=== PATIENT | male | born 1925 | race Caucasian/White ===

== ENCOUNTER 2016-04-17 14:53 | Emergency (ER) | payer OTHER, MEDICARE ==
[~2016-04-17] VITALS: Ht 170.2 cm; Wt 82.0 kg
[~2016-04-17 14:53] MED LIST: AMIT10TA6 PO; CLOT1CRE8 TOPICAL; COLA100C3 PO; COUM5TAB PO; COUM7.5T PO; D31000CA PO; FURO20TA PO; HIBI4LIQ TOPICAL; LISI2.5T3 PO; MAGN400T2 PO; METO25TA3 PO; MULTTAB67 PO; OMEP20TA PO; OXYC1TAB63 PO; PRAV20TA PO; PROS5TAB PO; TAMS5CAP PO; TYLE325T PO; ULTR50TA5 PO; [UNRECOGNIZED DRUG - CODE] TOP
[2016-04-17 14:57] VITALS: BP 134/62; PULSE 84; RESP 17; TEMP 97.9; O2SAT 98
[2016-04-17 16:55] VITALS: BP 118/64; PULSE 84; RESP 16; O2SAT 95
--- NOTE | 2016-04-17 17:29 | PD ---
HPI Chief Complaint: Back/ Neck Pain or Injury Time Seen by Provider: 17:13 Travel History International Travel<30 days: No Contact w/Intl Traveler<30days: No Traveled to known affect area: No History of Present Illness HPI 89-year-old male came to the emergency room with acute on chronic low back pain. His is here who is giving history as well. Patient has history of T12 compression fracture. He fell in November and since then has additional lower back pain. However for past 2 weeks the pain has been unbearable. He took tramadol today but he seems very uncomfortable at this point. Patient has history of renal cell carcinoma and is seeing oncology. He had a CAT scan done 2 days ago which they do not have the result of. However given his severe pain and his decided to bring him to the emergency room. [facility] Past Medical History Narrative Medical List of his past medical, surgical, social and family history is reviewed from the nursing note. Hx Anticoagulant Therapy: Yes Arthritis: Yes Asthma: No Atrial Fibrillation: Yes Autoimmune Disease: No Blood Disorders: No Anxiety: No Depression: No Heart Rhythm Problems: Yes (A FIB in last 2 yrs) Cancer: Yes (CLEAR RENAL CELL CARCINOMA) Cardiovascular Problems: Yes High Cholesterol: Yes Chemotherapy: No Chest Pain: No Congestive Heart Failure: Yes COPD: No Cerebrovascular Accident: Yes Diabetes: No Diminished Hearing: Yes (HEARING AID BILATERALLY) Endocrine: No Gastrointestinal Disorders: Yes (constipation) GERD: Yes Genitourinary: No Headaches: Yes (TEMPORAL ARTERITIS) Hepatitis: No Hiatal Hernia: No Hypertension: No Immune Disorder: Yes (temporal arteritis) Implanted Vascular Access Dvce: Yes Kidney Stones: No Musculoskeletal: Yes (lizzie hands) Neurologic: Yes Psychiatric: No Reproductive: No Respiratory: Yes Integumentary: Yes (PEMFIGIS) Immunizations Current: Yes Migraines: No Radiation Therapy: No Renal Failure: No Seizures: No Sickle Cell Disease: No Sleep Apnea: No Thyroid Disease: No Ulcer: No Tetanus Vaccination: < 5 Years Influenza Vaccination: Yes Past Surgical History Abdominal Surgery: Yes (HERNIA REPAIR) AICD: No Body Medical Devices: PROSTHESIS IN THE THROAT, MITRAL VALVE REPLACEMENT 2003 Cardiac Surgery: Yes (OPEN HEART FOR MVP) Ear Surgery: No Endocrine Surgery: No Eye Surgery: No Genitourinary Surgery: No Gynecologic Surgery: No Joint Replacement: Yes (left knee) Neurologic Surgery: No Oral Surgery: No Pacemaker: No Thoracic Surgery: Yes Other Surgery: Yes (PROTHESIS IN NECK left / CRYOABLATION) Social History Alcohol Use: No Tobacco Use: No Substance Use: No Allergies-Medications (Allergen,Severity, Reaction): Coded Allergies: Coreg (Unverified Allergy, Severe, 04/17/16) Adhesives (Verified Adverse Reaction, Severe, SKIN TEARS, 04/17/16) Hydrocodone (Verified Adverse Reaction, Mild, 04/17/16) REPORTS RED SPOTS ON SKIN AND TINGLING Comments List of his allergies reviewed from the nursing note. Reported Meds & Prescriptions Reported Meds & Active Scripts Active Percocet (Oxycodone-Acetaminophen) 5-325 mg Tab 1 Tab PO Q6H PRN Metoprolol Tartrate 25 Mg Tab 25 Mg PO BID Reported Tacrolimus Topical 0.1 % Oint 1 Applic TOPICAL DAILY PRN Multi-Vitamin/Minerals (Multiple Vitamins W/ Minerals) 1 Tab Tab 1 Tab PO DAILY Vitamin D3 (Cholecalciferol) 1,000 Unit Tab 1,000 Units PO DAILY Magnesium Oxide 420 Mg Tab 420 Mg PO BID Ultram (Tramadol HCl) 50 Mg Tab 100 Mg PO Q8HR PRN Tylenol (Acetaminophen) 325 Mg Tab 325 Mg PO Q12HR PRN Proscar (Finasteride) 5 Mg Tab 5 Mg PO DAILY Do not crush. Pravachol (Pravastatin) 20 Mg Tab 20 Mg PO HS Omeprazole 20 Mg Tab 20 Mg PO BID Lisinopril 2.5 Mg Tab 2.5 Mg PO DAILY Hibiclens Topical (Chlorhexidine Gluconate) 4% Liq 1 Applic TOPICAL EVERY OTHER DAY Furosemide 20 Mg Tab 20 Mg PO DAILY Flomax (Tamsulosin HCl) 0.4 Mg Cap 0.4 Mg PO DAILY Coumadin (Warfarin) 5 Mg Tab 5 Mg PO DAILY Colace (Docusate Sodium) 100 Mg Cap 200 Mg PO BID Amitriptyline (Amitriptyline HCl) 10 Mg Tab 10 Mg PO HS Clotrimazole AF Topical (Clotrimazole) 1% Cream 1 Applic TOPICAL BID Narrative Medication List of his home medications reviewed from the nursing note. Review of Systems Except as stated in HPI: all other systems reviewed are Neg Physical Exam Narrative GENERAL: Awake, alert, elderly, moderate distress SKIN: Warm and dry. HEAD: Atraumatic. Normocephalic. EYES: Pupils equal and round. No scleral icterus. No injection or drainage. ENT: No nasal bleeding or discharge. Mucous membranes pink and moist. NECK: Trachea midline. No JVD. CARDIOVASCULAR: Regular rate and rhythm. No murmur appreciated. RESPIRATORY: No accessory muscle use. Clear to auscultation. Breath sounds equal bilaterally. GASTROINTESTINAL: Abdomen soft, non-tender, nondistended. Hepatic and splenic margins not palpable. MUSCULOSKELETAL: No obvious deformities. No clubbing. No cyanosis. No edema. Spine palpated, no step-offs, paraspinal spasm NEUROLOGICAL: Awake and alert. No obvious cranial nerve deficits. Motor grossly within normal limits. Normal speech. PSYCHIATRIC: Appropriate mood and affect; insight and judgment normal. Data Data Last Documented VS Vital Signs Date Time Temp Pulse Resp B/P Pulse Ox O2 Delivery O2 Flow Rate FiO2 04/17/16 18:40 99 Nasal Cannula 2 04/17/16 18:00 78 16 125/65 04/17/16 14:57 97.9 Orders Complete Blood Count With Diff (04/17/16 17:50) Basic Metabolic Panel (Bmp) (04/17/16 17:50) Mri T Spine W & W/O Contrast (04/17/16 ) Mri L Spine W&W/O Contrast (04/17/16 ) Mri Pelvis W&W/O Contrast (04/17/16 ) Morphine Inj (Morphine Inj) (04/17/16 18:00) Sodium Chlorid 0.9% 500 Ml Inj (Ns 500 M (04/17/16 18:00) Gadodiamide Pf Inj (Omniscan Pf Inj) (04/17/16 20:09) Morphine Inj (Morphine Inj) (04/17/16 21:00) Acetamin-Hydrocod 325-10 Mg ([place] 10-32 (04/17/16 22:00) Oxycodone-Acetamin 10-325 Mg (Percocet 1 (04/17/16 22:00) Labs Laboratory Tests Test 04/17/16 18:05 White Blood Count 5.2 TH/MM3 Red Blood Count 3.79 MIL/MM3 Hemoglobin 11.1 GM/DL Hematocrit 33.8 % Mean Corpuscular Volume 89.1 FL Mean Corpuscular Hemoglobin 29.2 PG Mean Corpuscular Hemoglobin 32.8 % Concent Red Cell Distribution Width 14.6 % Platelet Count 173 TH/MM3 Mean Platelet Volume 8.2 FL Neutrophils (%) (Auto) 56.8 % Lymphocytes (%) (Auto) 26.0 % Monocytes (%) (Auto) 10.9 % Eosinophils (%) (Auto) 5.1 % Basophils (%) (Auto) 1.2 % Neutrophils # (Auto) 3.0 TH/MM3 Lymphocytes # (Auto) 1.4 TH/MM3 Monocytes # (Auto) 0.6 TH/MM3 Eosinophils # (Auto) 0.3 TH/MM3 Basophils # (Auto) 0.1 TH/MM3 CBC Comment DIFF FINAL Differential Comment Sodium Level 140 MEQ/L Potassium Level 4.5 MEQ/L Chloride Level 102 MEQ/L Carbon Dioxide Level 32.7 MEQ/L Anion Gap 5 MEQ/L Blood Urea Nitrogen 23 MG/DL Creatinine 1.34 MG/DL Estimat Glomerular Filtration 50 ML/MIN Rate Random Glucose 94 MG/DL Calcium Level 8.8 MG/DL MDM Medical Decision Making Medical Screen Exam Complete: Yes Emergency Medical Condition: Yes Medical Record Reviewed: Yes Differential Diagnosis Compression fracture, metastatic bone disease Narrative Course 6:49 PM I have ordered an MRI of his spine. Awaiting for the MRI to be done and resulted. Patient was treated with morphine for pain. Case was signed over to the oncoming ER physician. Blood test results of back and patient has some renal insufficiency. Otherwise blood test results are within acceptable limit. Patient is getting 500 cc of IV fluid bolus. Procedures EKG Prior to Arrival: No Scripts Oxycodone-Acetaminophen (Percocet)5-325 mg Tab1 Tab PO Q6H PRN (PAIN) #20 TAB Ref 0 Prov:Geoff Reynolds MD 04/17/16 Sissy Ivan MD Apr 17, 2016 17:29
[2016-04-17 18:00] VITALS: BP 125/65; PULSE 78; RESP 16; O2SAT 95
[2016-04-17] MEDS ORDERED: MORPHINE SULFATE 4 MG/ML INJ IV PUSH ONE ×2 (18:00→21:00)
[2016-04-17] MEDS ORDERED: SODIUM CHLORID 0.9% 500 ML INJ 500 ML IV ONE (18:00)
[2016-04-17] MEDS ORDERED: VITA100018 PO (18:09)
[2016-04-17] MEDS ORDERED: MULTTAB62 PO (18:09)
[2016-04-17] MEDS ORDERED: MAGN420T PO (18:09)
[2016-04-17] MEDS ORDERED: TACR0.1O TOPICAL (18:10)
[2016-04-17 18:28] LABS: BASOPHIL # 0.1 TH/MM3 (0-0.2); BASOPHIL % 1.2 % (0.0-2.0); EOSINOPHIL # 0.3 TH/MM3 (0-0.4); EOSINOPHIL % 5.1 % (0.0-4.0); HEMATOCRIT 33.8 % (39.0-51.0); HEMO FLAGS DIFF FINAL; LYMPHOCYTE # 1.4 TH/MM3 (1.0-4.8); MEAN CELL VOLUME 89.1 FL (80.0-100.0); MEAN CORPUSCULAR HEMOGLOBIN 29.2 PG (27.0-34.0); MEAN CORPUSCULAR HGB CONC 32.8 % (32.0-36.0); MONO % 10.9 % (0.0-8.0); NEUT % 56.8 % (16.0-70.0); PLATELET COUNT 173 TH/MM3 (150-450); RED BLOOD COUNT 3.79 MIL/MM3 (4.50-5.90); RED CELL DISTRIBUTION WIDTH 14.6 % (11.6-17.2); WHITE BLOOD COUNT 5.2 TH/MM3 (4.0-11.0)
[2016-04-17 18:48] LABS: BICARBONATE 32.7 MEQ/L (21.0-32.0); POTASSIUM 4.5 MEQ/L (3.5-5.1)
--- NOTE | 2016-04-17 19:02 | PD ---
Physical Exam Date Seen by Provider: Apr 17, 2016 Time Seen by Provider: 19:01 Narrative The patient is a 89-year-old male who was initially evaluated by the previous physician, Dr. Ivan. Please refer to the initial history, physical, diagnostic evaluation, treatment modality plan. The patient has a history of renal cell carcinoma and complains of increasing back pain, apparently the patient recently had a CT of the lumbar spine. The patient signed out at 7 PM with MRI of the spine and pelvis pending, evaluation for possible metastasis and increasing pain. Data Data Last Documented VS Vital Signs Date Time Temp Pulse Resp B/P Pulse Ox O2 Delivery O2 Flow Rate FiO2 04/17/16 18:40 99 Nasal Cannula 2 04/17/16 18:00 78 16 125/65 04/17/16 14:57 97.9 Orders Complete Blood Count With Diff (04/17/16 17:50) Basic Metabolic Panel (Bmp) (04/17/16 17:50) Mri T Spine W & W/O Contrast (04/17/16 ) Mri L Spine W&W/O Contrast (04/17/16 ) Mri Pelvis W&W/O Contrast (04/17/16 ) Morphine Inj (Morphine Inj) (04/17/16 18:00) Sodium Chlorid 0.9% 500 Ml Inj (Ns 500 M (04/17/16 18:00) Gadodiamide Pf Inj (Omniscan Pf Inj) (04/17/16 20:09) Morphine Inj (Morphine Inj) (04/17/16 21:00) Acetamin-Hydrocod 325-10 Mg ([place] 10-32 (04/17/16 22:00) Oxycodone-Acetamin 10-325 Mg (Percocet 1 (04/17/16 22:00) Labs Laboratory Tests Test 04/17/16 18:05 White Blood Count 5.2 TH/MM3 Red Blood Count 3.79 MIL/MM3 Hemoglobin 11.1 GM/DL Hematocrit 33.8 % Mean Corpuscular Volume 89.1 FL Mean Corpuscular Hemoglobin 29.2 PG Mean Corpuscular Hemoglobin 32.8 % Concent Red Cell Distribution Width 14.6 % Platelet Count 173 TH/MM3 Mean Platelet Volume 8.2 FL Neutrophils (%) (Auto) 56.8 % Lymphocytes (%) (Auto) 26.0 % Monocytes (%) (Auto) 10.9 % Eosinophils (%) (Auto) 5.1 % Basophils (%) (Auto) 1.2 % Neutrophils # (Auto) 3.0 TH/MM3 Lymphocytes # (Auto) 1.4 TH/MM3 Monocytes # (Auto) 0.6 TH/MM3 Eosinophils # (Auto) 0.3 TH/MM3 Basophils # (Auto) 0.1 TH/MM3 CBC Comment DIFF FINAL Differential Comment Sodium Level 140 MEQ/L Potassium Level 4.5 MEQ/L Chloride Level 102 MEQ/L Carbon Dioxide Level 32.7 MEQ/L Anion Gap 5 MEQ/L Blood Urea Nitrogen 23 MG/DL Creatinine 1.34 MG/DL Estimat Glomerular Filtration 50 ML/MIN Rate Random Glucose 94 MG/DL Calcium Level 8.8 MG/DL [facility] Medical Record Reviewed: Yes Supervised Visit with MAZIN: No Interpretation(s) Laboratory Tests Test 04/17/16 18:05 White Blood Count 5.2 TH/MM3 Red Blood Count 3.79 MIL/MM3 Hemoglobin 11.1 GM/DL Hematocrit 33.8 % Mean Corpuscular Volume 89.1 FL Mean Corpuscular Hemoglobin 29.2 PG Mean Corpuscular Hemoglobin 32.8 % Concent Red Cell Distribution Width 14.6 % Platelet Count 173 TH/MM3 Mean Platelet Volume 8.2 FL Neutrophils (%) (Auto) 56.8 % Lymphocytes (%) (Auto) 26.0 % Monocytes (%) (Auto) 10.9 % Eosinophils (%) (Auto) 5.1 % Basophils (%) (Auto) 1.2 % Neutrophils # (Auto) 3.0 TH/MM3 Lymphocytes # (Auto) 1.4 TH/MM3 Monocytes # (Auto) 0.6 TH/MM3 Eosinophils # (Auto) 0.3 TH/MM3 Basophils # (Auto) 0.1 TH/MM3 CBC Comment DIFF FINAL Differential Comment Sodium Level 140 MEQ/L Potassium Level 4.5 MEQ/L Chloride Level 102 MEQ/L Carbon Dioxide Level 32.7 MEQ/L Anion Gap 5 MEQ/L Blood Urea Nitrogen 23 MG/DL Creatinine 1.34 MG/DL Estimat Glomerular Filtration 50 ML/MIN Rate Random Glucose 94 MG/DL Calcium Level 8.8 MG/DL Last Impressions Thoracic Spine MRI 04/17/16 0000 Signed Impressions: Service Date/Time: April 19:08 - CONCLUSION: 1. No acute fracture or subluxation of the thoracic spine. 2. Diffuse marrow heterogeneity , likely osteopenia. No focal bone lesion seen. 3. There is moderate, chronic appearing superior endplate compression deformity of the T12 vertebral body. 4. Expanded T11/T12 disc with slight signal heterogeneity, likely on the basis of the old T12 fracture. Discitis is not suspected. 5. Exaggerated thoracic kyphosis. Mild multilevel degenerative changes. Cristiano Espinoza MD Pelvis MRI 04/17/16 0000 Signed Impressions: Service Date/Time: April 19:08 - CONCLUSION: Mild bilateral iliacus muscle edema, presumably strain or irritation. Otherwise normal MRI of the pelvis. Cristiano Espinoza MD Lumbar Spine MRI 04/17/16 0000 Signed Impressions: Service Date/Time: April 19:08 - CONCLUSION: 1. No fracture or acute-appearing malalignment of lumbar spine. 2. Multilevel degenerative changes as above. It is associated moderate spinal stenosis at L4/L5. 3. Anterior annular fissures at multiple levels which may be additional sources of low back pain. Cristiano Espinoza MD Differential Diagnosis Differential diagnosis includes compression fracture, radiculopathy, metastasis , fracture, spinal stenosis, back strain. Narrative Course The patient was initially evaluated by the previous physician, Dr. Ivan. Please refer to the initial history, physical, diagnostic evaluation, and treatment modality plan. The patient was signed out at 7 PM with MRI of the thoracic spine, lumbar spine, and pelvis pending. The patient's MRIs were noted , the patient has degenerative changes, annular fissure tears, and bilateral mild edema of the iliacus muscle, possibly from irritation and/or strain. No obvious bone metastasis. I discussed the MRI findings with the patient and his at bedside. I advised the patient to [facility] and/or pain management and/ or orthopedics if pain continues. Patient will be provided a copy of his MRIs at discharge and pain medications at discharge. Diagnosis Primary Impression: Back pain Qualified Code: M54.5 - Low back pain without sciatica, unspecified back pain laterality, unspecified chronicity Patient Instructions: General Instructions Additional Instruction: Please provide a patient a copy of his MRI results at discharge. Pain medications as directed. Follow-up with your primary physician. Return if symptoms worsen or progress. Med/Other Pt SpecificInfo: Prescription(s) given Scripts Oxycodone-Acetaminophen (Percocet)5-325 mg Tab1 Tab PO Q6H PRN (PAIN) #20 TAB Ref 0 Prov:Geoff Reynodls MD 04/17/16 Disposition: 01 DISCHARGE HOME Condition: Stable Geoff Reynolds MD Apr 17, 2016 19:02
[2016-04-17] MEDS ORDERED: GADODIAMIDE PF 287 MG/ML 20 ML VIAL (for RAD MRI) IV ONE (20:09)
--- NOTE | 2016-04-17 21:15 | RADRPT ---
EXAM DATE/TIME: 04/17/2016 19:08 [facility] COMPARISON: No previous studies available for comparison. INDICATIONS : Pain. CONTRAST: 16 cc Omniscan (gadodiamide) IV MEDICAL HISTORY : Congestive heart failure. Stroke Renal cancer. SURGICAL HISTORY : Right carotid surgery, left knee replacement, vocal cord prosthesis, valve replacement and hernia rep air. ENCOUNTER: Initial ACUITY: 1 day PAIN SCORE: 6/10 LOCATION: Back. TECHNIQUE: Multiplanar multisequence MRI of the thoracic spine was performed. FINDINGS: There is a severe chronic appearing kyphotic deformity. There is mild, diffuse heterogeneity of the m arrow likely on the basis of osteoporosis. There is moderate, chronic appearing compression deformity superior endplate of T12. I don't see an acute fracture or well-defined/measurable bone lesion. There is some enhancement in T1 signal of the T11/T12 disc, probably partly calcified. It may enhance slightly. Doubt discitis. Small posterior disc protrusions are seen at T9/T10 T10/T11, T11/T12 and T12/L1. No significant osmin inal or spinal stenosis demonstrated at any level. CONCLUSION: 1. No acute fracture or subluxation of the thoracic spine. 2. Diffuse marrow heterogeneity, likely osteopenia. No focal bone lesion seen. 3. There is moderate, chronic appearing superior endplate compression deformity of the T12 vertebral body. 4. Expanded T11/T12 disc with slight signal heterogeneity, likely on the basis of the old T12 fractur e. Discitis is not suspected. 5. Exaggerated thoracic kyphosis. Mild multilevel degenerative changes. Cristiano Espinoza MD on April 17, 2016 at 21:09 Board Certified Radiologist. This report was verified electronically.
--- NOTE | 2016-04-17 21:20 | RADRPT ---
EXAM DATE/TIME: 04/17/2016 19:08 [facility] COMPARISON: No previous studies available for comparison. INDICATIONS : Pain. CONTRAST: 16 cc Omniscan (gadodiamide) IV MEDICAL HISTORY : Congestive heart failure. Stroke Renal cancer. SURGICAL HISTORY : Right carotid surgery, left knee replacement, vocal cord prosthesis, valve replacement and hernia rep air. ENCOUNTER: Initial ACUITY: 1 day PAIN SCORE: 6/10 LOCATION: Back. TECHNIQUE: Multiplanar multisequence MRI of the lumbar spine was performed with and without contrast. FINDINGS: The most caudal appearing lumbar vertebra is numbered as L5. VERTEBRAE: Diffusely heterogeneous marrow without a focal lesion. Lumbar vertebral bodies have normal height. Th ere is grade 1 degenerative appearing anterolisthesis at L4/L5. [place]: Normal level and configuration. POST CONTRAST: No abnormal areas of contrast enhancement are seen. T12-L1: The disc is desiccated but otherwise within normal limits. No foraminal or spinal stenosis. L1-L2: The disc is desiccated but otherwise within normal limits. No foraminal or spinal stenosis. L2-L3: The disc is desiccated and has mild loss of height. There is diffuse bulging of the disc annulus and mild, bilateral facet osteoarthritis. Mild bilateral foraminal encroachment. L3-L4: The disc is desiccated and has mild to moderate loss of height. There is an anterior annular fissure. Posteriorly, there is a small, broad disc protrusion and moderate bilateral facet osteoarthritis. Th ere is mild spinal stenosis, mainly the right lateral recess. There is slight foraminal encroachment, mainly on the right. L4-L5: The disc is desiccated and has mild loss of height. There is an anterior annular fissure. Grade 1 deg enerative anterolisthesis. There is a small, broad posterior disc protrusion and moderate to severe b ilateral facet osteoarthritis with hypertrophic bone and mild thickening of the ligamentum flavum. Th ere is moderate spinal stenosis and mild, bilateral foraminal encroachment. L5-S1: The disc is desiccated but otherwise within normal limits. There is mild right and moderate left face t osteoarthritis without significant foraminal or spinal stenosis. L5 may be partially sacralized on the left. CONCLUSION: 1. No fracture or acute-appearing malalignment of lumbar spine. 2. Multilevel degenerative changes as above. It is associated moderate spinal stenosis at L4/L5. 3. Anterior annular fissures at multiple levels which may be additional sources of low back pain. Cristiano Espinoza MD on April 17, 2016 at 21:14 Board Certified Radiologist. This report was verified electronically.
--- NOTE | 2016-04-17 21:28 | RADRPT ---
EXAM DATE/TIME: 04/17/2016 19:08 [facility] COMPARISON: CT ABDOMEN & PELVIS W/O CONTRAST, April 06, 2014, 22:41. INDICATIONS : Pain. Left sided back pain. CONTRAST: 16 cc Omniscan (gadodiamide) IV MEDICAL HISTORY : Congestive heart failure. Stroke Renal cancer. SURGICAL HISTORY : Right carotid surgery, left knee replacement, vocal cord prosthesis, valve replacement and hernia rep air. ENCOUNTER: Initial ACUITY: 1 day PAIN SCORE: 8/10 LOCATION: Back and pelvis. TECHNIQUE: Multiplanar, multisequence magnetic resonance imaging of the pelvis was performed. FINDINGS: The bony pelvis is intact and has normal morphology. No subluxation of either hip. Very mild bilatera l hip oss arthritis noted. Patient has mild edema of both iliacus muscles. Incidentally seen lobulated right pelvic kidney. The morphology and location are similar to the prior CT. CONCLUSION: Mild bilateral iliacus muscle edema, presumably strain or irritation. Otherwise normal MRI of the pel vis. Cristiano Espinoza MD on April 17, 2016 at 21:24 Board Certified Radiologist. This report was verified electronically.
[2016-04-17] MEDS ORDERED: PERC5TAB12 PO (21:54)
[2016-04-17] MEDS ORDERED: oxyCODONE/ACETAMINOPHEN 10 MG/325 MG TAB PO ONE (22:00)
[2016-04-17] MEDS ORDERED: ACETAMINOPHEN/HYDROcodone 325 MG/10 MG TAB PO ONE (22:00)
== END 2016-04-17 22:29 | disposition home or self-care (01) ==
LOC: NEPC 14:53
DX: M54.5 Low back pain (principal); G89.29 Other chronic pain; I48.91 Unspecified atrial fibrillation; E78.00 Pure hypercholesterolemia, unspecified; I50.9 Heart failure, unspecified; Z95.2 Presence of prosthetic heart valve; Z79.01 Long term (current) use of anticoagulants
CPT/HCPCS: 72157; 72158; 72197; 80048; 85025; 96361; 96374; 96376; 99284; A9579; J2270; J7040

== ENCOUNTER 2016-04-29 10:35 | Inpatient (IN) | payer OTHER, MEDICARE ==
[2016-04-29] VITALS (7 sets, daily range): BP systolic 140–180; BP diastolic 64–91; PULSE 50–87; RESP 16–26; TEMP 98.4–98.5; O2SAT 96–100
[~2016-04-29 10:35] MED LIST changes: -COUM7.5T PO; -D31000CA PO; -MAGN400T2 PO; +MAGN420T PO; +MULTTAB62 PO; -MULTTAB67 PO; -OXYC1TAB63 PO; +PERC5TAB12 PO; +TACR0.1O TOPICAL; +VITA100018 PO; -[UNRECOGNIZED DRUG - CODE] TOP
--- NOTE | 2016-04-29 11:12 | PD ---
HPI Chief Complaint: Chest Pain Time Seen by Provider: 10:38 Travel History International Travel<30 days: No Contact w/Intl Traveler<30days: No Traveled to known affect area: No History of Present Illness HPI The patient is a 89-year-old male who presents emergency department for chest pain or shortness of breath. The patient has a two-week history of shortness of breath which is progressively been worsening. He also notes a 10 pound weight gain over the last several weeks with increase in edema lower extremities. He now complains of anterior chest pain and pressure with exertional shortness of breath. The patient was seen by his oncologist earlier today, Dr. Dawkins, who referred him to the [facility] clinic. The [facility] told the patient it would be approximately one hour to be evaluated and sent him to the emergency department. The patient is followed by his oncologist for history of renal cell carcinoma. The patient does have a history congestive heart failure follows up with the mechanical systems designer at the [facility] clinic. He is also been seen by Dr. Gonzalez in the past. The patient is currently on Coumadin. He denies any current nausea, vomiting, or abdominal pain. He does note when he bends over, his face will flush. PFSH Past Medical History Hx Anticoagulant Therapy: Yes Arthritis: Yes Asthma: No Atrial Fibrillation: Yes Autoimmune Disease: No Blood Disorders: No Anxiety: No Depression: No Heart Rhythm Problems: Yes (A FIB in last 2 yrs) Cancer: Yes (CLEAR RENAL CELL CARCINOMA) Cardiovascular Problems: Yes High Cholesterol: Yes Chemotherapy: No Chest Pain: No Congestive Heart Failure: Yes COPD: No Cerebrovascular Accident: Yes Diabetes: No Diminished Hearing: Yes (HEARING AID BILATERALLY) Endocrine: No Gastrointestinal Disorders: Yes (constipation) GERD: Yes Genitourinary: No Headaches: Yes (TEMPORAL ARTERITIS) Hepatitis: No Hiatal Hernia: No Hypertension: No Immune Disorder: Yes (temporal arteritis) Implanted Vascular Access Dvce: Yes Kidney Stones: No Musculoskeletal: Yes (lizzie hands) Neurologic: Yes Psychiatric: No Reproductive: No Respiratory: Yes Integumentary: Yes (PEMFIGIS) Immunizations Current: Yes Migraines: No Radiation Therapy: No Renal Failure: No Seizures: No Sickle Cell Disease: No Sleep Apnea: No Thyroid Disease: No Ulcer: No Past Surgical History Abdominal Surgery: Yes (HERNIA REPAIR) AICD: No Body Medical Devices: PROSTHESIS IN THE THROAT, MITRAL VALVE REPLACEMENT 2003 Cardiac Surgery: Yes (OPEN HEART FOR MVP) Ear Surgery: No Endocrine Surgery: No Eye Surgery: No Genitourinary Surgery: No Gynecologic Surgery: No Joint Replacement: Yes (left knee) Neurologic Surgery: No Oral Surgery: No Pacemaker: No Thoracic Surgery: Yes Other Surgery: Yes (PROTHESIS IN NECK left / CRYOABLATION) Social History Alcohol Use: No Tobacco Use: No Substance Use: No Allergies-Medications (Allergen,Severity, Reaction): Coded Allergies: Coreg (Verified Allergy, Severe, 04/29/16) Adhesives (Verified Adverse Reaction, Severe, SKIN TEARS, 04/29/16) Hydrocodone (Verified Adverse Reaction, Mild, 04/29/16) REPORTS RED SPOTS ON SKIN AND TINGLING Reported Meds & Prescriptions Reported Meds & Active Scripts Active Percocet (Oxycodone-Acetaminophen) 5-325 mg Tab 1 Tab PO Q6H PRN Metoprolol Tartrate 25 Mg Tab 25 Mg PO BID Reported Coumadin (Warfarin) 5 Mg Tab 2.5 Mg PO MO Take 1/2 tablet (2.5mg) daily on Thursday Tacrolimus Topical 0.1 % Oint 1 Applic TOPICAL DAILY PRN Multi-Vitamin/Minerals (Multiple Vitamins W/ Minerals) 1 Tab Tab 1 Tab PO DAILY Vitamin D3 (Cholecalciferol) 1,000 Unit Tab 1,000 Units PO DAILY Magnesium Oxide 420 Mg Tab 420 Mg PO BID Ultram (Tramadol HCl) 50 Mg Tab 100 Mg PO Q8HR PRN Tylenol (Acetaminophen) 325 Mg Tab 325 Mg PO Q12HR PRN Proscar (Finasteride) 5 Mg Tab 5 Mg PO DAILY Do not crush. Pravachol (Pravastatin) 20 Mg Tab 20 Mg PO HS Omeprazole 20 Mg Tab 20 Mg PO BID Lisinopril 2.5 Mg Tab 2.5 Mg PO DAILY Hibiclens Topical (Chlorhexidine Gluconate) 4% Liq 1 Applic TOPICAL EVERY OTHER DAY Furosemide 20 Mg Tab 20 Mg PO DAILY Flomax (Tamsulosin HCl) 0.4 Mg Cap 0.4 Mg PO DAILY Coumadin (Warfarin) 5 Mg Tab 5 Mg PO SUTUWETHFRSA Take 1 tablet (5mg) daily on Thursday,Thursday,Thursday,,Thursday and Thursday Colace (Docusate Sodium) 100 Mg Cap 200 Mg PO BID Amitriptyline (Amitriptyline HCl) 10 Mg Tab 10 Mg PO HS Clotrimazole AF Topical (Clotrimazole) 1% Cream 1 Applic TOPICAL BID Review of Systems Except as stated in HPI: all other systems reviewed are Neg General / Constitutional: Positive: Weight Gain, No: Fever Cardiovascular: Positive: Chest Pain or Discomfort, Dyspnea on exertion Respiratory: Positive: Shortness of Breath, No: Cough Gastrointestinal: No: Nausea, Vomiting, Abdominal Pain Musculoskeletal: Positive: Edema Physical Exam Narrative GENERAL: Awake, alert, 89-year-old male who appears his stated age and in mild respiratory distress. SKIN: Warm and dry. HEAD: Atraumatic. Normocephalic. EYES: No injection or drainage. ENT: No nasal bleeding or discharge. Mucous membranes pink and moist. NECK: Trachea midline. No JVD. CARDIOVASCULAR: Regular, bradycardic with a heart rate in the 50s. RESPIRATORY: Crackles noted in the bases bilaterally. GASTROINTESTINAL: Abdomen soft, non-tender, nondistended. No rebound tenderness. MUSCULOSKELETAL: No obvious deformities. No clubbing. No cyanosis. Bilateral lower extremity pitting edema with mild swelling of the right leg greater than the left leg. NEUROLOGICAL: Awake and alert. No obvious cranial nerve deficits. Motor grossly within normal limits. Normal speech. PSYCHIATRIC: Appropriate mood and affect; insight and judgment normal. Data Data Last Documented VS Vital Signs Date Time Temp Pulse Resp B/P Pulse Ox O2 Delivery O2 Flow Rate FiO2 04/29/16 12:37 53 22 157/67 100 Nasal Cannula 04/29/16 11:30 2 04/29/16 10:38 98.5 Orders Electrocardiogram (04/29/16 ) Complete Blood Count With Diff (04/29/16 11:06) Comprehensive Metabolic Panel (04/29/16 11:06) B-Type Natriuretic Peptide (04/29/16 11:06) Act Partial Throm Time (Ptt) (04/29/16 11:06) Prothrombin Time / Inr (Pt) (04/29/16 11:06) Magnesium (Mg) (04/29/16 11:06) Ckmb (Isoenzyme) Profile (04/29/16 11:06) Troponin I (04/29/16 11:06) Iv Access Insert/Monitor (04/29/16 11:06) Ecg Monitoring (04/29/16 11:06) Oximetry (04/29/16 11:06) Oxygen Administration (04/29/16 11:06) Chest, Single Ap (04/29/16 11:06) Sodium Chloride 0.9% Flush (Ns Flush) (04/29/16 11:15) Furosemide Inj (Lasix Inj) (04/29/16 11:15) Aspirin Chew (Aspirin Chew) (04/29/16 11:15) Nitroglycerin 2% Oint (Nitroglycerin 2% (04/29/16 11:15) Admit Order (Ed Use Only) (04/29/16 13:14) Labs Laboratory Tests Test 04/29/16 11:10 White Blood Count 7.2 TH/MM3 Red Blood Count 3.74 MIL/MM3 Hemoglobin 10.9 GM/DL Hematocrit 33.4 % Mean Corpuscular Volume 89.3 FL Mean Corpuscular Hemoglobin 29.2 PG Mean Corpuscular Hemoglobin 32.7 % Concent Red Cell Distribution Width 14.9 % Platelet Count 164 TH/MM3 Mean Platelet Volume 8.6 FL Neutrophils (%) (Auto) 77.8 % Lymphocytes (%) (Auto) 11.8 % Monocytes (%) (Auto) 7.6 % Eosinophils (%) (Auto) 2.2 % Basophils (%) (Auto) 0.6 % Neutrophils # (Auto) 5.6 TH/MM3 Lymphocytes # (Auto) 0.9 TH/MM3 Monocytes # (Auto) 0.5 TH/MM3 Eosinophils # (Auto) 0.2 TH/MM3 Basophils # (Auto) 0.0 TH/MM3 CBC Comment DIFF FINAL Differential Comment Prothrombin Time 38.8 SEC Prothromb Time International 3.3 RATIO Ratio Activated Partial 54.7 SEC Thromboplast Time Sodium Level 140 MEQ/L Potassium Level 4.4 MEQ/L Chloride Level 103 MEQ/L Carbon Dioxide Level 30.4 MEQ/L Anion Gap 7 MEQ/L Blood Urea Nitrogen 24 MG/DL Creatinine 1.34 MG/DL Estimat Glomerular Filtration 50 ML/MIN Rate Random Glucose 80 MG/DL Calcium Level 9.1 MG/DL Magnesium Level 2.3 MG/DL Total Bilirubin 0.9 MG/DL Aspartate Amino Transf 17 U/L (AST/SGOT) Alanine Aminotransferase 15 U/L (ALT/SGPT) Alkaline Phosphatase 80 U/L Total Creatine Kinase 62 U/L Troponin I LESS THAN 0.02 NG/ML B-Type Natriuretic Peptide 214 PG/ML Total Protein 7.1 GM/DL Albumin 3.6 GM/DL [facility] Medical Decision Making Medical Screen Exam Complete: Yes Emergency Medical Condition: Yes Medical Record Reviewed: Yes Interpretation(s) EKG reveals normal sinus rhythm with first-degree AV block, rate 61. Chest x-ray reveals mild cardiomegaly. No acute focal pulmonary infiltrate or pulmonary vascular congestion. Laboratory Tests Test 04/29/16 11:10 White Blood Count 7.2 TH/MM3 Red Blood Count 3.74 MIL/MM3 Hemoglobin 10.9 GM/DL Hematocrit 33.4 % Mean Corpuscular Volume 89.3 FL Mean Corpuscular Hemoglobin 29.2 PG Mean Corpuscular Hemoglobin 32.7 % Concent Red Cell Distribution Width 14.9 % Platelet Count 164 TH/MM3 Mean Platelet Volume 8.6 FL Neutrophils (%) (Auto) 77.8 % Lymphocytes (%) (Auto) 11.8 % Monocytes (%) (Auto) 7.6 % Eosinophils (%) (Auto) 2.2 % Basophils (%) (Auto) 0.6 % Neutrophils # (Auto) 5.6 TH/MM3 Lymphocytes # (Auto) 0.9 TH/MM3 Monocytes # (Auto) 0.5 TH/MM3 Eosinophils # (Auto) 0.2 TH/MM3 Basophils # (Auto) 0.0 TH/MM3 CBC Comment DIFF FINAL Differential Comment Prothrombin Time 38.8 SEC Prothromb Time International 3.3 RATIO Ratio Activated Partial 54.7 SEC Thromboplast Time Sodium Level 140 MEQ/L Potassium Level 4.4 MEQ/L Chloride Level 103 MEQ/L Carbon Dioxide Level 30.4 MEQ/L Anion Gap 7 MEQ/L Blood Urea Nitrogen 24 MG/DL Creatinine 1.34 MG/DL Estimat Glomerular Filtration 50 ML/MIN Rate Random Glucose 80 MG/DL Calcium Level 9.1 MG/DL Magnesium Level 2.3 MG/DL Total Bilirubin 0.9 MG/DL Aspartate Amino Transf 17 U/L (AST/SGOT) Alanine Aminotransferase 15 U/L (ALT/SGPT) Alkaline Phosphatase 80 U/L Total Creatine Kinase 62 U/L Troponin I LESS THAN 0.02 NG/ML B-Type Natriuretic Peptide 214 PG/ML Total Protein 7.1 GM/DL Albumin 3.6 GM/DL Differential Diagnosis Differential diagnosis includes congestive heart failure, pleural effusion, pulmonary embolism, acute coronary syndrome, pulmonary edema. Narrative Course IV was established, labs are drawn and sent, and the patient was placed on cardiac telemetry monitoring and continuous pulse oximetry monitoring. EKG was ordered and interpreted. Chest x-ray was obtained. The patient was administered aspirin 162 mg orally and Nitropaste 1 inch topically. Chest x- ray reveals car to megaly, no acute pulmonary edema noted. BNP is mildly elevated. Initial troponin is negative. The patient does have exertional shortness of breath, chest pain, and lower extremity edema. This may be related to underlying cardiomyopathy with early congestive heart failure versus acute coronary syndrome. Therefore, patient will be 23 hour observation for serial cardiac enzymes and further evaluation by the medical team. Physician Communication Physician Communication The patient's primary physician is a [facility]. Therefore, the on-call medical service was paged for 23 hour observation. I discussed the patient with the residents who agreed with 23 hour observation. Diagnosis Primary Impression: CHF (congestive heart failure) Qualified Code: I50.9 - Acute on chronic congestive heart failure, unspecified congestive heart failure type Additional Impression: Chest pain Qualified Code: R07.9 - Chest pain, unspecified type Admitting Information Admitting Physician Requests: Observation Condition: Stable Geoff Reynolds MD Apr 29, 2016 11:12
[2016-04-29] MEDS ORDERED: FUROSEMIDE 40 MG/4 ML VIAL IVP ONE (11:15)
[2016-04-29] MEDS ORDERED: NITROGLYCERIN 2% OINT 1 GM PACKET TOPICAL ONE (11:15)
[2016-04-29] MEDS ORDERED: ASPIRIN 81 MG CHEW TAB CHEW ONE (11:15)
[2016-04-29] MEDS: SODIUM CHLORIDE 0.9% FLUSH 5 ML FLUSH IVF PRN (11:26)
[2016-04-29] MEDS ORDERED: COUM5TAB PO (11:28)
[2016-04-29 11:50] LABS: AUTOMATED NEUTROPHIL # 5.6 TH/MM3 (1.8-7.7); BASOPHIL % 0.6 % (0.0-2.0); EOSINOPHIL # 0.2 TH/MM3 (0-0.4); EOSINOPHIL % 2.2 % (0.0-4.0); HEMATOCRIT 33.4 % (39.0-51.0); HEMO FLAGS DIFF FINAL; LYMPH % 11.8 % (9.0-44.0); LYMPHOCYTE # 0.9 TH/MM3 (1.0-4.8); MEAN CELL VOLUME 89.3 FL (80.0-100.0); MEAN CORPUSCULAR HEMOGLOBIN 29.2 PG (27.0-34.0); MEAN CORPUSCULAR HGB CONC 32.7 % (32.0-36.0); MONO % 7.6 % (0.0-8.0); NEUT % 77.8 % (16.0-70.0); PLATELET COUNT 164 TH/MM3 (150-450); RED BLOOD COUNT 3.74 MIL/MM3 (4.50-5.90); RED CELL DISTRIBUTION WIDTH 14.9 % (11.6-17.2); WHITE BLOOD COUNT 7.2 TH/MM3 (4.0-11.0)
[2016-04-29 12:00] LABS: APTT (PATIENT) 54.7 SEC (24.3-30.1); INTERNATIONAL NORMALIZED RATIO 3.3 RATIO; PROTHROMBIN TIME - PATIENT 38.8 SEC (9.8-11.6)
[2016-04-29 12:13] LABS: ALT (GPT) 15 U/L (12-78); ANION GAP 7 MEQ/L (5-15); AST (GOT) 17 U/L (15-37); BICARBONATE 30.4 MEQ/L (21.0-32.0); BLOOD UREA NITROGEN 24 MG/DL (7-18); CHLORIDE 103 MEQ/L (98-107); GLOMERULAR FILTRATION RATE 50 ML/MIN (>89); MAGNESIUM 2.3 MG/DL (1.5-2.5); POTASSIUM 4.4 MEQ/L (3.5-5.1); SODIUM (NA) 140 MEQ/L (136-145)
[2016-04-29 12:17] LABS: ALKALINE PHOSPHATASE 80 U/L (45-117); CREATINE KINASE 62 U/L (39-308); TOTAL BILIRUBIN ADULT 0.9 MG/DL (0.2-1.0)
--- NOTE | 2016-04-29 12:19 | RADRPT ---
EXAM DATE/TIME: 04/29/2016 11:16 [facility] COMPARISON: CHEST SINGLE AP, December 09, 2015, 19:19. INDICATIONS: Short of breath. Chest pain. MEDICAL HISTORY: Congestive heart failure. Stroke. Renal cell carcinoma. SURGICAL HISTORY: Total knee replacement, left. Right carotid surgery. Vocal cord prosthesis. ENCOUNTER: Initial ACUITY: 1 day PAIN SCORE: 4/10 LOCATION: Bilateral chest FINDINGS: Median sternotomy wires are noted status post cardiac surgery. Cardiac valve replacement is unchange d. The heart is mildly prominent. The pulmonary vascular pattern is normal. The lungs are clear. CONCLUSION: 1. Mild cardiomegaly. 2. No acute focal pulmonary infiltrate or pulmonary vascular congestion. Alexandro Fuller MD on April 29, 2016 at 12:02 Board Certified Radiologist. This report was verified electronically.
--- NOTE | 2016-04-29 14:49 | HHI.HP ---
[facility] Service Family Medicine Primary Care Physician [facility] Admission Diagnosis congestive heart failure, chest pain rule out ACS Diagnoses: International Travel<30 Days: No Contact w/Intl Traveler<30days: No Known Affected Area: No History of Present Illness Mr. West is a very pleasant 89 y/o male with a PMHx sig for presenting to [place] ED with worsening SOB and lower extremity edema for the past 2 weeks. He was evaluated by hematology today (for RCC) and was found to be fluid overloaded on exam and was sent to ED. The patient explains that approximately 2 weeks ago, he started noticing swelling in the legs. Reports that nothing changed 2 weeks ago that he can remember. Has gained 10 lbs over the past week and a half. Laying flat is difficult to catch his breath. Chest pain over the "pressure pain" for the past week, better since being in the hospital. Located mostly over the stomach. Sharper pain in chest 2 days ago, comes once every 15 minutes, never radiates. Left side, lasting for few seconds. Denies chest pain currently. Denies nausea with chest pain. Typically does ADLs without difficulty, now tying shoes was difficulty mainly attributed to swelling in abdomen and legs, as well as shortness of breath. Cough that is productive but over the past week has changed color to yellowish-crespo. Also reports having a "raspy throat" for about a week, as well as a sore throat. Denies changes in diet. Denies missing medications. "Floppy valve" bovine - 2003 [facility] in [place]. PICC line for sepsis / bacteremia in 2006. (Mynor Neville MD R2) Review of Systems Constitutional: DENIES: Fatigue, Fever Endocrine: DENIES: Polydipsia, Polyuria Eyes: DENIES: Blurred vision Cardiovascular: COMPLAINS OF: Dyspnea on Exertion, PND, Lower Extremity Edema, Orthopnea, DENIES: Chest pain, Palpitations Gastrointestinal: DENIES: Black stools, Bloody stools, Constipation, Diarrhea, Nausea, Vomiting Genitourinary: DENIES: Hematuria Musculoskeletal: COMPLAINS OF: Joint pain (left knee) Hematologic/lymphatic: DENIES: Bruising Psychiatric: DENIES: Confusion (Mynor Neville MD R2) Past Family Social History Past Medical History Past Medical History Coronary disease Pemphigus Temporal arteritis left side 60% blockage Carotid stenosis Low back pain Chronic systolic heart failure Atrial fibrillation Hypertension Benign prostatic hypertrophy Prior CVA, November 2015 Chronic steroid use Past Surgical History Mitral valve replacement 2004 Hernia repair Left renal biopsy with cryoablation Left knee replacement Right sided endarectomy Allergies: Coded Allergies: Coreg (Unverified Allergy, Severe, 12/03/15) Adhesives (Verified Adverse Reaction, Severe, SKIN TEARS, 12/03/15) Hydrocodone (Verified Adverse Reaction, Mild, 12/03/15) REPORTS RED SPOTS ON SKIN AND TINGLING Family History Father with prostate cancer. 2 brothers and sisters in good health. No history of CVA in the family Social History One pack tobacco 25 years. No alcohol or IV drug use. (Mynor Neville MD R2) Allergies: Coded Allergies: Coreg (Verified Allergy, Severe, 04/29/16) Adhesives (Verified Adverse Reaction, Severe, SKIN TEARS, 04/29/16) Hydrocodone (Verified Adverse Reaction, Mild, 04/29/16) REPORTS RED SPOTS ON SKIN AND TINGLING Physical Exam Vital Signs Vital Signs Date Time Temp Pulse Resp B/P Pulse Ox O2 Delivery O2 Flow Rate FiO2 04/29/16 12:37 53 22 157/67 100 Nasal Cannula 04/29/16 11:30 50 26 140/64 100 Nasal Cannula 2 04/29/16 10:38 98.5 59 16 180/80 96 04/29/16 10:35 Room Air Physical Exam GENERAL: Comfortable, RR at goal, no accessory muscle use, talking in full sentences. SKIN: multiple stuck on appearing, waxy lesions as well as small papules that are red in color. HEAD: Atraumatic. EYES: Pupils equal round and reactive. Extraocular motions intact. No scleral icterus. No injection or drainage. ENT: Nose without bleeding, purulent drainage or septal hematoma. NECK: JVD ++ CARDIOVASCULAR: Irregular rate, faint heart sounds noted, no obvious murmurs on exam. RESPIRATORY: RALES at bases. GASTROINTESTINAL: TTP at left lower quadrant, slightly distended and tense. hypoactive BSs, no HSM. MUSCULOSKELETAL: 2+ pitting edema to chins. NEUROLOGICAL: Awake and alert. Cranial nerves II through XII intact. Motor and sensory grossly within normal limits. Five out of 5 muscle strength in all muscle groups. Normal speech. Laboratory Laboratory Tests Test 04/29/16 11:10 White Blood Count 7.2 Red Blood Count 3.74 Hemoglobin 10.9 Hematocrit 33.4 Mean Corpuscular Volume 89.3 Mean Corpuscular Hemoglobin 29.2 Mean Corpuscular Hemoglobin 32.7 Concent Red Cell Distribution Width 14.9 Platelet Count 164 Mean Platelet Volume 8.6 Neutrophils (%) (Auto) 77.8 Lymphocytes (%) (Auto) 11.8 Monocytes (%) (Auto) 7.6 Eosinophils (%) (Auto) 2.2 Basophils (%) (Auto) 0.6 Neutrophils # (Auto) 5.6 Lymphocytes # (Auto) 0.9 Monocytes # (Auto) 0.5 Eosinophils # (Auto) 0.2 Basophils # (Auto) 0.0 CBC Comment DIFF FINAL Differential Comment Prothrombin Time 38.8 Prothromb Time International 3.3 Ratio Activated Partial 54.7 Thromboplast Time Sodium Level 140 Potassium Level 4.4 Chloride Level 103 Carbon Dioxide Level 30.4 Anion Gap 7 Blood Urea Nitrogen 24 Creatinine 1.34 Estimat Glomerular Filtration 50 Rate Random Glucose 80 Calcium Level 9.1 Magnesium Level 2.3 Total Bilirubin 0.9 Aspartate Amino Transf 17 (AST/SGOT) Alanine Aminotransferase 15 (ALT/SGPT) Alkaline Phosphatase 80 Total Creatine Kinase 62 Troponin I LESS THAN 0.02 B-Type Natriuretic Peptide 214 Total Protein 7.1 Albumin 3.6 (Mynor Neville MD R2) Result Diagram: 04/29/16 1110 04/29/16 1110 Septic Shock Reassessment Heart: Irregular Lungs: Crackles Skin: Warm Peripheral Pulses: Weak Right Radial Weak Left Radial Capillary Refill: <2 seconds (Mynor Neville MD R2) Assessment and Plan Assessment and Plan Mr. West is a pleasant 89 y/o male with an extensive PMHx of systolic heart failure, valve replacement, carotid stenosis, HTN, HLP, depression, VIT D deficiency, BPH, and chronic a fib, presenting with worsening SOB x 2 weeks and LE swelling. Given nitro paste in ED, along with Lasix 40 mg IV, and ASA 325. Lab work sign for BNP of 214, CR of 1.34. CXR showed mild cardiomegaly, with no acute consolidations or vascular congestion. Patient diuresed 2.5 L with IV lasix and will be admitted with a presumptive diagnosis of acute on chronic systolic heart failure. Problem # 1: Systolic Heart Failure, exacerbation Lasix 40 mg IV x 1 at 11:25, give addition 40 mg at 2300 and start BID. Monitor I&Os. Continue Metoprolol at reduced dose, home doses 25 twice a day, will give 12.5 twice a day. Pt not hypotensive. Nitropaste PRN CP ASA 325 daily Morphine 2 mg q 2 hr PRN CP Echocardiogram given valvular disease and acute worsening CHF Continuous pulse ox, O2 supplementation O2 goal O2 > 92% Trend EKG and Troponin q 6 hours Problem #2: Atrial Fibrillation Rate controlled, continue home Beta zacarias at reduced dose. INR 3.3 - hold warfarin for goal inf of 2-3 Problem #3: HTN Continue home lisinopril 2.5 mg daily Problem #4: GERD Continue home PPI Problem #5: Vit D Deficiency Continue home D3 therpay Problem #6: Depression Continue home Elavil 10 mg q HS. Problem #7: BPH Continue home tamsulosin and finasteride. Problem #8: FEN Repeat CBC and BMP in AM, electrolytes at goal. Fluid - hold IVF Nutrition, heart healthy diet. DVT ppx: currently anticoagulated at INR of 3.3 - hold prophylaxis. sdw Dr. De La Torre. dw Dr. Chantal Crowder. Code Status Full Code. (Mynor Neville MD R2) Attending Attestation THIS CASE WAS DISCUSSED WITH THE RESIDENT PHYSICIAN. I HAVE REVIEWED THE RECORD AND AGREE WITH THE ABOVE NOTE AND PLAN OF CARE WAS DISCUSSED. I HAVE AUTHORIZED THE ORDER FOR PLACEMENT IN OUT-PATIENT OBSERVATION STATUS. (Schuyler De La Torre MD) Problem List: (1) HLD (hyperlipidemia) Status: Chronic (2) GERD (gastroesophageal reflux disease) Status: Chronic (3) DVT prophylaxis Status: Acute (4) BPH (benign prostatic hypertrophy) Status: Chronic (5) Carotid stenosis Status: Acute (6) Chest pain Status: Acute (7) Acute on chronic heart failure Status: Acute (Mynor Neville MD R2) Physician Certification 2 Midnight Certification Type: Admission for Inpatient Services Order for Inpatient Services The services are ordered in accordance with Medicare regulations or non- Medicare payer requirements, as applicable. In the case of services not specified as inpatient-only, they are appropriately provided as inpatient services in accordance with the 2-midnight benchmark. Estimated LOS (days): 2 2 days is the estimated time the patient will need to remain in the hospital, assuming treatment plan goals are met and no additional complications. Post-Hospital Plan: Home (Mynor Neville MD R2) Problem Qualifiers (1) HLD (hyperlipidemia): Qualified Code: E78.5 - Hyperlipidemia, unspecified hyperlipidemia type (2) Chest pain: Qualified Code: R07.9 - Chest pain, unspecified type Mynor Neville MD R2 Apr 29, 2016 14:49 Schuyler De La Torre MD Apr 29, 2016 19:58
[2016-04-29] MEDS: WARFARIN SOD 5 MG TAB PO SCH (16:00)
[2016-04-29] MEDS ORDERED: NITROGLYCERIN 2% OINT 1 GM PACKET TOPICAL PRN (16:00)
[2016-04-29] MEDS ORDERED: MORPHINE SULFATE 4 MG/ML INJ IV PUSH PRN (16:00)
[2016-04-29] MEDS ORDERED: oxyCODONE/ACETAMINOPHEN 7.5 MG/325 MG TAB PO PRN ×2 (16:15)
--- NOTE | 2016-04-29 19:58 | HHI.HP ---
[facility] Service Family Medicine Primary Care Physician [facility] Admission Diagnosis congestive heart failure, chest pain rule out ACS Diagnoses: (1) HLD (hyperlipidemia) (2) GERD (gastroesophageal reflux disease) (3) DVT prophylaxis (4) BPH (benign prostatic hypertrophy) (5) Carotid stenosis (6) Chest pain (7) Acute on chronic heart failure International Travel<30 Days: No Contact w/Intl Traveler<30days: No Known Affected Area: No History of Present Illness 89 yo M presenting to the ED with progressive SOB and lower extremity edema for the past 2 weeks. He was sent to the ED by oncology where he was being evaluated for his existing RCC when he was found to be edematous with crackles on pulmonary exam. He describes relatively sudden worsening of his shortness of breath, dyspnea on exertion, lower extremity edema, and a 10 lb weight gain going back 2 weeks. Prior to that he was in his usual state of health. He does endorse some orthopnea, chest pressure with palpitations, and some abdominal fullness. He denies fevers/chills, denies nausea/vomiting, denies diaphoresis. He has a history significant for atrial fibrillation and is anticoagulated on coumadin with his last INR reportedly 3.1. He states he has a mitral valve replacement in 2003 with subsequent endocarditis that was treated with IV abx for >100 days in 2006. He sees cardiology through the [facility], cannot recall who he regularly sees. Review of Systems Constitutional: COMPLAINS OF: Weight gain, DENIES: Diaphoretic episodes, Fever , Dizziness Eyes: DENIES: Blurred vision, Double Vision Ears, nose, mouth, throat: COMPLAINS OF: Tinnitus Respiratory: COMPLAINS OF: Cough, Shortness of breath, DENIES: Wheezing, Sputum production Cardiovascular: COMPLAINS OF: Chest pain, Palpitations, Dyspnea on Exertion, PND, Lower Extremity Edema, Orthopnea, DENIES: Syncope, Claudication Gastrointestinal: COMPLAINS OF: Abdominal pain, DENIES: Bloody stools, Constipation, Diarrhea, Nausea, Vomiting Musculoskeletal: DENIES: Joint pain Past Family Social History Past Medical History Past Medical History Coronary disease Pemphigus Temporal arteritis left side 60% blockage Carotid stenosis Low back pain Chronic systolic heart failure Atrial fibrillation Hypertension Benign prostatic hypertrophy Prior CVA, November 2015 Chronic steroid use Past Surgical History Past Surgical History Mitral valve replacement 2003 Hernia repair Left renal biopsy with cryoablation Left knee replacement Right sided endarectomy Reported Medications Reported Meds & Active Scripts Active Percocet (Oxycodone-Acetaminophen) 5-325 mg Tab 1 Tab PO Q6H PRN Metoprolol Tartrate 25 Mg Tab 25 Mg PO BID Reported Coumadin (Warfarin) 5 Mg Tab 2.5 Mg PO MO Take 1/2 tablet (2.5mg) daily on Thursday Tacrolimus Topical 0.1 % Oint 1 Applic TOPICAL DAILY PRN Multi-Vitamin/Minerals (Multiple Vitamins W/ Minerals) 1 Tab Tab 1 Tab PO DAILY Vitamin D3 (Cholecalciferol) 1,000 Unit Tab 1,000 Units PO DAILY Magnesium Oxide 420 Mg Tab 420 Mg PO BID Ultram (Tramadol HCl) 50 Mg Tab 100 Mg PO Q8HR PRN Tylenol (Acetaminophen) 325 Mg Tab 325 Mg PO Q12HR PRN Proscar (Finasteride) 5 Mg Tab 5 Mg PO DAILY Do not crush. Pravachol (Pravastatin) 20 Mg Tab 20 Mg PO HS Omeprazole 20 Mg Tab 20 Mg PO BID Lisinopril 2.5 Mg Tab 2.5 Mg PO DAILY Hibiclens Topical (Chlorhexidine Gluconate) 4% Liq 1 Applic TOPICAL EVERY OTHER DAY Furosemide 20 Mg Tab 20 Mg PO DAILY Flomax (Tamsulosin HCl) 0.4 Mg Cap 0.4 Mg PO DAILY Coumadin (Warfarin) 5 Mg Tab 5 Mg PO SUTUWETHFRSA Take 1 tablet (5mg) daily on Thursday,Thursday,Thursday,,Thursday and Thursday Colace (Docusate Sodium) 100 Mg Cap 200 Mg PO BID Amitriptyline (Amitriptyline HCl) 10 Mg Tab 10 Mg PO HS Clotrimazole AF Topical (Clotrimazole) 1% Cream 1 Applic TOPICAL BID Allergies: Coded Allergies: Coreg (Verified Allergy, Severe, 04/29/16) Adhesives (Verified Adverse Reaction, Severe, SKIN TEARS, 04/29/16) Hydrocodone (Verified Adverse Reaction, Mild, 04/29/16) REPORTS RED SPOTS ON SKIN AND TINGLING Family History Father with prostate cancer. 2 brothers and sisters in good health. No history of CVA in the family Social History One pack tobacco 25 years. No alcohol or IV drug use. Physical Exam Vital Signs Vital Signs Date Time Temp Pulse Resp B/P Pulse Ox O2 Delivery O2 Flow Rate FiO2 04/29/16 18:37 58 19 177/91 100 Nasal Cannula 2 04/29/16 15:54 98 Nasal Cannula 2.00 04/29/16 15:51 52 19 180/81 100 Nasal Cannula 2 04/29/16 12:37 53 22 157/67 100 Nasal Cannula 04/29/16 11:30 50 26 140/64 100 Nasal Cannula 2 04/29/16 10:38 98.5 59 16 180/80 96 04/29/16 10:35 Room Air Physical Exam GENERAL: This is a well-nourished, well-developed patient, in no apparent distress. SKIN: No rashes, ecchymoses or lesions. Cool and dry. HEAD: Atraumatic. Normocephalic. No temporal or scalp tenderness. EYES: Pupils equal round and reactive. Extraocular motions intact. No scleral icterus. No injection or drainage. ENT: Nose without bleeding, purulent drainage or septal hematoma. Throat without erythema, tonsillar hypertrophy or exudate. Uvula midline. Airway patent. NECK: Trachea midline. No JVD or lymphadenopathy. Supple, nontender, no meningeal signs. CARDIOVASCULAR: Regular rate and rhythm without murmurs, gallops, or rubs. RESPIRATORY: Clear to auscultation. Breath sounds equal bilaterally. No wheezes , rales, or rhonchi. GASTROINTESTINAL: Abdomen soft, non-tender, nondistended. No hepato-splenomegaly , or palpable masses. No guarding. MUSCULOSKELETAL: Extremities without clubbing, cyanosis, or edema. No joint tenderness, effusion, or edema noted. No calf tenderness. Negative Homans sign bilaterally. NEUROLOGICAL: Awake and alert. Cranial nerves II through XII intact. Motor and sensory grossly within normal limits. Five out of 5 muscle strength in all muscle groups. Normal speech. Laboratory Laboratory Tests Test 04/29/16 04/29/16 11:10 17:20 White Blood Count 7.2 Red Blood Count 3.74 Hemoglobin 10.9 Hematocrit 33.4 Mean Corpuscular Volume 89.3 Mean Corpuscular Hemoglobin 29.2 Mean Corpuscular Hemoglobin 32.7 Concent Red Cell Distribution Width 14.9 Platelet Count 164 Mean Platelet Volume 8.6 Neutrophils (%) (Auto) 77.8 Lymphocytes (%) (Auto) 11.8 Monocytes (%) (Auto) 7.6 Eosinophils (%) (Auto) 2.2 Basophils (%) (Auto) 0.6 Neutrophils # (Auto) 5.6 Lymphocytes # (Auto) 0.9 Monocytes # (Auto) 0.5 Eosinophils # (Auto) 0.2 Basophils # (Auto) 0.0 CBC Comment DIFF FINAL Differential Comment Prothrombin Time 38.8 Prothromb Time International 3.3 Ratio Activated Partial 54.7 Thromboplast Time Sodium Level 140 Potassium Level 4.4 Chloride Level 103 Carbon Dioxide Level 30.4 Anion Gap 7 Blood Urea Nitrogen 24 Creatinine 1.34 Estimat Glomerular Filtration 50 Rate Random Glucose 80 Calcium Level 9.1 Magnesium Level 2.3 Total Bilirubin 0.9 Aspartate Amino Transf 17 (AST/SGOT) Alanine Aminotransferase 15 (ALT/SGPT) Alkaline Phosphatase 80 Total Creatine Kinase 62 Troponin I LESS THAN 0.02 LESS THAN 0.02 B-Type Natriuretic Peptide 214 Total Protein 7.1 Albumin 3.6 Thyroid Stimulating Hormone 1.040 3rd Gen Result Diagram: 04/29/16 1110 04/29/16 1110 Imaging Last 72 hours Impressions Chest X-Ray 04/29/16 1106 Signed Impressions: Service Date/Time: Friday, April 29, 2016 11:16 - CONCLUSION: 1. Mild cardiomegaly. 2. No acute focal pulmonary infiltrate or pulmonary vascular congestion. Alexandro Fuller MD Assessment and Plan Assessment and Plan Mr. West is a pleasant 89 y/o male with an extensive PMHx of systolic heart failure, valve replacement, carotid stenosis, HTN, HLP, depression, VIT D deficiency, BPH, and chronic a fib, presenting with worsening SOB x 2 weeks and LE swelling. Given nitro paste in ED, along with Lasix 40 mg IV, and ASA 325. Lab work sign for BNP of 214, CR of 1.34. CXR showed mild cardiomegaly, with no acute consolidations or vascular congestion. Patient diuresed 2.5 L with IV lasix and will be admitted with a presumptive diagnosis of acute on chronic systolic heart failure. Problem List: (1) Acute on chronic heart failure Status: Acute Plan: Acute exacerbation of chronic CHF with dyspnea, lower ext. edema Lasix 40 mg IV x 1 at 11:25, give addition 40 mg at 2300 and start BID. Monitor I&Os. Continue Metoprolol at reduced dose, home doses 25 twice a day, will give 12.5 twice a day. Pt not hypotensive. Nitropaste PRN CP ASA 325 daily Morphine 2 mg q 2 hr PRN CP Echocardiogram given valvular disease and acute worsening CHF Continuous pulse ox, O2 supplementation O2 goal O2 > 92% Trend EKG and Troponin q 6 hours (2) Atrial fibrillation Status: Acute Plan: Rate controlled, continue home Beta zacarias at reduced dose. INR 3.3 - hold warfarin for goal inf of 2-3 (3) Chest pain Status: Acute Plan: Cycle cardiac enzymes Monitor on telemetry (4) HLD (hyperlipidemia) Status: Chronic Plan: Obtain lipid panel Continue home statin management (5) BPH (benign prostatic hypertrophy) Status: Chronic Plan: Continue home tamsulosin and finasteride. (6) GERD (gastroesophageal reflux disease) Status: Chronic Plan: Continue home PPI (7) DVT prophylaxis Status: Acute Physician Certification 2 Midnight Certification Type: Admission for Inpatient Services Order for Inpatient Services The services are ordered in accordance with Medicare regulations or non- Medicare payer requirements, as applicable. In the case of services not specified as inpatient-only, they are appropriately provided as inpatient services in accordance with the 2-midnight benchmark. Estimated LOS (days): 2 2 days is the estimated time the patient will need to remain in the hospital, assuming treatment plan goals are met and no additional complications. Post-Hospital Plan: Not yet determined Problem Qualifiers (1) HLD (hyperlipidemia): Qualified Code: E78.5 - Hyperlipidemia, unspecified hyperlipidemia type (2) Chest pain: Qualified Code: R07.9 - Chest pain, unspecified type Schuyler De La Torre MD Apr 29, 2016 19:58
[2016-04-29] MEDS: MAGNESIUM OXIDE 400 MG TAB PO SCH (20:53)
[2016-04-29] MEDS: DOCUSATE SODIUM 100 MG CAP PO SCH (20:53)
[2016-04-29] MEDS: traMADol HCL 50 MG TAB PO SCH (20:54)
[2016-04-29] MEDS: FUROSEMIDE 40 MG/4 ML VIAL IV PUSH SCH (20:55)
[2016-04-29] MEDS: METOPROLOL TARTRATE 25 MG TAB PO SCH (20:55)
[2016-04-29] MEDS: PANTOPRAZOLE SOD 20 MG DELAYED RELEASE TAB PO SCH (20:55)
[2016-04-29] MEDS: PRAVASTATIN SOD 20 MG TAB PO SCH (20:58)
[2016-04-29] MEDS: CLOTRIMAZOLE 1% CREAM 15 GM TOPICAL SCH (21:00)
[2016-04-29] MEDS: AMITRIPTYLINE HCL 10 MG TAB PO SCH (21:00)
[2016-04-30] VITALS (9 sets, daily range): BP systolic 97–168; BP diastolic 46–88; PULSE 58–105; RESP 18–20; TEMP 97.2–98.7; O2SAT 94–100
[2016-04-30 06:32] LABS: PROTHROMBIN TIME - PATIENT 34.6 SEC (9.8-11.6)
[2016-04-30 06:47] LABS: BICARBONATE 35.3 MEQ/L (21.0-32.0); MAGNESIUM 2.1 MG/DL (1.5-2.5)
[2016-04-30 06:49] LABS: HDL CHOLESTEROL 44.5 MG/DL (40.0-60.0)
[2016-04-30 06:56] LABS: AUTOMATED NEUTROPHIL # 6.2 TH/MM3 (1.8-7.7); BASOPHIL % 0.5 % (0.0-2.0); EOSINOPHIL # 0.2 TH/MM3 (0-0.4); EOSINOPHIL % 2.8 % (0.0-4.0); HEMATOCRIT 32.8 % (39.0-51.0); LYMPH % 14.5 % (9.0-44.0); LYMPHOCYTE # 1.2 TH/MM3 (1.0-4.8); MEAN CELL VOLUME 87.7 FL (80.0-100.0); MEAN CORPUSCULAR HEMOGLOBIN 28.8 PG (27.0-34.0); MEAN CORPUSCULAR HGB CONC 32.9 % (32.0-36.0); NEUT % 73.2 % (16.0-70.0); PLATELET COUNT 148 TH/MM3 (150-450); RED BLOOD COUNT 3.74 MIL/MM3 (4.50-5.90); RED CELL DISTRIBUTION WIDTH 14.7 % (11.6-17.2); WHITE BLOOD COUNT 8.5 TH/MM3 (4.0-11.0)
[2016-04-30 06:57] LABS: HEMO FLAGS AUTO DIFF
[2016-04-30 07:55] LABS: SCAN/DIFF AUTO DIFF CONFIRMED
[2016-04-30] MEDS: SODIUM CHLORIDE 0.9% FLUSH 5 ML FLUSH IVF PRN ×2 (08:57→21:01)
[2016-04-30] MEDS: MULTIVITAMIN HEMATINIC THERAPEUTIC TAB PO SCH (08:58)
[2016-04-30] MEDS: DOCUSATE SODIUM 100 MG CAP PO SCH ×2 (08:58→21:02)
[2016-04-30] MEDS: MAGNESIUM OXIDE 400 MG TAB PO SCH ×2 (08:58→21:03)
[2016-04-30] MEDS: PANTOPRAZOLE SOD 20 MG DELAYED RELEASE TAB PO SCH ×2 (08:59→21:03)
[2016-04-30] MEDS: traMADol HCL 50 MG TAB PO SCH ×3 (08:59→21:02)
[2016-04-30] MEDS: CHOLECALCIFEROL (VIT D3) 1000 UNIT TAB PO SCH (08:59)
[2016-04-30] MEDS ORDERED: TAMSULOSIN HCL 0.4 MG CAP PO SCH (09:00)
[2016-04-30] MEDS ORDERED: FINASTERIDE 5 MG TAB PO SCH (09:00)
[2016-04-30] MEDS ORDERED: LISINOPRIL 5 MG TAB PO SCH (09:00)
[2016-04-30] MEDS: FUROSEMIDE 40 MG/4 ML VIAL IV PUSH SCH ×2 (09:00→21:02)
--- NOTE | 2016-04-30 09:22 | EKG ---
Date Performed: 04/30/2016 Time Performed: 02:12:47 PTAGE: 89 years EKG: SINUS BRADYCARDIA WITH FIRST DEGREE AV BLOCK SEPTAL MYOCARDIAL INFARCTION ABNORMAL ECG PREVIOUS TRACING : 04/29/2016 17.30 DOCTOR: Devyn Johnson Interpretating Date/Time 04/30/2016 09:21:16
--- NOTE | 2016-04-30 10:23 | EKG ---
Date Performed: 04/29/2016 Time Performed: 17:30:49 PTAGE: 89 years EKG: Sinus rhythm WITH FIRST DEGREE AV BLOCK WITH FREQUENT SUPRAVENTRICULAR PREMATURE COMPLEXES MODERATE ST DEPRESSION ABNORMAL ECG PREVIOUS TRACING : 04/29/2016 10.42 DOCTOR: Devyn Johnson Interpretating Date/Time 04/30/2016 10:22:59
[2016-04-30] MEDS: CLOTRIMAZOLE 1% CREAM 15 GM TOPICAL SCH ×2 (11:13→21:01)
[2016-04-30] MEDS: METOPROLOL TARTRATE 25 MG TAB PO SCH ×2 (11:13→21:03)
--- NOTE | 2016-04-30 11:21 | EKG ---
Date Performed: 04/29/2016 Time Performed: 10:42:15 PTAGE: 89 years EKG: ATRIAL FIBRILLATION ABNORMAL RHYTHM ECG PREVIOUS TRACING : 12/07/2015 13.59 DOCTOR: Devyn Johnson Interpretating Date/Time 04/30/2016 11:19:30
--- NOTE | 2016-04-30 11:43 | HHI.FPPN ---
Subjective Remarks Patient says that he did "not do well" last night. He says that he was up frequently using the urinal. Other than this, he is still having some chest tenderness, worse with movement. He denies any chest pressure or pain radiating into his arm or jaw. His breathing is improved since admission, as well as his lower extremity edema and abdominal swelling. He tolerated breakfast well this morning. (Mynor Neville MD R2) Objective Vitals Vital Signs Date Time Temp Pulse Resp B/P Pulse Ox O2 Delivery O2 Flow Rate FiO2 04/30/16 10:57 97.5 105 18 97/46 96 04/30/16 07:41 97.2 58 20 142/63 100 04/30/16 04:00 98.7 68 18 168/88 94 04/30/16 00:00 98.4 78 18 166/74 95 04/29/16 20:00 98.4 87 18 148/78 97 04/29/16 18:37 58 19 177/91 100 Nasal Cannula 2 04/29/16 15:54 98 Nasal Cannula 2.00 04/29/16 15:51 52 19 180/81 100 Nasal Cannula 2 04/29/16 12:37 53 22 157/67 100 Nasal Cannula I/O 04/29/16 04/29/16 04/29/16 04/30/16 04/30/16 04/30/16 07:00 15:00 23:00 07:00 15:00 23:00 Output Total 1200 ml 1350 ml Balance -1200 ml -1350 ml Output Urine Total 1200 ml 1350 ml # Voids 1 2 (Mynor Neville MD R2) Result Diagram: 04/30/16 0520 04/30/16 0520 Imaging Last Impressions Chest X-Ray 04/29/16 1106 Signed Impressions: Service Date/Time: Friday, April 29, 2016 11:16 - CONCLUSION: 1. Mild cardiomegaly. 2. No acute focal pulmonary infiltrate or pulmonary vascular congestion. Alexandro Fuller MD Objective Remarks GENERAL: Comfortable, RR at goal, no accessory muscle use, talking in full sentences. SKIN: multiple stuck on appearing, waxy lesions as well as small papules that are red in color. HEAD: Atraumatic. EYES: Pupils equal round and reactive. Extraocular motions intact. No scleral icterus. No injection or drainage. ENT: Nose without bleeding, purulent drainage or septal hematoma. NECK: JVD ++ CARDIOVASCULAR: Irregular rate, faint heart sounds noted, no obvious murmurs on exam. RESPIRATORY: RALES at bases. GASTROINTESTINAL: TTP at left lower quadrant, slightly distended and tense. hypoactive BSs, no HSM. MUSCULOSKELETAL: 2+ pitting edema to chins. Improved since yesterday. NEUROLOGICAL: Awake and alert. Cranial nerves II through XII intact. Motor and sensory grossly within normal limits. Five out of 5 muscle strength in all muscle groups. Normal speech. (Mnyor Neville MD R2) A/P Assessment and Plan Mr. West is a pleasant 89 y/o male with an extensive PMHx of systolic heart failure, mitral valve replacement, carotid stenosis, HTN, HLP, depression, VIT D deficiency, BPH, and chronic a fib, presenting with worsening SOB x 2 weeks and LE swelling. Given nitro paste in ED, along with Lasix 40 mg IV, and ASA 325. Lab work sign for BNP of 214, CR of 1.34. CXR showed mild cardiomegaly, with no acute consolidations or vascular congestion. Patient diuresed 2.5 L with IV lasix and will be admitted with a presumptive diagnosis of acute on chronic systolic heart failure. Discharge Planning Probable d/c tomorrow 05/01 after Echocardiogram and Improvement of hypervolemia on exam. (Mynor Neville MD R2) Attending Attestation Pt. examined and case discussed with resident physician I have read the above note and agree with the assessment/plan as discussed with me I was involved in all medical decision making for this patient Schuyler De La Torre MD (Schuyler De La Torre MD) Problem List: (1) Acute on chronic heart failure Status: Acute Plan: Acute exacerbation of chronic CHF with dyspnea, lower ext. edema Lasix 40 mg IV BID --> transition to PO on 05/01. Monitor I&Os. Fluid overload on exam improving. No change on serial EKGs and troponins were negative x 3. Weight decreased from 85 kg --> 84.5 kg. 2.5 L output x 24 hours. Continue Metoprolol at reduced dose, home doses 25 twice a day, will give 12.5 twice a day. Nitropaste PRN CP ASA 325 daily Morphine 2 mg q 2 hr PRN CP Echocardiogram given valvular disease and acute worsening CHF Continuous pulse ox, O2 supplementation O2 goal O2 > 92% (2) Atrial fibrillation Status: Acute Plan: Rate controlled, continue home Beta zacarias at reduced dose. INR 3.3 --> 3.0 continue to hold warfarin for goal inf of 2-3 Pharmacy consulted. (3) Chest pain Status: Acute Plan: Cardiac enzymes negative. Monitor on telemetry. (4) HLD (hyperlipidemia) Status: Chronic Plan: Lipids: LDL: 46, HDL 44.5,TG 86. At goal. Continue home statin management (5) BPH (benign prostatic hypertrophy) Status: Chronic Plan: Continue home tamsulosin and finasteride. (6) GERD (gastroesophageal reflux disease) Status: Chronic Plan: Continue home PPI. (7) DVT prophylaxis Status: Acute Plan: Anticoagulated on COumadin therapy, pharm consult for management. Nutrition: Heart healthy Electrolytes: At goal, cont to monitor Fluids: PO as tolerated. Salt restrict to 2,[address] De La Torre, Dr. Mick Crowder, and Dr. Chantal Crowder. (Mynor Neville MD R2) Problem Qualifiers (1) Chest pain: Qualified Code: R07.9 - Chest pain, unspecified type (2) HLD (hyperlipidemia): Qualified Code: E78.5 - Hyperlipidemia, unspecified hyperlipidemia type Mynor Neville MD R2 Apr 30, 2016 11:43 Schuyler De La Torre MD Apr 30, 2016 22:04
[2016-04-30] MEDS ORDERED: PILL SPLITTER OTHER PRN (16:15)
[2016-04-30] MEDS: AMITRIPTYLINE HCL 10 MG TAB PO SCH (21:03)
[2016-04-30] MEDS: PRAVASTATIN SOD 20 MG TAB PO SCH (21:03)
--- NOTE | 2016-04-30 21:03 | EC ---
Study Study Date:04/30/2016 STUDY CONCLUSIONS SUMMARY - Left ventricle: The cavity size was mildly dilated. Wall thickness was normal. Systolic function was normal. The estimated ejection fraction was 55%. Wall motion was normal; there were no regional wall motion abnormalities. - Aortic valve: Trileaflet; moderately thickened, mildly calcified leaflets. - Mitral valve: A bioprosthesis was present. Mild regurgitation. Valve area by pressure half-time: 2.44cm^2. - Left atrium: The atrium was mildly dilated. - Tricuspid valve: Mild regurgitation. - Pulmonary arteries: Systolic pressure was mildly to moderately increased. PA peak pressure: 50mm Hg (S). If LV function is below 40, please consider prescribing an ACEI or ARB or document rationale for non-use. PROCEDURE DATA STUDY STATUS: Elective. Procedure: Transthoracic echocardiography. Image quality was good. Scanning was performed from the parasternal, apical, and subcostal acoustic windows. Study completion: The patient tolerated the procedure well. Transthoracic echocardiography. M-mode, complete 2D, complete spectral Doppler, and color Doppler. Height: Height: 67in. Weight: Weight: 186.6lb. Body mass index: BMI: 29.3kg/m^2. Body surface area: BSA: 1.97m^2. Patient status: Inpatient. CARDIAC ANATOMY LEFT VENTRICLE: The cavity size was mildly dilated. Wall thickness was normal. Systolic function was normal. The estimated ejection fraction was 55%. Wall motion was normal; there were no regional wall motion abnormalities. AORTIC VALVE: Trileaflet; moderately thickened, mildly calcified leaflets. Doppler: Transvalvular velocity was within the normal range. There was no stenosis. No regurgitation. Valve area: 1.54cm^2 (Vmax). Indexed valve area: 0.78cm^2/m^2 (Vmax). Peak gradient: 29mm Hg (S). AORTA: Aortic root: The aortic root was normal in size. MITRAL VALVE: A bioprosthesis was present. Doppler: Transvalvular velocity was within the normal range. There was no evidence for stenosis. Mild regurgitation. Valve area by pressure half-time: 2.44cm^2. Indexed valve area by pressure half-time: 1.24cm^2/m^2. Mean gradient: 5mm Hg (D). Peak gradient: 12mm Hg (D). LEFT ATRIUM: The atrium was mildly dilated. RIGHT VENTRICLE: The cavity size was normal. Wall thickness was normal. PULMONIC VALVE: Doppler: Transvalvular velocity was within the normal range. There was no evidence for stenosis. No regurgitation. Peak gradient: 13mm Hg (S). TRICUSPID VALVE: Structurally normal valve. Doppler: Transvalvular velocity was within the normal range. Mild regurgitation. PULMONARY ARTERY: The main pulmonary artery was normal-sized. Systolic pressure was mildly to moderately increased. RIGHT ATRIUM: The atrium was normal in size. PERICARDIUM: There was no pericardial effusion. SYSTEMIC VEINS: Inferior vena cava: The vessel was normal in size. Patient weight: 186.6lb _Ejection fraction:_ 65-75% _Fractional shortening:_ 32% up to 5Kg 5-11.5Kg 11.6-22.9Kg 23-45Kg 45-57Kg Aortic Root 7-13 <17 13-22 17-27 17-27 LA diam 6-13 <23 24-38 33-47 37-40 RVID 10-17 7-15 7-15 7-18 8-17 LVIDd 12-22 <32 24-38 33-47 37-40 LVPW 2-4 3-6 5-7 6-8 7-8 IVS 2-4 3-6 5-7 6-8 7-8 BASIC MEASUREMENTS ADULT NORMAL Left ventricle LV internal dimension, ED, chordal *58.6 mm 43-52 level, PLAX LV internal dimension, ES, chordal *44 mm 23-38 level, PLAX Fractional shortening, chordal level, *25 % >29 PLAX LV posterior wall thickness, ED 9.65 mm IVS/LVPW ratio, ED 1 <1.3 Ventricular septum Septal thickness, ED 9.65 mm Aortic valve Leaflet separation 16 mm 15-26 BASIC MEASUREMENTS ADULT NORMAL Aortic valve Leaflet separation 16 mm 15-26 Aorta Root diameter, ED 26 mm 20-37 Left atrium Anterior-posterior dimension, ES *43 mm 19-40 Anterior-posterior dimension index, ES 2.18 cm/m^2 <2.2 LA/aortic root ratio 1.65 DOPPLER MEASUREMENTS ADULT NORMAL Main pulmonary artery Pressure, S *50 mm Hg =30 Aortic valve Peak velocity, S 267 cm/s VTI, S 59.8 cm Peak gradient, S 29 mm Hg Valve area, Vmax 1.54 cm^2 Valve area index, Vmax 0.78 cm^2/m^2 Mitral valve Peak E-wave velocity 168 cm/s Peak A-wave velocity 116 cm/s Mean velocity, D 108 cm/s Deceleration time *261 ms 150-230 Pressure half-time 90 ms Mean gradient, D 5 mm Hg Peak gradient, D 12 mm Hg Peak E/A ratio 1.4 Valve area, pressure half-time 2.44 cm^2 Valve area index, pressure half-time 1.24 cm^2/m^2 Maximal regurgitant velocity 320 cm/s Tricuspid valve Regurgitant peak velocity 288 cm/s Peak RV-RA gradient, S 33 mm Hg Maximal regurgitant velocity 288 cm/s Systemic veins Estimated CVP 10 mm Hg Right ventricle RV pressure, S *50 mm Hg <30 Pulmonic valve Peak velocity, S 182 cm/s Peak gradient, S 13 mm Hg LEGEND: Mean values are shown as u=mean value. Asterisk (*) pham values outside specified normal range. Prepared and signed by Kristan Abebe [id number]
[2016-05-01] VITALS (8 sets, daily range): BP systolic 92–111; BP diastolic 56–74; PULSE 68–122; RESP 18–20; TEMP 98–98.7; O2SAT 93–98
--- NOTE | 2016-05-01 06:59 | HHI.FPPN ---
Subjective Remarks Patient denies SOB, but has not gotten OOB. Still reports chest pain when taking a deep breath and palpation. Also complaining of lower abdominal pain and loose stools x 1 day. ECHO showed EF 55% with elevated PA peak pressures. Tolerating full diet and has michel in place, with some BRB in bag. Patient has 2 of his pills sitting on his chest. (Mynor Neville MD R2) Objective Vitals Vital Signs Date Time Temp Pulse Resp B/P Pulse Ox O2 Delivery O2 Flow Rate FiO2 05/01/16 04:02 98.7 68 18 92/61 97 05/01/16 00:00 122 05/01/16 00:00 98.0 68 18 111/67 97 04/30/16 23:36 98.7 68 18 129/79 95 04/30/16 20:20 98.4 87 18 114/61 97 04/30/16 16:05 98.0 61 18 107/55 95 04/30/16 10:57 97.5 105 18 97/46 96 04/30/16 07:41 97.2 58 20 142/63 100 (Mynor Neville MD R2) Result Diagram: 04/30/16 0520 04/30/16 0520 Imaging Last Impressions Chest X-Ray 04/29/16 1106 Signed Impressions: Service Date/Time: Friday, April 29, 2016 11:16 - CONCLUSION: 1. Mild cardiomegaly. 2. No acute focal pulmonary infiltrate or pulmonary vascular congestion. Alexandro Fuller MD Objective Remarks GENERAL: Comfortable, RR at goal, no accessory muscle use, talking in full sentences. SKIN: multiple stuck on appearing, waxy lesions as well as small papules that are red in color. HEAD: Atraumatic. EYES: Pupils equal round and reactive. Extraocular motions intact. No scleral icterus. No injection or drainage. ENT: Nose without bleeding, purulent drainage or septal hematoma. NECK: JVD ++ CARDIOVASCULAR: Irregular rate, faint heart sounds noted, no obvious murmurs on exam. RESPIRATORY: RALES at bases. GASTROINTESTINAL: TTP at left lower quadrant, slightly distended and tense. hypoactive BSs, no HSM. MUSCULOSKELETAL: 2+ pitting edema to chins. Improved since yesterday. NEUROLOGICAL: Awake and alert. Cranial nerves II through XII intact. Motor and sensory grossly within normal limits. Five out of 5 muscle strength in all muscle groups. Normal speech. (Mynor Neville MD R2) A/P Assessment and Plan Mr. West is a pleasant 89 y/o male with an extensive PMHx of systolic heart failure, mitral valve replacement, carotid stenosis, HTN, HLP, depression, VIT D deficiency, BPH, and chronic a fib, presenting with worsening SOB x 2 weeks and LE swelling. Given nitro paste in ED, along with Lasix 40 mg IV, and ASA 325. Lab work sign for BNP of 214, CR of 1.34. CXR showed mild cardiomegaly, with no acute consolidations or vascular congestion. Patient diuresed 2.5 L with IV lasix and will be admitted with a presumptive diagnosis of acute on chronic systolic heart failure. Discharge Planning Probable d/c today 05/01 after Echocardiogram and Improvement of hypervolemia on exam. Awaiting PT eval. (Mynor Neville MD R2) Attending Attestation Pt. examined and case discussed with resident physician I have read the above note and agree with the assessment/plan as discussed with me I was involved in all medical decision making for this patient Schuyler De La Torre MD (Schuyler De La Torre MD) Problem List: (1) Acute on chronic heart failure Status: Acute Plan: Acute exacerbation of chronic CHF with dyspnea, lower ext. edema Lasix 40 mg IV BID --> transition to PO on 05/01. Monitor I&Os. Fluid overload on exam improving. No change on serial EKGs and troponins were negative x 3. Weight decreased from 85 kg --> 84.5 kg. 2.5 L output x 24 hours. Continue Metoprolol at reduced dose, home doses 25 twice a day, will give 12.5 twice a day. Nitropaste PRN CP ASA 325 daily Morphine 2 mg q 2 hr PRN CP Echocardiogram showed EF 55%, prosthetic MV, and mild Tricuspid regurg. Continuous pulse ox, O2 supplementation O2 goal O2 > 92% (2) Atrial fibrillation Status: Acute Plan: Rate controlled, continue home Beta zacarias at reduced dose. INR 3.3 --> 2.1 continue to hold warfarin for goal inf of 2-3. Pharmacy consulted 05/01. Started ASA 325 daily for Cardioprotection. (3) Chest pain Status: Acute Plan: Cardiac enzymes negative. Monitor on telemetry. (4) HLD (hyperlipidemia) Status: Chronic Plan: Lipids: LDL: 46, HDL 44.5,TG 86. At goal. Continue home statin management (5) BPH (benign prostatic hypertrophy) Status: Chronic Plan: Continue home tamsulosin and finasteride. (6) GERD (gastroesophageal reflux disease) Status: Chronic Plan: Continue home PPI. (7) DVT prophylaxis Status: Acute Plan: Anticoagulated on Coumadin therapy, pharm consult for management. Nutrition: Heart healthy Electrolytes: At goal, cont to monitor Fluids: PO as tolerated. Salt restrict to 2,[address] De La Torre. Probable d/c today 05/01 after assessment by PT and recommendations. (Mynor Neville MD R2) Problem Qualifiers (1) Chest pain: Qualified Code: R07.9 - Chest pain, unspecified type (2) HLD (hyperlipidemia): Qualified Code: E78.5 - Hyperlipidemia, unspecified hyperlipidemia type Mynor Neville MD R2 May 01, 2016 06:59 Schuyler De La Torre MD May 01, 2016 20:38
[2016-05-01] MEDS ORDERED: FURO40TA PO (07:05)
[2016-05-01] MEDS ORDERED: POTA10CA PO (07:05)
--- NOTE | 2016-05-01 07:06 | HHI.DCPOC ---
Discharge Care Plan Diagnosis: (1) Afib (2) Hypertension (3) Constipation (4) BPH (benign prostatic hypertrophy) (5) GERD (gastroesophageal reflux disease) (6) Chest pain (7) HLD (hyperlipidemia) (8) DVT prophylaxis (9) Atrial fibrillation (10) CHF (congestive heart failure) Goals to Promote Your Health * To prevent worsening of your condition and complications * To maintain your health at the optimal level Directions to Meet Your Goals Take your medications as prescribed Follow your dietary instruction Follow activity as directed Keep your appointments as scheduled Take your immunizations and boosters as scheduled If your symptoms worsen call your PCP, if no PCP go to Urgent Care Center or Emergency Room Smoking is Dangerous to Your Health. Avoid second hand smoke Call the 24-hour hour crisis hotline for domestic abuse at Mynor Neville MD R2 May 01, 2016 07:06
[2016-05-01 08:01] LABS: AUTOMATED NEUTROPHIL # 4.9 TH/MM3 (1.8-7.7); BASOPHIL # 0.1 TH/MM3 (0-0.2); BASOPHIL % 0.7 % (0.0-2.0); EOSINOPHIL # 0.2 TH/MM3 (0-0.4); EOSINOPHIL % 2.5 % (0.0-4.0); HEMO FLAGS DIFF FINAL; LYMPH % 20.8 % (9.0-44.0); LYMPHOCYTE # 1.5 TH/MM3 (1.0-4.8); MEAN CELL VOLUME 87.8 FL (80.0-100.0); MEAN CORPUSCULAR HEMOGLOBIN 28.5 PG (27.0-34.0); MEAN CORPUSCULAR HGB CONC 32.5 % (32.0-36.0); MONO % 8.1 % (0.0-8.0); NEUT % 67.9 % (16.0-70.0); PLATELET COUNT 182 TH/MM3 (150-450); RED BLOOD COUNT 3.88 MIL/MM3 (4.50-5.90); RED CELL DISTRIBUTION WIDTH 14.5 % (11.6-17.2); WHITE BLOOD COUNT 7.3 TH/MM3 (4.0-11.0)
[2016-05-01 08:09] LABS: INTERNATIONAL NORMALIZED RATIO 2.1 RATIO; PROTHROMBIN TIME - PATIENT 23.4 SEC (9.8-11.6)
[2016-05-01 08:19] LABS: BICARBONATE 34.9 MEQ/L (21.0-32.0); POTASSIUM 3.5 MEQ/L (3.5-5.1)
[2016-05-01] MEDS: LISINOPRIL 5 MG TAB PO SCH (08:28)
[2016-05-01] MEDS: METOPROLOL TARTRATE 25 MG TAB PO SCH ×2 (08:28→20:54)
[2016-05-01] MEDS: MULTIVITAMIN HEMATINIC THERAPEUTIC TAB PO SCH (08:28)
[2016-05-01] MEDS: TAMSULOSIN HCL 0.4 MG CAP PO SCH (08:28)
[2016-05-01] MEDS: DOCUSATE SODIUM 100 MG CAP PO SCH ×2 (08:28→20:54)
[2016-05-01] MEDS: MAGNESIUM OXIDE 400 MG TAB PO SCH ×2 (08:29→20:54)
[2016-05-01] MEDS: FUROSEMIDE 40 MG TAB PO SCH ×2 (08:29→18:16)
[2016-05-01] MEDS: CHOLECALCIFEROL (VIT D3) 1000 UNIT TAB PO SCH (08:29)
[2016-05-01] MEDS: PANTOPRAZOLE SOD 20 MG DELAYED RELEASE TAB PO SCH ×2 (08:29→20:54)
[2016-05-01] MEDS: traMADol HCL 50 MG TAB PO SCH ×3 (08:31→18:16)
[2016-05-01] MEDS: CLOTRIMAZOLE 1% CREAM 15 GM TOPICAL SCH ×2 (08:32→20:55)
[2016-05-01] MEDS: WARFARIN SOD 5 MG TAB PO SCH ×2 (16:00→18:15)
[2016-05-01] MEDS: PRAVASTATIN SOD 20 MG TAB PO SCH (20:54)
[2016-05-01] MEDS: FINASTERIDE 5 MG TAB PO SCH (20:54)
[2016-05-01] MEDS: AMITRIPTYLINE HCL 10 MG TAB PO SCH (20:54)
[2016-05-02] VITALS (9 sets, daily range): BP systolic 101–136; BP diastolic 60–67; PULSE 58–98; RESP 18–20; TEMP 97.5–98.2; O2SAT 94–97
[2016-05-02 08:02] LABS: AUTOMATED NEUTROPHIL # 4.5 TH/MM3 (1.8-7.7); BASOPHIL % 0.5 % (0.0-2.0); EOSINOPHIL # 0.3 TH/MM3 (0-0.4); HEMATOCRIT 36.3 % (39.0-51.0); HEMO FLAGS DIFF FINAL; LYMPHOCYTE # 1.3 TH/MM3 (1.0-4.8); MEAN CORPUSCULAR HEMOGLOBIN 29.4 PG (27.0-34.0); MEAN CORPUSCULAR HGB CONC 33.4 % (32.0-36.0); MONO % 8.8 % (0.0-8.0); NEUT % 66.7 % (16.0-70.0); PLATELET COUNT 194 TH/MM3 (150-450); RED BLOOD COUNT 4.12 MIL/MM3 (4.50-5.90); RED CELL DISTRIBUTION WIDTH 14.4 % (11.6-17.2); WHITE BLOOD COUNT 6.8 TH/MM3 (4.0-11.0)
[2016-05-02 08:17] LABS: INTERNATIONAL NORMALIZED RATIO 1.4 RATIO; PROTHROMBIN TIME - PATIENT 15.7 SEC (9.8-11.6)
[2016-05-02 08:18] LABS: POTASSIUM 3.6 MEQ/L (3.5-5.1)
[2016-05-02] MEDS: DOCUSATE SODIUM 100 MG CAP PO SCH ×2 (08:30→22:13)
[2016-05-02] MEDS: PANTOPRAZOLE SOD 20 MG DELAYED RELEASE TAB PO SCH ×2 (08:31→22:13)
[2016-05-02] MEDS: FUROSEMIDE 40 MG TAB PO SCH ×2 (08:31→18:17)
[2016-05-02] MEDS: LISINOPRIL 5 MG TAB PO SCH (08:31)
[2016-05-02] MEDS: MAGNESIUM OXIDE 400 MG TAB PO SCH ×2 (08:31→22:13)
[2016-05-02] MEDS: MULTIVITAMIN HEMATINIC THERAPEUTIC TAB PO SCH (08:31)
[2016-05-02] MEDS: METOPROLOL TARTRATE 25 MG TAB PO SCH ×2 (08:31→22:14)
[2016-05-02] MEDS: TAMSULOSIN HCL 0.4 MG CAP PO SCH (08:31)
[2016-05-02] MEDS: CHOLECALCIFEROL (VIT D3) 1000 UNIT TAB PO SCH (08:31)
[2016-05-02] MEDS: CLOTRIMAZOLE 1% CREAM 15 GM TOPICAL SCH ×2 (08:32→22:14)
[2016-05-02] MEDS: traMADol HCL 50 MG TAB PO SCH ×3 (08:32→18:18)
--- NOTE | 2016-05-02 09:21 | HHI.FPPN ---
Subjective Remarks Patient was seen and examined this morning. He states that he feels well and is waiting for breakfast to arrive. He denies fevers, chills, nausea, vomiting, shortness of breath (on NC), chest pain. He notes his feet hurt some. He has been working with PT daily and was given exercises to do on his own. He was made aware that his discharge will be pending three midnights under inpatient status with discharge to rehab thereafter in clinically stable. (Chantal Crowder MD R1) Objective Vitals Vital Signs Date Time Temp Pulse Resp B/P Pulse Ox O2 Delivery O2 Flow Rate FiO2 05/02/16 07:18 97.5 86 18 111/65 96 05/02/16 03:12 98.1 94 18 105/65 96 05/01/16 23:08 98.1 93 19 108/69 96 05/01/16 20:00 98 2.00 05/01/16 19:17 16 05/01/16 19:16 98.0 115 19 94/74 95 05/01/16 15:35 98.0 104 20 103/63 93 05/01/16 13:00 98.0 96 20 108/56 96 I/O 05/01/16 05/01/16 05/01/16 05/02/16 05/02/16 05/02/16 07:00 15:00 23:00 07:00 15:00 23:00 Intake Total 960 ml Output Total 875 ml 1950 ml Balance 85 ml -1950 ml Intake Oral 960 ml Output Urine Total 875 ml 1950 ml (Chantal Crowder MD R1) Result Diagram: 05/02/16 0600 05/02/16 0630 Imaging Last Impressions Chest X-Ray 04/29/16 1106 Signed Impressions: Service Date/Time: Friday, April 29, 2016 11:16 - CONCLUSION: 1. Mild cardiomegaly. 2. No acute focal pulmonary infiltrate or pulmonary vascular congestion. Alexandro Fuller MD Objective Remarks GENERAL: Comfortable, RR approx 18, on NC 2L. No accessory muscle use, talking in full sentences. SKIN: Multiple stuck on appearing, waxy lesions as well as small papules that are red in color. HEAD: Atraumatic. EYES: Pupils equal round and reactive. Extraocular motions intact. No scleral icterus. No injection or drainage. ENT: Nose without bleeding, purulent drainage or septal hematoma. CARDIOVASCULAR: +JVD. Irregular rate, tele showing 100s-110s rate, faint heart sounds noted, no obvious murmurs on exam. RESPIRATORY: Faint RALES at bases, improved, mild inspiratory wheezing/upper airway sounds noted. GASTROINTESTINAL: TTP at left lower quadrant, slightly distended. Hypoactive BSs , no HSM. MUSCULOSKELETAL: 1+ pitting edema to ankles today, improved since last exam. NEUROLOGICAL: Awake and alert. Cranial nerves II through XII intact. Motor and sensory grossly within normal limits. Normal speech. Medications and IVs Inpatient Medications Amitriptyline HCl (Elavil) 10 mg HS PO Last administered on 05/01/16 20:54; Start 04/29/16 at 21:00 Aspirin (Aspirin Chew) 162 mg ONCE ONCE CHEW Last administered on 04/29/16 11 :25; Start 04/29/16 at 11:15; Stop 04/29/16 at 11:16; Status DC Cholecalciferol (Vitamin D3) 1,000 units DAILY PO Last administered on 08:31; Start 04/30/16 at 09:00 Clotrimazole (Lotrimin 1% Cream) 1 applic BID TOPICAL Last administered on 05/02 08:32; Start 04/29/16 at 21:00 Docusate Sodium (Colace) 200 mg BID PO Last administered on 05/02/16 08:30; Start 04/29/16 at 21:00 Finasteride (Proscar) 5 mg HS PO Last administered on 05/01/16 20:54; Start at 21:00 Furosemide (Lasix Inj) 40 mg BID IV PUSH Last administered on 04/30/16 21:02; Start 04/29/16 at 21:00; Stop 05/01/16 at 07:07; Status DC Furosemide 40 mg 40 mg BID@,18 PO Last administered on 05/02/16 08:31; Start 05/01/16 at 09:00 IV Flush (NS Flush) 2 ml UNSCH PRN IVF FLUSH AFTER USING IV ACCESS Last administered on 04/30/16 21:01; Start 04/29/16 at 11:15 Lisinopril (Prinivil) 2.5 mg DAILY PO Last administered on 05/02/16 08:31; Start 05/01/16 at 09:00 Magnesium Oxide (Mag-Ox) 400 mg BID PO Last administered on 05/02/16 08:31; Start 04/29/16 at 21:00 Metoprolol Tartrate (Lopressor) 12.5 mg Q12HR PO Last administered on 08:31; Start 04/29/16 at 21:00 Miscellaneous (Pill Splitter) 1 ea UNSCH PRN OTHER SEE LABEL COMMENTS; Start at 16:15 Morphine Sulfate (Morphine Inj) 2 mg Q4H PRN IV PUSH CHEST PAIN; Start at 16:00 Multivitamin Hematinic Therapeutic (Theragran Hematinic) 1 tab DAILY PO Last administered on 05/02/16 08:31; Start 04/30/16 at 09:00 Nitroglycerin (Nitroglycerin 2% Oint) 0.5 inch Q6H PRN TOPICAL CHEST PAIN; Start 04/29/16 at 16:00 Oxycodone/ Acetaminophen (Percocet 7.5-325 Mg) 2 tab Q4H PRN PO PAIN SCALE 6 TO 10; Start 04/29/16 at 16:15 Pantoprazole Sodium (Protonix) 20 mg BID PO Last administered on 05/02/16 08: 31; Start 04/29/16 at 21:00 Patient Medication Teaching (Coumadin Booklet) 1 ONCE ONCE XX Last administered on 05/01/16 18:16; Start 05/01/16 at 16:00; Stop 05/01/16 at 16:01 ; Status DC Pharmacy Profile Note (Coumadin Consult Pharmacy) 0 ml @ 0 mls/hr UNSCH OTHER ; Start 05/01/16 at 09:30 Pravastatin Sodium (Pravachol) 20 mg HS PO Last administered on 05/01/16 20:54 ; Start 04/29/16 at 21:00 Tamsulosin HCl (Flomax) 0.4 mg DAILY PO Last administered on 05/02/16 08:31; Start 05/01/16 at 09:00 Tramadol HCl (Ultram) 100 mg TID PO Last administered on 05/02/16 08:32; Start 04/29/16 at 18:00 Warfarin Sodium (Coumadin) 2.5 mg Mo@16 PO ; Start 05/05/16 at 16:00 (Chantal Crowder MD R1) Urinary Catheter: Yes Assessment to: Continue Parry insert reason: Measure Accurate Output Date of Insertion: Apr 30, 2016 (Chantal Crowder MD R1) Vascular Central Line Catheter: No (Chantal Crowder MD R1) A/P Assessment and Plan Mr. West is a pleasant 89 y/o male with an extensive PMHx of systolic heart failure, mitral valve replacement, carotid stenosis, HTN, HLP, depression, VIT D deficiency, BPH, and chronic a fib, presenting with worsening SOB x 2 weeks and LE swelling. Given nitro paste in ED, along with Lasix 40 mg IV, and ASA 325. Lab work on admission 04/29 significant for BNP of 214, creatinine of 1.34. CXR showed mild cardiomegaly, with no acute consolidations or vascular congestion. Pharmacological diuresis was initiated with IV Lasix. Patient was admitted under observation initially for working diagnosis of acute on chronic systolic heart failure. Discharge Planning He was admitted under observation status on 04/29, switched to inpatient status on 05/01. Probable d/c on 05/04 to SNF after three-midnight stay as inpatient given PT recommends rehabilitation. (Chantal Crowder MD R1) Attending Attestation Patient examined and case discussed with resident physician I have read the above note and agree with the assessment/plan as discussed with the I was involved in all medical decision making for this patient Schuyler De La Torre M.D. (Schuyler De La Torre MD) Problem List: (1) Acute on chronic heart failure Status: Acute Plan: Acute exacerbation of chronic CHF with dyspnea and lower extremity edema. His symptoms are improved and he is clinically stable at this time. Hospital course: Lasix 40 mg IV BID --> transitioned to PO on 05/01. Monitor I&Os. Fluid overload noted on initial exam improving. No change on serial EKGs and cardiac enzymes were negative x 3. Daily weights, weight has improved 2.8 L urine output over last 24 hours. Continue Metoprolol at reduced dose, home dose = 25 twice a day, will give 12.5 twice a day. Nitropaste PRN chest pain ASA 325 daily Morphine 2 mg q 2 hr PRN chest pain Echocardiogram 04/29 showed EF 55%, prosthetic MV, and mild Tricuspid regurg. Continuous pulse ox, O2 supplementation O2 goal O2 > 92%, currently on 2 L nasal cannula (2) Atrial fibrillation Status: Chronic Plan: Rate controlled, continue beta zacarias as above INR 3.3 (04/29, supratherapeutic) -->--> 1.4 (05/02, subtherapeutic). Warfarin restarted 05/01. Monitor INR, goal of 2-3. Pharmacy consulted 05/01, currently on 2.5 mg daily. ASA 325 daily for Cardioprotection. (3) Chest pain Status: Resolved Plan: Currently asymptomatic. Cardiac enzymes negative. Monitor on telemetry- showing afib, rate low 100s (4) HLD (hyperlipidemia) Status: Chronic Plan: Lipids: LDL: 46, HDL 44.5,TG 86. At goal. Continue home statin management (pravastatin 20mg PO hs) (5) BPH (benign prostatic hypertrophy) Status: Chronic Plan: Continue home dose tamsulosin (0.4 mg PO daily) and finasteride (5 mg PO hs). (6) GERD (gastroesophageal reflux disease) Status: Chronic Plan: Continue home dose Protonix (20 mg PO daily) (7) Fluids/Electrolytes/Nutrition/Prophylaxis Status: Acute Plan: Fluids: PO as tolerated. Salt restrict to 2,000 mg. Electrolytes: At goal, monitor while inpatient Nutrition: Heart healthy Anticoagulated on Coumadin therapy, pharm consult for management. wdw Dr. De La Torre. (Chantal Crowder MD R1) Problem Qualifiers (1) Chest pain: Qualified Code: R07.9 - Chest pain, unspecified type (2) HLD (hyperlipidemia): Qualified Code: E78.5 - Hyperlipidemia, unspecified hyperlipidemia type Chantal Crowder MD R1 May 02, 2016 09:20 Schuyler De La Torre MD May 02, 2016 16:35
[2016-05-02] MEDS: WARFARIN SOD 5 MG TAB PO SCH (18:17)
[2016-05-02] MEDS: FINASTERIDE 5 MG TAB PO SCH (22:13)
[2016-05-02] MEDS: PRAVASTATIN SOD 20 MG TAB PO SCH (22:14)
[2016-05-02] MEDS: AMITRIPTYLINE HCL 10 MG TAB PO SCH (22:14)
[2016-05-03] VITALS (7 sets, daily range): BP systolic 94–121; BP diastolic 57–81; PULSE 75–114; RESP 16–20; TEMP 95.7–98.2; O2SAT 95–98
[2016-05-03 05:59] LABS: BASOPHIL % 0.7 % (0.0-2.0); EOSINOPHIL # 0.5 TH/MM3 (0-0.4); HEMATOCRIT 35.7 % (39.0-51.0); HEMO FLAGS DIFF FINAL; LYMPH % 20.3 % (9.0-44.0); LYMPHOCYTE # 1.3 TH/MM3 (1.0-4.8); MEAN CELL VOLUME 87.6 FL (80.0-100.0); MEAN CORPUSCULAR HGB CONC 33.1 % (32.0-36.0); MONO % 10.3 % (0.0-8.0); NEUT % 61.7 % (16.0-70.0); PLATELET COUNT 197 TH/MM3 (150-450); RED BLOOD COUNT 4.07 MIL/MM3 (4.50-5.90); RED CELL DISTRIBUTION WIDTH 14.5 % (11.6-17.2); WHITE BLOOD COUNT 6.5 TH/MM3 (4.0-11.0)
[2016-05-03 06:08] LABS: INTERNATIONAL NORMALIZED RATIO 1.4 RATIO; PROTHROMBIN TIME - PATIENT 15.7 SEC (9.8-11.6)
[2016-05-03 06:24] LABS: BICARBONATE 35.6 MEQ/L (21.0-32.0); POTASSIUM 3.7 MEQ/L (3.5-5.1)
[2016-05-03] MEDS: CHOLECALCIFEROL (VIT D3) 1000 UNIT TAB PO SCH (08:24)
[2016-05-03] MEDS: MAGNESIUM OXIDE 400 MG TAB PO SCH ×2 (08:24→21:10)
[2016-05-03] MEDS: traMADol HCL 50 MG TAB PO SCH ×3 (08:24→17:41)
[2016-05-03] MEDS: DOCUSATE SODIUM 100 MG CAP PO SCH ×2 (08:24→21:00)
[2016-05-03] MEDS: PANTOPRAZOLE SOD 20 MG DELAYED RELEASE TAB PO SCH ×2 (08:24→21:11)
[2016-05-03] MEDS: TAMSULOSIN HCL 0.4 MG CAP PO SCH (08:24)
[2016-05-03] MEDS: METOPROLOL TARTRATE 25 MG TAB PO SCH ×2 (08:25→21:11)
[2016-05-03] MEDS: MULTIVITAMIN HEMATINIC THERAPEUTIC TAB PO SCH (08:25)
[2016-05-03] MEDS: FUROSEMIDE 40 MG TAB PO SCH ×2 (08:25→09:00)
--- NOTE | 2016-05-03 08:39 | HHI.FPPN ---
Subjective Remarks Patient is feeling well. Reports getting better sleep last night. He thinks having the michel is making him less worried overnight. He denies CP or SOB. He is off supp O2 and breathing comfortably. He is complaining of some lower back pain. Objective Vitals Vital Signs Date Time Temp Pulse Resp B/P Pulse Ox O2 Delivery O2 Flow Rate FiO2 05/03/16 07:15 95.7 104 20 103/69 98 05/03/16 04:26 98.1 75 19 110/60 95 05/02/16 23:22 98.0 76 19 104/60 95 05/02/16 21:56 95 Nasal Cannula 2.00 05/02/16 20:18 98.2 89 19 136/63 95 05/02/16 20:00 98 05/02/16 15:25 97.5 58 19 113/67 97 05/02/16 11:21 97.6 82 20 101/62 94 05/02/16 10:18 97 Nasal Cannula 2.00 I/O 05/02/16 05/02/16 05/02/16 05/03/16 05/03/16 05/03/16 07:00 15:00 23:00 07:00 15:00 23:00 Intake Total 1600 ml Output Total 1950 ml 1850 ml 750 ml Balance -1950 ml -250 ml -750 ml Intake Oral 1600 ml Output Urine Total 1950 ml 1850 ml 750 ml Result Diagram: 05/03/16 0545 05/03/16 0545 Objective Remarks GENERAL: Comfortable, RR approx 18, on NC 2L. No accessory muscle use, talking in full sentences. SKIN: Multiple stuck on appearing, waxy lesions as well as small papules that are red in color. HEAD: Atraumatic. EYES: Pupils equal round and reactive. Extraocular motions intact. No scleral icterus. No injection or drainage. ENT: Nose without bleeding, purulent drainage or septal hematoma. CARDIOVASCULAR: +JVD. Irregular rate, tele showing 100s-110s rate, faint heart sounds noted, no obvious murmurs on exam. RESPIRATORY: Faint RALES at bases, improved, mild inspiratory wheezing/upper airway sounds noted. GASTROINTESTINAL: TTP at left lower quadrant, slightly distended. Hypoactive BSs , no HSM. MUSCULOSKELETAL: 1+ pitting edema to ankles today, improved since last exam. NEUROLOGICAL: Awake and alert. Cranial nerves II through XII intact. Motor and sensory grossly within normal limits. Normal speech. Date of Insertion: Apr 30, 2016 A/P Assessment and Plan Mr. West is a pleasant 89 y/o male with an extensive PMHx of systolic heart failure, mitral valve replacement, carotid stenosis, HTN, HLP, depression, VIT D deficiency, BPH, and chronic a fib, presenting with worsening SOB x 2 weeks and LE swelling. Given nitro paste in ED, along with Lasix 40 mg IV, and ASA 325. Lab work on admission 04/29 significant for BNP of 214, creatinine of 1.34. CXR showed mild cardiomegaly, with no acute consolidations or vascular congestion. Pharmacological diuresis was initiated with IV Lasix. Patient was admitted under observation initially for working diagnosis of acute on chronic systolic heart failure. Discharge Planning He was admitted under observation status on 04/29, switched to inpatient status on 05/01. Probable d/c on 05/04 to SNF after three-midnight stay as inpatient given PT recommends rehabilitation. Problem List: (1) Acute on chronic heart failure Status: Acute Plan: Acute exacerbation of chronic CHF with dyspnea and lower extremity edema. His symptoms are improved and he is clinically stable at this time. Hospital course: Lasix 40 mg IV BID --> transitioned to PO on 05/01. Monitor I&Os. Fluid overload noted on initial exam improving. No change on serial EKGs and cardiac enzymes were negative x 3. Daily weights, weight has improved. 2.8 L urine output over last 24 hours. Continue Metoprolol at reduced dose, home dose = 25 twice a day, will give 12.5 twice a day. Nitropaste PRN chest pain ASA 325 daily Morphine 2 mg q 2 hr PRN chest pain Echocardiogram 04/29 showed EF 55%, prosthetic MV, and mild Tricuspid regurg. Continuous pulse ox, O2 supplementation O2 goal O2 > 92%, currently on 2 L nasal cannula (2) Atrial fibrillation Status: Chronic Plan: Rate controlled, continue beta zacarias as above INR 3.3 (04/29, supratherapeutic) -->--> 1.4 (05/02, subtherapeutic). Warfarin restarted 05/01. Monitor INR, goal of 2-3. Pharmacy consulted 05/01, currently on 2.5 mg daily. ASA 325 daily for Cardioprotection. (3) Chest pain Status: Resolved Plan: Currently asymptomatic. Cardiac enzymes negative. Monitor on telemetry- showing afib, rate low 100s (4) HLD (hyperlipidemia) Status: Chronic Plan: Lipids: LDL: 46, HDL 44.5,TG 86. At goal. Continue home statin management (pravastatin 20mg PO hs) (5) BPH (benign prostatic hypertrophy) Status: Chronic Plan: Continue home dose tamsulosin (0.4 mg PO daily) and finasteride (5 mg PO hs). (6) GERD (gastroesophageal reflux disease) Status: Chronic Plan: Continue home dose Protonix (20 mg PO daily) (7) Fluids/Electrolytes/Nutrition/Prophylaxis Status: Acute Plan: Fluids: PO as tolerated. Salt restrict to 2,000 mg. Electrolytes: At goal, monitor while inpatient Nutrition: Heart healthy Anticoagulated on Coumadin therapy, pharm consult for management. wdw Dr. De La Torre. Problem Qualifiers (1) Chest pain: Qualified Code: R07.9 - Chest pain, unspecified type (2) HLD (hyperlipidemia): Qualified Code: E78.5 - Hyperlipidemia, unspecified hyperlipidemia type Mynor Neville MD R2 May 03, 2016 08:39
[2016-05-03] MEDS ORDERED: POLYETHYLENE GLYCOL 17 GM PKG PO ONE (09:00)
[2016-05-03] MEDS: LISINOPRIL 5 MG TAB PO SCH (09:00)
[2016-05-03] MEDS: CLOTRIMAZOLE 1% CREAM 15 GM TOPICAL SCH ×2 (09:30→21:11)
[2016-05-03] MEDS: WARFARIN SOD 5 MG TAB PO SCH (15:56)
[2016-05-03] MEDS: FINASTERIDE 5 MG TAB PO SCH (21:11)
[2016-05-03] MEDS: AMITRIPTYLINE HCL 10 MG TAB PO SCH (21:11)
[2016-05-03] MEDS: PRAVASTATIN SOD 20 MG TAB PO SCH (21:11)
[2016-05-04] VITALS (10 sets, daily range): BP systolic 88–130; BP diastolic 50–80; PULSE 78–113; RESP 18; TEMP 95.8–98.7; O2SAT 92–98
[2016-05-04 00:13] LABS: C. DIFF EPI 027 PRESUMPTIVE NEGATIVE (NEGATIVE); C. DIFF TOXIN PCR NEGATIVE (NEGATIVE)
[2016-05-04 05:31] LABS: INTERNATIONAL NORMALIZED RATIO 1.6 RATIO; PROTHROMBIN TIME - PATIENT 17.9 SEC (9.8-11.6)
[2016-05-04 05:42] LABS: BICARBONATE 35.2 MEQ/L (21.0-32.0); POTASSIUM 3.9 MEQ/L (3.5-5.1)
[2016-05-04] MEDS: METOPROLOL TARTRATE 25 MG TAB PO SCH ×2 (08:12→20:22)
[2016-05-04] MEDS: PANTOPRAZOLE SOD 20 MG DELAYED RELEASE TAB PO SCH ×2 (08:12→20:21)
[2016-05-04] MEDS: traMADol HCL 50 MG TAB PO SCH ×3 (08:12→17:16)
[2016-05-04] MEDS: CHOLECALCIFEROL (VIT D3) 1000 UNIT TAB PO SCH (08:12)
[2016-05-04] MEDS: MULTIVITAMIN HEMATINIC THERAPEUTIC TAB PO SCH (08:12)
[2016-05-04] MEDS: MAGNESIUM OXIDE 400 MG TAB PO SCH ×2 (08:13→20:21)
[2016-05-04] MEDS: DOCUSATE SODIUM 100 MG CAP PO SCH ×2 (08:13→20:21)
[2016-05-04] MEDS: LISINOPRIL 5 MG TAB PO SCH (08:13)
[2016-05-04] MEDS: FUROSEMIDE 40 MG TAB PO SCH (08:13)
[2016-05-04] MEDS: TAMSULOSIN HCL 0.4 MG CAP PO SCH (08:13)
[2016-05-04] MEDS: CLOTRIMAZOLE 1% CREAM 15 GM TOPICAL SCH ×2 (08:53→20:22)
--- NOTE | 2016-05-04 11:43 | HHI.FPPN ---
Subjective Remarks Patient was seen and examined this morning. He states he feels "much better" and had two good bowel movements. Still on nasal cannula but did not use oxygen as outpatient. Feels strong, has had no fevers, chills, chest pain. Eating and drinking well. (Chantal Crowder MD R1) Objective Vitals Vital Signs Date Time Temp Pulse Resp B/P Pulse Ox O2 Delivery O2 Flow Rate FiO2 05/04/16 08:00 105 05/04/16 07:12 95.8 102 18 117/80 96 05/04/16 03:41 98.0 113 18 125/67 95 05/03/16 20:40 98.2 103 19 104/81 97 05/03/16 20:00 114 05/03/16 15:25 96.2 104 19 121/66 97 05/03/16 15:17 Nasal Cannula 2.00 I/O 05/03/16 05/03/16 05/03/16 05/04/16 05/04/16 05/04/16 07:00 15:00 23:00 07:00 15:00 23:00 Intake Total 840 ml Output Total 750 ml 1775 ml 1250 ml Balance -750 ml -935 ml -1250 ml Intake Oral 840 ml Output Urine Total 750 ml 1775 ml 1250 ml # Bowel Movements 1 (Chantal Crowder MD R1) Result Diagram: 05/03/16 0545 05/04/16 0455 Imaging Last Impressions Chest X-Ray 04/29/16 1106 Signed Impressions: Service Date/Time: Friday, April 29, 2016 11:16 - CONCLUSION: 1. Mild cardiomegaly. 2. No acute focal pulmonary infiltrate or pulmonary vascular congestion. Alexandro Fuller MD Objective Remarks GENERAL: Comfortable, RR approx 18, on NC 2L. No accessory muscle use, talking in full sentences. SKIN: Multiple stuck on appearing, waxy lesions as well as small papules that are red in color. HEAD: Atraumatic. EYES: Pupils equal round and reactive. Extraocular motions intact. No scleral icterus. No injection or drainage. ENT: Nose without bleeding, purulent drainage or septal hematoma. CARDIOVASCULAR: No obvious JVD. Irregular rate, tele showing 100s rate, faint heart sounds noted, no obvious murmurs on exam. RESPIRATORY: Lungs clear to auscultation today, no upper airway sounds noted, no crackles or wheezes. GASTROINTESTINAL: No tenderness to palpation today. No evidence of distention. Hypoactive bowel sounds without organomegaly MUSCULOSKELETAL: 1+ pitting edema to ankles today, stable. NEUROLOGICAL: Awake and alert. Cranial nerves II through XII intact. Motor and sensory grossly within normal limits. Normal speech. Medications and IVs Inpatient Medications Amitriptyline HCl (Elavil) 10 mg HS PO Last administered on 05/03/16 21:11; Start 04/29/16 at 21:00 Aspirin (Aspirin Chew) 162 mg ONCE ONCE CHEW Last administered on 04/29/16 11 :25; Start 04/29/16 at 11:15; Stop 04/29/16 at 11:16; Status DC Cholecalciferol (Vitamin D3) 1,000 units DAILY PO Last administered on 08:12; Start 04/30/16 at 09:00 Clotrimazole (Lotrimin 1% Cream) 1 applic BID TOPICAL Last administered on 05/04 08:53; Start 04/29/16 at 21:00 Docusate Sodium (Colace) 200 mg BID PO Last administered on 05/04/16 08:13; Start 04/29/16 at 21:00 Finasteride (Proscar) 5 mg HS PO Last administered on 05/03/16 21:11; Start at 21:00 Furosemide (Lasix Inj) 40 mg BID IV PUSH Last administered on 04/30/16 21:02; Start 04/29/16 at 21:00; Stop 05/01/16 at 07:07; Status DC Furosemide (Lasix) 40 mg DAILY PO Last administered on 05/04/16 08:13; Start 05/03/16 at 09:00 Furosemide 40 mg 40 mg BID@,18 PO Last administered on 05/03/16 08:25; Start 05/01/16 at 09:00; Stop 05/03/16 at 09:00; Status DC IV Flush (NS Flush) 2 ml UNSCH PRN IVF FLUSH AFTER USING IV ACCESS Last administered on 04/30/16 21:01; Start 04/29/16 at 11:15 Lisinopril (Prinivil) 2.5 mg DAILY PO Last administered on 05/04/16 08:13; Start 05/01/16 at 09:00 Magnesium Oxide (Mag-Ox) 400 mg BID PO Last administered on 05/04/16 08:13; Start 04/29/16 at 21:00 Metoprolol Tartrate (Lopressor) 12.5 mg Q12HR PO Last administered on 08:12; Start 04/29/16 at 21:00 Miscellaneous (Pill Splitter) 1 ea UNSCH PRN OTHER SEE LABEL COMMENTS; Start at 16:15 Morphine Sulfate (Morphine Inj) 2 mg Q4H PRN IV PUSH CHEST PAIN; Start at 16:00 Multivitamin Hematinic Therapeutic (Theragran Hematinic) 1 tab DAILY PO Last administered on 05/04/16 08:12; Start 04/30/16 at 09:00 Nitroglycerin (Nitroglycerin 2% Oint) 0.5 inch Q6H PRN TOPICAL CHEST PAIN; Start 04/29/16 at 16:00 Oxycodone/ Acetaminophen (Percocet 7.5-325 Mg) 2 tab Q4H PRN PO PAIN SCALE 6 TO 10; Start 04/29/16 at 16:15 Pantoprazole Sodium (Protonix) 20 mg BID PO Last administered on 05/04/16 08: 12; Start 04/29/16 at 21:00 Patient Medication Teaching (Coumadin Booklet) 1 ONCE ONCE XX Last administered on 05/01/16 18:16; Start 05/01/16 at 16:00; Stop 05/01/16 at 16:01 ; Status DC Pharmacy Profile Note (Coumadin Consult Pharmacy) 0 ml @ 0 mls/hr UNSCH OTHER ; Start 05/01/16 at 09:30 Polyethylene Glycol (Miralax) 17 gm ONCE ONCE PO Last administered on 09:35; Start 05/03/16 at 09:00; Stop 05/03/16 at 09:11; Status DC Pravastatin Sodium (Pravachol) 20 mg HS PO Last administered on 05/03/16 21:11 ; Start 04/29/16 at 21:00 Tamsulosin HCl (Flomax) 0.4 mg DAILY PO Last administered on 05/04/16 08:13; Start 05/01/16 at 09:00 Tramadol HCl (Ultram) 100 mg TID PO Last administered on 05/04/16t 08:12; Start 04/29/16 at 18:00 Warfarin Sodium (Coumadin) 2.5 mg Mo@16 PO ; Start 05/05/16 at 16:00 (Chantal Crowder MD R1) Urinary Catheter: No Date of Insertion: Apr 30, 2016 (Chantal Crowder MD R1) Vascular Central Line Catheter: No (Chantal Crowder MD R1) A/P Assessment and Plan Mr. West is a pleasant 89 y/o male with an extensive PMHx of systolic heart failure, mitral valve replacement, carotid stenosis, HTN, HLP, depression, VIT D deficiency, BPH, and chronic a fib, presenting with worsening SOB x 2 weeks and LE swelling. Given nitro paste in ED, along with Lasix 40 mg IV, and ASA 325. Lab work on admission 04/29 significant for BNP of 214, creatinine of 1.34. CXR showed mild cardiomegaly, with no acute consolidations or vascular congestion. Pharmacological diuresis was initiated with IV Lasix. Patient was admitted under observation initially for working diagnosis of acute on chronic systolic heart failure. Discharge Planning He was admitted under observation status on 04/29, switched to inpatient status on 05/01. Probable d/c on 05/04 to SNF after three-midnight stay as inpatient given PT recommends rehabilitation. He has walk test ordered for today, if not requiring oxygen at rest or with exertion to maintain goal O2 sat >92% will be cleared for discharge today. (Chantal Crowder MD R1) Attending Attestation Pt. examined and case discussed with resident physicians I have read the above note and agree with the assessment/plan as discussed with me I was involved in all medical decision making for this patient Schuyler De La Torre MD (Schuyler De La Torre MD) Problem List: (1) Acute on chronic heart failure Status: Acute Plan: Acute exacerbation of chronic CHF with dyspnea and lower extremity edema. His symptoms are improved and he is clinically stable at this time. Hospital course: Lasix 40 mg IV BID --> transitioned to PO on 05/01. Monitor I&Os. Fluid overload noted on initial exam improving. No change on serial EKGs and cardiac enzymes were negative x 3. Daily weights, weight has improved. 3L urine output over last 24 hours. Continue Metoprolol at reduced dose, home dose = 25 twice a day, will give 12.5 twice a day. Nitropaste PRN chest pain ASA 325 daily Morphine 2 mg q 2 hr PRN chest pain Echocardiogram 04/29 showed EF 55%, prosthetic MV, and mild Tricuspid regurg. Continuous pulse ox, O2 supplementation O2 goal O2 > 92%, currently on 2 L nasal cannula, walk test ordered (2) Atrial fibrillation Status: Chronic Plan: Rate controlled, continue beta zacarias as above INR 3.3 (04/29, supra-therapeutic) -->--> 1.6 (05/04, subtherapeutic). Warfarin restarted 05/01. Monitor INR, goal of 2-3. Pharmacy consulted 05/01, currently on 2.5 mg daily. ASA 325 daily for Cardioprotection. (3) Chest pain Status: Resolved Plan: Currently asymptomatic. Cardiac enzymes negative. Monitor on telemetry- showing afib, rate low 100s (4) HLD (hyperlipidemia) Status: Chronic Plan: Lipids: LDL: 46, HDL 44.5,TG 86. At goal. Continue home statin management (pravastatin 20mg PO hs) (5) BPH (benign prostatic hypertrophy) Status: Chronic Plan: Continue home dose tamsulosin (0.4 mg PO daily) and finasteride (5 mg PO hs). (6) GERD (gastroesophageal reflux disease) Status: Chronic Plan: Continue home dose Protonix (20 mg PO daily) (7) Fluids/Electrolytes/Nutrition/Prophylaxis Status: Acute Plan: Fluids: PO as tolerated. Salt restrict to 2,000 mg. Electrolytes: At goal, monitor while inpatient Nutrition: Heart healthy Anticoagulated on Coumadin therapy, pharm consult for management. wdw Dr. De La Torre. (Chantal Crowder MD R1) Problem Qualifiers (1) Chest pain: Qualified Code: R07.9 - Chest pain, unspecified type (2) HLD (hyperlipidemia): Qualified Code: E78.5 - Hyperlipidemia, unspecified hyperlipidemia type Chantal Crowder MD R1 May 04, 2016 11:43 Schuyler De La Torre MD May 04, 2016 17:19
[2016-05-04] MEDS ORDERED: METO25TA3 PO (13:10)
[2016-05-04] MEDS ORDERED: VITA100018 PO (15:05)
[2016-05-04] MEDS ORDERED: TACR0.1O TOPICAL (15:05)
[2016-05-04] MEDS ORDERED: OMEP20TA PO (15:05)
[2016-05-04] MEDS ORDERED: LISI2.5T3 PO (15:05)
[2016-05-04] MEDS ORDERED: PRAV20TA PO (15:05)
[2016-05-04] MEDS ORDERED: TAMS5CAP PO (15:05)
[2016-05-04] MEDS ORDERED: COUM5TAB PO ×2 (15:05)
[2016-05-04] MEDS ORDERED: TYLE325T PO (15:05)
[2016-05-04] MEDS ORDERED: HIBI4LIQ TOPICAL (15:05)
[2016-05-04] MEDS ORDERED: PROS5TAB PO (15:05)
[2016-05-04] MEDS ORDERED: COLA100C3 PO (15:05)
[2016-05-04] MEDS ORDERED: MAGN420T PO (15:05)
[2016-05-04] MEDS ORDERED: MULTTAB62 PO (15:05)
[2016-05-04] MEDS ORDERED: FINA5TAB2 PO (15:05)
[2016-05-04] MEDS ORDERED: AMIT10TA6 PO (15:05)
[2016-05-04] MEDS ORDERED: ULTR50TA5 PO (15:05)
[2016-05-04] MEDS ORDERED: CLOT1CRE8 TOPICAL (15:05)
[2016-05-04] MEDS: WARFARIN SOD 5 MG TAB PO SCH (16:11)
[2016-05-04] MEDS: PRAVASTATIN SOD 20 MG TAB PO SCH (20:22)
[2016-05-04] MEDS: FINASTERIDE 5 MG TAB PO SCH (20:22)
[2016-05-04] MEDS: AMITRIPTYLINE HCL 10 MG TAB PO SCH (20:22)
--- NOTE | 2016-05-04 20:47 | HHI.FPPN ---
Addendum to progress note ADDENDUM Reason for addendum: Additonal documentation Additional information Dr. Jones received a page just before 8pm from pt's nurse stating that the patient was having sustained runs of tachycardia with a rate as high as 138 and shortness of breath. The pt has chronic AFIb and is rate-controlled on Metoprolol with heart rate normally in the 90's. He has not had rapid ventricular response during this admission. I stopped by to see the pt around 8:30 PM who stated that he could feel his heart racing and was feeling short of breath. He denied chest pain. Exam Vitals: BP 94/50, HR 132, RR 16, 95% on 2L Cardiovascular: Regular tachycardic rate Respiratory: CTAB, No increased WOB MSK: No pedal edema Assessment: 89 y/o with past medical history of chronic atrial fibrillation male presents with sustained tachycardia up to the high 130s Plan -Stat EKG - shows atrial flutter/tachycardia with rapid ventricular response, rate of 138 -Stat Troponin -Continue cardiac monitoring -Increase supplemental oxygen as needed -Give scheduled Lopressor 12.5 mg now; additional Lopressor 12.5 mg given 30 minutes later -[facility]IC is currently full; may need to call the [facility] nurse if we need to push IV medications Discussed with Dr. Matthew Beatty, PGY-2 Addendum I called the patient's nurse at 10:27 PM and received information that he was doing well. His heart rate was down to the high 80s and his blood pressure was in the low 100 systolic. The patient's nurse will call me if there are any acute changes clinical status. EkoSavanna MD R1 May 04, 2016 20:47
[2016-05-04] MEDS ORDERED: METOPROLOL TARTRATE 25 MG TAB PO ONE (21:00)
[2016-05-05 03:39] VITALS: BP 121/75; PULSE 88; RESP 18; TEMP 98.8; O2SAT 94
[2016-05-05 06:17] LABS: BASOPHIL % 0.5 % (0.0-2.0); EOSINOPHIL # 0.6 TH/MM3 (0-0.4); EOSINOPHIL % 8.7 % (0.0-4.0); HEMATOCRIT 35.3 % (39.0-51.0); HEMO FLAGS DIFF FINAL; LYMPH % 20.2 % (9.0-44.0); LYMPHOCYTE # 1.3 TH/MM3 (1.0-4.8); MEAN CELL VOLUME 88.6 FL (80.0-100.0); MEAN CORPUSCULAR HGB CONC 32.7 % (32.0-36.0); MONO % 10.6 % (0.0-8.0); PLATELET COUNT 209 TH/MM3 (150-450); RED BLOOD COUNT 3.99 MIL/MM3 (4.50-5.90); RED CELL DISTRIBUTION WIDTH 14.3 % (11.6-17.2); WHITE BLOOD COUNT 6.7 TH/MM3 (4.0-11.0)
[2016-05-05 06:20] LABS: INTERNATIONAL NORMALIZED RATIO 1.7 RATIO; PROTHROMBIN TIME - PATIENT 18.7 SEC (9.8-11.6)
[2016-05-05 06:26] LABS: BICARBONATE 34.6 MEQ/L (21.0-32.0); POTASSIUM 4.3 MEQ/L (3.5-5.1)
[2016-05-05 07:20] VITALS: BP 92/66; PULSE 104; RESP 17; TEMP 98.1; O2SAT 98
[2016-05-05] MEDS ORDERED: METOPROLOL TARTRATE 25 MG TAB PO SCH ×2 (09:00)
--- NOTE | 2016-05-05 09:13 | HHI.FPPN ---
Subjective Remarks Mr. West is feeling well today, wondering if he can go to SNF. His BP have fluctuated over past 24 hr - ranging from 88/68 systolic to 121/75. He needed an additional dose of 12.5 mg PO Metoprolol for a fib. with a rate of 138. His rate this morning is 90-100. We resumed his home dose of Metoprolol 25 mg PO BID He did feel SOB during this episode but denies CP or palpitations. A trop was negative and EKG remained unchanged showing a fib. Yesterday, he is walking with PT and becomes mildly SOB. He is on 2 L NC and satting at 94%. Overall he feels ready to go to SNF. (Mynor Neville MD R2) Objective Vitals Vital Signs Date Time Temp Pulse Resp B/P Pulse Ox O2 Delivery O2 Flow Rate FiO2 05/05/16 07:20 98.1 104 17 92/66 98 05/05/16 03:39 98.8 88 18 121/75 94 05/04/16 23:17 98.7 87 18 111/67 97 05/04/16 21:20 98 05/04/16 21:13 98.4 78 18 94/50 97 05/04/16 16:08 98.0 92 18 99/57 98 05/04/16 13:00 95/55 05/04/16 11:55 96.9 97 18 88/68 94 05/04/16 09:36 97 Nasal Cannula 2.00 I/O 05/04/16 05/04/16 05/04/16 05/05/16 05/05/16 05/05/16 07:00 15:00 23:00 07:00 15:00 23:00 Intake Total 240 ml Output Total 1250 ml 1375 ml 625 ml Balance -1250 ml -1135 ml -625 ml Intake Oral 240 ml Output Urine Total 1250 ml 1375 ml 625 ml (Mynor Neville MD R2) Result Diagram: 05/05/16 0505/05/16 0520 Objective Remarks GENERAL: Comfortable, RR approx 18, on NC 2L. No accessory muscle use, talking in full sentences. SKIN: Multiple stuck on appearing, waxy lesions as well as small papules that are red in color. HEAD: Atraumatic. EYES: Pupils equal round and reactive. Extraocular motions intact. No scleral icterus. No injection or drainage. ENT: Nose without bleeding, purulent drainage or septal hematoma. CARDIOVASCULAR: No obvious JVD. Irregular rate, tele showing 100s rate, faint heart sounds noted, no obvious murmurs on exam. RESPIRATORY: Lungs clear to auscultation today, no upper airway sounds noted, no crackles or wheezes. GASTROINTESTINAL: No tenderness to palpation today. No evidence of distention. Hypoactive bowel sounds without organomegaly MUSCULOSKELETAL: 1+ pitting edema to ankles today, stable. NEUROLOGICAL: Awake and alert. Cranial nerves II through XII intact. Motor and sensory grossly within normal limits. Normal speech. (Mynor Neville MD R2) Date of Insertion: Apr 30, 2016 (Mynor Neville MD R2) A/P Assessment and Plan Mr. West is a pleasant 89 y/o male with an extensive PMHx of systolic heart failure, mitral valve replacement, carotid stenosis, HTN, HLP, depression, VIT D deficiency, BPH, and chronic a fib, presenting with worsening SOB x 2 weeks and LE swelling. Given nitro paste in ED, along with Lasix 40 mg IV, and ASA 325. Lab work on admission 04/29 significant for BNP of 214, creatinine of 1.34. CXR showed mild cardiomegaly, with no acute consolidations or vascular congestion. Pharmacological diuresis was initiated with IV Lasix. Patient was admitted under observation initially for working diagnosis of acute on chronic systolic heart failure. Discharge Planning He was admitted under observation status on 04/29, switched to inpatient status on 05/01. Probable d/c on 05/04 to SNF after three-midnight stay as inpatient given PT recommends rehabilitation. He has walk test ordered for today, if not requiring oxygen at rest or with exertion to maintain goal O2 sat >92% will be cleared for discharge today. (Mynor Neville MD R2) Attending Attestation Pt. examined and case discussed with resident physicians I have read the above note and agree with the assessment/plan as discussed with me I was involved in all medical decision making for this patient Schuyler De La Torre MD (Schuyler De La Torre MD) Problem List: (1) Acute on chronic heart failure Status: Acute Plan: Acute exacerbation of chronic CHF with dyspnea and lower extremity edema. His symptoms are improved and he is clinically stable at this time. Hospital course: Lasix 40 mg IV BID --> transitioned to Lasix 40 mg PO qd on 05/01. Monitor I&Os. Fluid overload noted on initial exam improving. No change on serial EKGs and cardiac enzymes were negative x 3. Daily weights, weight has improved. 3L urine output over last 24 hours. Continue Metoprolol at home dose = 25 twice a day. Nitropaste PRN chest pain ASA 325 daily Morphine 2 mg q 2 hr PRN chest pain Echocardiogram 04/29 showed EF 55%, prosthetic MV, and mild Tricuspid regurg. Continuous pulse ox, O2 supplementation O2 goal O2 > 92%, currently on 2 L nasal cannula, walk test ordered (2) Atrial fibrillation Status: Chronic Plan: Rate controlled this AM, continue beta zacarias as above INR 3.3 (04/29, supra-therapeutic) -->--> 1.7 (05/05, subtherapeutic). Warfarin restarted 05/01. Monitor INR, goal of 2-3. Pharmacy consulted 05/01, currently on 5.0 mg daily (Thu-Thu) and 2.5 mg on mondays. ASA 325 daily for Cardioprotection. (3) Chest pain Status: Resolved Plan: Currently asymptomatic. Cardiac enzymes negative. Monitor on telemetry- showing afib, rate low 100s (4) HLD (hyperlipidemia) Status: Chronic Plan: Lipids: LDL: 46, HDL 44.5,TG 86. At goal. Continue home statin management (pravastatin 20mg PO hs) (5) BPH (benign prostatic hypertrophy) Status: Chronic Plan: Continue home dose tamsulosin (0.4 mg PO daily) and finasteride (5 mg PO hs). (6) GERD (gastroesophageal reflux disease) Status: Chronic Plan: Continue home dose Protonix (20 mg PO daily) (7) Fluids/Electrolytes/Nutrition/Prophylaxis Status: Acute Plan: Fluids: PO as tolerated. Salt restrict to 2,000 mg. Electrolytes: At goal, monitor while inpatient Nutrition: Heart healthy Anticoagulated on Coumadin therapy, pharm consult for management. analy De La Torre. (Mynor Neville MD R2) Problem Qualifiers (1) Chest pain: Qualified Code: R07.9 - Chest pain, unspecified type (2) HLD (hyperlipidemia): Qualified Code: E78.5 - Hyperlipidemia, unspecified hyperlipidemia type Mynor Neville MD R2 May 05, 2016 09:13 Schuyler De La Torre MD May 05, 2016 19:07
--- NOTE | 2016-05-05 09:13 | HHI.DS ---
Discharge Summary Admission Date May 01, 2016 at 15:14 Admitting Diagnosis congestive heart failure, chest pain rule out ACS (1) Acute on chronic heart failure Plan: Acute exacerbation of chronic CHF with dyspnea and lower extremity edema. His symptoms are improved and he is clinically stable at this time. Hospital course: Lasix 40 mg IV BID --> transitioned to PO on 05/01. Monitor I&Os. Fluid overload noted on initial exam improving. No change on serial EKGs and cardiac enzymes were negative x 3. Daily weights, weight has improved. 3L urine output over last 24 hours. Continue Metoprolol at reduced dose, home dose = 25 twice a day, will give 12.5 twice a day. Nitropaste PRN chest pain ASA 325 daily Morphine 2 mg q 2 hr PRN chest pain Echocardiogram 04/29 showed EF 55%, prosthetic MV, and mild Tricuspid regurg. Continuous pulse ox, O2 supplementation O2 goal O2 > 92%, currently on 2 L nasal cannula, walk test ordered (2) Atrial fibrillation Plan: Rate controlled, continue beta zacarias as above INR 3.3 (04/29, supra-therapeutic) -->--> 1.6 (05/04, subtherapeutic). Warfarin restarted 05/01. Monitor INR, goal of 2-3. Pharmacy consulted 05/01, currently on 2.5 mg daily. ASA 325 daily for Cardioprotection. (3) Chest pain Plan: Currently asymptomatic. Cardiac enzymes negative. Monitor on telemetry- showing afib, rate low 100s (4) HLD (hyperlipidemia) Plan: Lipids: LDL: 46, HDL 44.5,TG 86. At goal. Continue home statin management (pravastatin 20mg PO hs) (5) BPH (benign prostatic hypertrophy) Plan: Continue home dose tamsulosin (0.4 mg PO daily) and finasteride (5 mg PO hs). (6) GERD (gastroesophageal reflux disease) Plan: Continue home dose Protonix (20 mg PO daily) (7) Fluids/Electrolytes/Nutrition/Prophylaxis Plan: Fluids: PO as tolerated. Salt restrict to 2,000 mg. Electrolytes: At goal, monitor while inpatient Nutrition: Heart healthy Anticoagulated on Coumadin therapy, pharm consult for management. wdw Dr. De La Torre. Brief History 89 yo M presenting to the ED with progressive SOB and lower extremity edema for the past 2 weeks. He was sent to the ED by oncology where he was being evaluated for his existing RCC when he was found to be edematous with crackles on pulmonary exam. He describes relatively sudden worsening of his shortness of breath, dyspnea on exertion, lower extremity edema, and a 10 lb weight gain going back 2 weeks. Prior to that he was in his usual state of health. He does endorse some orthopnea, chest pressure with palpitations, and some abdominal fullness. He denies fevers/chills, denies nausea/vomiting, denies diaphoresis. He has a history significant for atrial fibrillation and is anticoagulated on coumadin with his last INR reportedly 3.1. He states he has a mitral valve replacement in 2003 with subsequent endocarditis that was treated with IV abx for >100 days in 2006. He sees cardiology through the [facility], cannot recall who he regularly sees. CBC/BMP: 05/05/16 0520 05/05/16 0520 Significant Findings Laboratory Tests Test 05/03/16 05/04/16 05/04/16 05/04/16 05:45 04:45 04:55 21:28 Red Blood Count 4.07 MIL/MM3 (4.50-5.90) Hemoglobin 11.8 GM/DL (13.0-17.0) Hematocrit 35.7 % (39.0-51.0) Monocytes (%) (Auto) 10.3 % (0.0-8.0) Eosinophils (%) (Auto) 7.0 % (0.0-4.0) Eosinophils # (Auto) 0.5 TH/MM3 (0-0.4) Prothrombin Time 15.7 SEC 17.9 SEC (9.8-11.6) (9.8-11.6) Chloride Level 97 MEQ/L 97 MEQ/L (98-107) (98-107) Carbon Dioxide Level 35.6 MEQ/L 35.2 MEQ/L (21.0-32.0) (21.0-32.0) Blood Urea Nitrogen 28 MG/DL (7-18) 28 MG/DL (7-18) Creatinine 1.42 MG/DL 1.38 MG/DL (0.60-1.30) (0.60-1.30) Estimat Glomerular Filtration 47 ML/MIN (>89) 49 ML/MIN (>89) Rate Troponin I LESS THAN 0.02 NG/ML (0.02-0.05) Test 05/05/16 05:20 Red Blood Count 3.99 MIL/MM3 (4.50-5.90) Hemoglobin 11.6 GM/DL (13.0-17.0) Hematocrit 35.3 % (39.0-51.0) Monocytes (%) (Auto) 10.6 % (0.0-8.0) Eosinophils (%) (Auto) 8.7 % (0.0-4.0) Eosinophils # (Auto) 0.6 TH/MM3 (0-0.4) Prothrombin Time 18.7 SEC (9.8-11.6) Chloride Level 96 MEQ/L (98-107) Carbon Dioxide Level 34.6 MEQ/L (21.0-32.0) Blood Urea Nitrogen 33 MG/DL (7-18) Creatinine 1.57 MG/DL (0.60-1.30) Estimat Glomerular Filtration 42 ML/MIN (>89) Rate PE at Discharge GENERAL: Comfortable, RR approx 18, on NC 2L. No accessory muscle use, talking in full sentences. SKIN: Multiple stuck on appearing, waxy lesions as well as small papules that are red in color. HEAD: Atraumatic. EYES: Pupils equal round and reactive. Extraocular motions intact. No scleral icterus. No injection or drainage. ENT: Nose without bleeding, purulent drainage or septal hematoma. CARDIOVASCULAR: No obvious JVD. Irregular rate, tele showing 100s rate, faint heart sounds noted, no obvious murmurs on exam. RESPIRATORY: Lungs clear to auscultation today, no upper airway sounds noted, no crackles or wheezes. GASTROINTESTINAL: No tenderness to palpation today. No evidence of distention. Hypoactive bowel sounds without organomegaly MUSCULOSKELETAL: 1+ pitting edema to ankles today, stable. NEUROLOGICAL: Awake and alert. Cranial nerves II through XII intact. Motor and sensory grossly within normal limits. Normal speech. Pt Condition on Discharge: Fair Discharge Disposition: Discharge to SNF Discharge Instructions Additional Information Mr. West is a very pleasant 89 y/o with a past medical history of coronary artery disease, bullous pemphigus, atrial fibrillation, hypertension, BPH, prior CVA, and temporal arteritis he was admitted for CHF exacerbation. He was diuresed with IV furosemide. He did well. An echocardiogram done showed an ejection fraction of 55%, with a bioprosthetic mitral valve with mild regurgitation, and increased PA pressure of 50 mm Hg. He diuresed well, and his rate was controlled on metoprolol 25 mg twice day. He was walking with physical therapy, but needs assistance. His INR was subtherapeutic 1.7 on d/c. He was getting 5 mg all days except Mondays when he gets 2.5 mg. D/c'ed in stable condition. Mynor Neville MD R2 May 05, 2016 09:13
[2016-05-05] MEDS ORDERED: METO25TA3 PO (09:24)
[2016-05-05] MEDS ORDERED: FURO40TA PO (09:24)
[2016-05-05] MEDS: DOCUSATE SODIUM 100 MG CAP PO SCH (09:39)
[2016-05-05] MEDS: traMADol HCL 50 MG TAB PO SCH (09:40)
[2016-05-05] MEDS: TAMSULOSIN HCL 0.4 MG CAP PO SCH (09:40)
[2016-05-05] MEDS: MULTIVITAMIN HEMATINIC THERAPEUTIC TAB PO SCH (09:40)
[2016-05-05] MEDS: CHOLECALCIFEROL (VIT D3) 1000 UNIT TAB PO SCH (09:40)
[2016-05-05] MEDS: MAGNESIUM OXIDE 400 MG TAB PO SCH (09:40)
[2016-05-05] MEDS: PANTOPRAZOLE SOD 20 MG DELAYED RELEASE TAB PO SCH (09:40)
[2016-05-05] MEDS: FUROSEMIDE 40 MG TAB PO SCH (09:40)
[2016-05-05] MEDS: CLOTRIMAZOLE 1% CREAM 15 GM TOPICAL SCH (09:41)
[2016-05-05] MEDS ORDERED: WARFARIN SOD 2.5 MG TAB PO SCH (16:00)
[2016-05-05] MEDS ORDERED: WARFARIN SOD 5 MG TAB PO SCH (16:00)
--- NOTE | 2016-05-05 17:31 | EKG ---
Date Performed: 05/04/2016 Time Performed: 20:13:49 PTAGE: 89 years EKG: ATRIAL FLUTTER/TACHYCARDIA WITH RAPID VENTRICULAR RESPONSE POSSIBLE ANTERIOR MYOCARDIAL INF ARCTION Atrial flutter is new since prior tracing. Clinical corrolation is suggested. ABNORMAL ECGPRE VIOUS TRACING : 04/30/2016 02.12 DOCTOR: Alex Gomez Interpretating Date/Time 05/05/2016 17:30:01
== END 2016-05-05 13:43 | DRG 292 ==
LOC: NEPA 10:35 → NEDA 13:16 → NEPGCP 19:05 → OBSVTOIN 05-01 15:14 → HOCA 05-03 23:10 → NEPGCP 05-03 23:10 → HOCB 05-03 23:45 → NEPGCP 05-03 23:53
PROVIDERS: ADMIT Family Medicine; ATTEND Family Medicine
DX: I50.23 Acute on chronic systolic (congestive) heart failure (principal); L10.9 Pemphigus, unspecified; M31.6 Other giant cell arteritis; I48.92 Unspecified atrial flutter; E55.9 Vitamin D deficiency, unspecified; I07.1 Rheumatic tricuspid insufficiency; I48.2 Chronic atrial fibrillation; Z95.2 Presence of prosthetic heart valve; I10 Essential (primary) hypertension; E78.00 Pure hypercholesterolemia, unspecified; M54.5 Low back pain; N40.0 Benign prostatic hyperplasia without lower urinary tract symptoms; K21.9 Gastro-esophageal reflux disease without esophagitis; M19.90 Unspecified osteoarthritis, unspecified site; Z85.528 Personal history of other malignant neoplasm of kidney; H91.93 Unspecified hearing loss, bilateral; Z86.73 Personal history of transient ischemic attack (TIA), and cerebral infarction without residual deficits; Z88.5 Allergy status to narcotic agent; Z88.8 Allergy status to other drugs, medicaments and biological substances; Z91.09 Other allergy status, other than to drugs and biological substances; Z79.52 Long term (current) use of systemic steroids; Z96.652 Presence of left artificial knee joint; Z79.01 Long term (current) use of anticoagulants; Z80.42 Family history of malignant neoplasm of prostate; E78.5 Hyperlipidemia, unspecified; F32.9 Major depressive disorder, single episode, unspecified; R00.2 Palpitations; Z87.891 Personal history of nicotine dependence; R10.30 Lower abdominal pain, unspecified
CPT/HCPCS: 71010; 80048; 80053; 80061; 82272; 82550; 83735; 83880; 84100; 84443; 84484; 85025; 85610; 85730; 87086; 87493; 93005; 93306; 94620; 96374; G0378; G8987-GP; G8988-GP; J1940

== ENCOUNTER 2016-06-26 12:20 | Inpatient (IN) | payer MEDICARE, OTHER ==
[~2016-06-26] VITALS: Ht 170.2 cm; Wt 84.7 kg
[2016-06-26] VITALS (8 sets, daily range): BP systolic 103–134; BP diastolic 63–75; PULSE 87–138; RESP 16–22; TEMP 97.1–98.6; O2SAT 93–97
[~2016-06-26 12:20] MED LIST changes: +FINA5TAB2 PO; -FURO20TA PO; +FURO40TA PO; -PERC5TAB12 PO; +POTA10CA PO
[2016-06-26] MEDS ORDERED: SODIUM CHLORIDE 0.9% FLUSH 10 ML FLUSH IVF PRN (12:45)
--- NOTE | 2016-06-26 12:48 | PD ---
HPI Chief Complaint: shortness of breath and chest pain Time Seen by Provider: 12:27 Travel History International Travel<30 days: No Contact w/Intl Traveler<30days: No Traveled to known affect area: No History of Present Illness HPI This is an 89-year-old gentleman with a history of CHF, coronary artery disease , cardiomyopathy, chronic back pain, irregular heartbeat, who presents today with complaints of shortness of breath and pleuritic chest pain. The patient states that he's had for aggressive shortness of breath over the last 2-3 days. He states it hurts when he takes a deep breath. According to his , he gets home physical therapy and when the physical therapist came to evaluate him last, he found his heart rate to be extremely elevated and did not recommend him doing physical therapy. They presented to the [facility] today and when the [facility] physician saw his EKG, they sent him here for further workup and evaluation. PFSH Past Medical History Hx Anticoagulant Therapy: Yes Arthritis: Yes Asthma: No Atrial Fibrillation: Yes Autoimmune Disease: No Blood Disorders: No Anxiety: No Depression: No Heart Rhythm Problems: Yes (A FIB ) Cancer: Yes (CLEAR RENAL CELL CARCINOMA) Cardiovascular Problems: Yes High Cholesterol: Yes Chemotherapy: No Chest Pain: Yes Congestive Heart Failure: Yes COPD: No Cerebrovascular Accident: Yes Diabetes: No Diminished Hearing: Yes (HEARING AID BILATERALLY) Endocrine: No Gastrointestinal Disorders: Yes (constipation) GERD: Yes Genitourinary: No Headaches: Yes (TEMPORAL ARTERITIS) Hepatitis: No Hiatal Hernia: No Hypertension: No Immune Disorder: No Implanted Vascular Access Dvce: Yes Kidney Stones: No Musculoskeletal: Yes Neurologic: Yes Psychiatric: No Reproductive: No Respiratory: Yes Integumentary: Yes (PEMFIGIS) Immunizations Current: Yes Migraines: No Radiation Therapy: No Renal Failure: No Seizures: No Sickle Cell Disease: No Sleep Apnea: No Thyroid Disease: No Ulcer: No Past Surgical History Abdominal Surgery: Yes (HERNIA REPAIR) AICD: No Body Medical Devices: PROSTHESIS IN THE THROAT, MITRAL VALVE REPLACEMENT 2003 Cardiac Surgery: Yes (OPEN HEART FOR MVP) Ear Surgery: No Endocrine Surgery: No Eye Surgery: No Genitourinary Surgery: No Gynecologic Surgery: No Joint Replacement: Yes (left knee) Neurologic Surgery: No Oral Surgery: No Pacemaker: No Thoracic Surgery: Yes Other Surgery: Yes (PROTHESIS IN NECK left / CRYOABLATION) Social History Alcohol Use: No Tobacco Use: No Substance Use: No Allergies-Medications (Allergen,Severity, Reaction): Coded Allergies: Coreg (Verified Allergy, Severe, 04/29/16) Adhesives (Verified Adverse Reaction, Severe, SKIN TEARS, 04/29/16) Hydrocodone (Verified Adverse Reaction, Mild, 04/29/16) REPORTS RED SPOTS ON SKIN AND TINGLING Reported Meds & Prescriptions Reported Meds & Active Scripts Active Metoprolol Tartrate 25 Mg Tab 25 Mg PO BID Furosemide 40 Mg Tab 40 Mg PO DAILY Finasteride 5 Mg Tab 5 Mg PO HS Coumadin (Warfarin) 5 Mg Tab 2.5 Mg PO MO Take 1/2 tablet (2.5mg) daily on Thursday Tacrolimus Topical 0.1 % Oint 1 Applic TOPICAL DAILY PRN Multi-Vitamin/Minerals (Multiple Vitamins W/ Minerals) 1 Tab Tab 1 Tab PO DAILY Vitamin D3 (Cholecalciferol) 1,000 Unit Tab 1,000 Units PO DAILY Magnesium Oxide 420 Mg Tab 420 Mg PO BID Ultram (Tramadol HCl) 50 Mg Tab 100 Mg PO Q8HR PRN Tylenol (Acetaminophen) 325 Mg Tab 325 Mg PO Q12HR PRN Proscar (Finasteride) 5 Mg Tab 5 Mg PO DAILY Do not crush. Pravachol (Pravastatin) 20 Mg Tab 20 Mg PO HS Omeprazole 20 Mg Tab 20 Mg PO BID Lisinopril 2.5 Mg Tab 2.5 Mg PO DAILY Hibiclens Topical (Chlorhexidine Gluconate) 4% Liq 1 Applic TOPICAL EVERY OTHER DAY Flomax (Tamsulosin HCl) 0.4 Mg Cap 0.4 Mg PO DAILY Coumadin (Warfarin) 5 Mg Tab 5 Mg PO SUTUWETHFRSA Take 1 tablet (5mg) daily on Thursday,Thursday,Thursday,,Thursday and Thursday Colace (Docusate Sodium) 100 Mg Cap 200 Mg PO BID Amitriptyline (Amitriptyline HCl) 10 Mg Tab 10 Mg PO HS Clotrimazole AF Topical (Clotrimazole) 1% Cream 1 Applic TOPICAL BID Potassium Chloride ER (Potassium Chloride) 10 Meq Cap 10 Meq PO BID Review of Systems Except as stated in HPI: all other systems reviewed are Neg General / Constitutional: No: Fever, Chills HENT: No: Headaches, Lightheadedness Cardiovascular: Positive: Chest Pain or Discomfort (pleuritic), Palpitations, Irregular Rhythm, Tachycardia Respiratory: Positive: Shortness of Breath, Wheezing, No: Cough Gastrointestinal: No: Nausea, Vomiting, Abdominal Pain Musculoskeletal: Positive: Weakness, Pain (chronic back pain) Neurologic: Positive: Weakness, No: Dizziness, Headache, Change in Mentation Physical Exam Narrative GENERAL: Elderly weak-appearing gentleman in mild respiratory discomfort. SKIN: Focused skin assessment warm/dry. HEAD: Atraumatic. Normocephalic. EYES: No scleral icterus. No injection or drainage. ENT: Mucous membranes pink and moist. NECK: Trachea midline. No JVD. Supple. CARDIOVASCULAR: Tachycardic with occasional PVCs. He did appear to be somewhat irregular. RESPIRATORY: Mild accessory muscle use. Fine Rales heard at the bilateral lung bases. GASTROINTESTINAL: Abdomen soft, non-tender, nondistended. MUSCULOSKELETAL: No obvious deformities. No clubbing. No cyanosis. No edema. NEUROLOGICAL: Awake and alert. No obvious cranial nerve deficits. Motor grossly within normal limits. Normal speech. Data Data Last Documented VS Vital Signs Date Time Temp Pulse Resp B/P Pulse Ox O2 Delivery O2 Flow Rate FiO2 06/26/16 14:22 87 18 107/63 93 Room Air 06/26/16 12:22 98.6 Orders Electrocardiogram (06/26/16 12:35) B-Type Natriuretic Peptide (06/26/16 12:35) Ckmb (Isoenzyme) Profile (06/26/16 12:35) Complete Blood Count With Diff (06/26/16 12:35) Comprehensive Metabolic Panel (06/26/16 12:35) Magnesium (Mg) (06/26/16 12:35) Prothrombin Time / Inr (Pt) (06/26/16 12:35) Act Partial Throm Time (Ptt) (06/26/16 12:35) Troponin I (06/26/16 12:35) Chest, Single Ap (06/26/16 12:35) Ecg Monitoring (06/26/16 12:35) Bilateral Bp Monitoring (06/26/16 12:35) Iv Access Insert/Monitor (06/26/16 12:35) Oximetry (06/26/16 12:35) Oxygen Administration (06/26/16 12:35) Sodium Chloride 0.9% Flush (Ns Flush) (06/26/16 12:45) Diltiazem Inj (Cardizem Inj) (06/26/16 13:45) Diltiazem Inj (Cardizem Inj) (06/26/16 13:45) Admit Order (Ed Use Only) (06/26/16 14:27) Labs Laboratory Tests Test 06/26/16 12:45 White Blood Count 5.3 TH/MM3 Red Blood Count 4.03 MIL/MM3 Hemoglobin 11.4 GM/DL Hematocrit 35.9 % Mean Corpuscular Volume 89.2 FL Mean Corpuscular Hemoglobin 28.2 PG Mean Corpuscular Hemoglobin 31.6 % Concent Red Cell Distribution Width 14.3 % Platelet Count 167 TH/MM3 Mean Platelet Volume 8.3 FL Neutrophils (%) (Auto) 68.5 % Lymphocytes (%) (Auto) 19.0 % Monocytes (%) (Auto) 9.0 % Eosinophils (%) (Auto) 2.6 % Basophils (%) (Auto) 0.9 % Neutrophils # (Auto) 3.7 TH/MM3 Lymphocytes # (Auto) 1.0 TH/MM3 Monocytes # (Auto) 0.5 TH/MM3 Eosinophils # (Auto) 0.1 TH/MM3 Basophils # (Auto) 0.1 TH/MM3 CBC Comment DIFF FINAL Differential Comment Prothrombin Time 13.9 SEC Prothromb Time International 1.2 RATIO Ratio Activated Partial 35.4 SEC Thromboplast Time Sodium Level 139 MEQ/L Potassium Level 4.6 MEQ/L Chloride Level 105 MEQ/L Carbon Dioxide Level 31.0 MEQ/L Anion Gap 3 MEQ/L Blood Urea Nitrogen 27 MG/DL Creatinine 1.60 MG/DL Estimat Glomerular Filtration 41 ML/MIN Rate Random Glucose 115 MG/DL Calcium Level 9.1 MG/DL Magnesium Level 2.4 MG/DL Total Bilirubin 0.9 MG/DL Aspartate Amino Transf 23 U/L (AST/SGOT) Alanine Aminotransferase 17 U/L (ALT/SGPT) Alkaline Phosphatase 92 U/L Total Creatine Kinase 55 U/L Troponin I LESS THAN 0.02 NG/ML B-Type Natriuretic Peptide 67 PG/ML Total Protein 7.2 GM/DL Albumin 3.6 GM/DL MDM Medical Decision Making Medical Screen Exam Complete: Yes Emergency Medical Condition: Yes Differential Diagnosis ACS versus congestive heart failure versus pneumonia versus pulmonary embolism Narrative Course This is an 89-year-old gentleman with history of atrial fibrillation, cardiomyopathy, chronic back pain, renal sufficiency, who presents today with complaints of shortness of breath with pleuritic discomfort. The patient was noted to be in A. fib with RVR with a rate in the 130s 140s. He was given diltiazem bolus followed by diltiazem drip. The patient has been on metoprolol in the past. He is also on Coumadin. His INR is 1.2. There is a call out to the resident service for admission. He'll need a cardiac telemetry floor. Diagnosis Primary Impression: Atrial fibrillation with rapid ventricular response Additional Impressions: Chronic kidney disease Anemia Chronic back pain Chest pain Charles Patiño MD June 26, 2016 12:48 Chronic back pain Chest pain Charles Patiño MD June 26, 2016 12:48
--- NOTE | 2016-06-26 13:03 | RADRPT ---
EXAM DATE/TIME: 06/26/2016 12:40 [facility] COMPARISON: CHEST SINGLE AP, April 29, 2016, 11:16. INDICATIONS : Chest pain and weakness on and off for several months. MEDICAL HISTORY : Congestive heart failure. Stroke. Renal cancer. SURGICAL HISTORY : Right carotid surgery. Left knee replacement. Vocal cord prosthesis. Valve replacement. Hernia repair . ENCOUNTER: Initial ACUITY: 2 months PAIN SCORE: 3/10 LOCATION: Bilateral chest FINDINGS: The cardiac silhouette is enlarged in transverse diameter. The lungs are free of acute parenchymal op acity. No effusions are identified. There is prominence of the aortic knob is with calcification drew acteristic of atherosclerotic vascular disease. A prosthetic mitral valve is in place. CONCLUSION: 1. Cardiomegaly. No acute pulmonary disease. Basim Don MD on June 26, 2016 at 13:01 Board Certified Radiologist. This report was verified electronically.
[2016-06-26 13:04] LABS: AUTOMATED NEUTROPHIL # 3.7 TH/MM3 (1.8-7.7); BASOPHIL # 0.1 TH/MM3 (0-0.2); BASOPHIL % 0.9 % (0.0-2.0); EOSINOPHIL # 0.1 TH/MM3 (0-0.4); EOSINOPHIL % 2.6 % (0.0-4.0); HEMATOCRIT 35.9 % (39.0-51.0); HEMO FLAGS DIFF FINAL; MEAN CELL VOLUME 89.2 FL (80.0-100.0); MEAN CORPUSCULAR HEMOGLOBIN 28.2 PG (27.0-34.0); MEAN CORPUSCULAR HGB CONC 31.6 % (32.0-36.0); NEUT % 68.5 % (16.0-70.0); PLATELET COUNT 167 TH/MM3 (150-450); RED BLOOD COUNT 4.03 MIL/MM3 (4.50-5.90); RED CELL DISTRIBUTION WIDTH 14.3 % (11.6-17.2); WHITE BLOOD COUNT 5.3 TH/MM3 (4.0-11.0)
[2016-06-26 13:12] LABS: APTT (PATIENT) 35.4 SEC (24.3-30.1); INTERNATIONAL NORMALIZED RATIO 1.2 RATIO; PROTHROMBIN TIME - PATIENT 13.9 SEC (9.8-11.6)
[2016-06-26 13:18] LABS: ALT (GPT) 17 U/L (12-78); ANION GAP 3 MEQ/L (5-15); AST (GOT) 23 U/L (15-37); BLOOD UREA NITROGEN 27 MG/DL (7-18); CHLORIDE 105 MEQ/L (98-107); GLOMERULAR FILTRATION RATE 41 ML/MIN (>89); MAGNESIUM 2.4 MG/DL (1.5-2.5); POTASSIUM 4.6 MEQ/L (3.5-5.1); SODIUM (NA) 139 MEQ/L (136-145)
[2016-06-26 13:21] LABS: ALKALINE PHOSPHATASE 92 U/L (45-117); TOTAL BILIRUBIN ADULT 0.9 MG/DL (0.2-1.0)
[2016-06-26 13:27] LABS: CREATINE KINASE 55 U/L (39-308)
[2016-06-26] MEDS ORDERED: DILTIAZEM HCL 25 MG/5 ML VIAL IV PUSH ONE (13:45)
[2016-06-26] MEDS ORDERED: DILTIAZEM INJ 125 MG in SODIUM CHLORIDE 0.9% INJ 100 ML IV SCH ×2 (13:45→15:30)
--- NOTE | 2016-06-26 14:52 | HHI.HP ---
[facility] Service Family Medicine Primary Care Physician [facility] Admission Diagnosis atrial fibrillation with rvr, ckd, cardiomyopathy, chronic back pain Diagnoses: International Travel<30 Days: No Contact w/Intl Traveler<30days: No Known Affected Area: No History of Present Illness History mostly obtained from This 89-year-old male with an extensive past history significant for A. fib, congestive heart failure, coronary artery disease, cardiomyopathy, mitral valve replacement, and GERD. He's coming to the hospital today due to chest pain and shortness of breath. He gets rehabilitation frequently at home, and was having a rehabilitation session today. The rehabilitation nurse noticed that his heart rate was 144. He admits that he hadn't taken his meds yet, so he took them and noticed that his heart rate did not improve. He went to go see his doctor at the [place] who did an EKG and told him to go to the hospital. He admits to feeling fatigued for the last week. He is also been feeling short of breath for the last 3 days with worsening wheezing, cough, and mild sputum production. In the past he usually gets edema when his congestive heart failure worsens, though currently he is denying any lower extremity edema. He admits to feeling like his heart is racing, and that it hurts when he takes deep breaths. He feels like she is constantly taking short small breaths. He denies any numbness or tingling in his arm or jaw. He describes the pain as a pressure metastases worse with deep breaths. (Trey Neff MD R2) Review of Systems Constitutional: COMPLAINS OF: Fatigue, DENIES: Fever, Weight gain, Weight loss , Dizziness, Change in appetite Endocrine: DENIES: Polyuria Eyes: DENIES: Blurred vision, Eye pain, Vision loss, Double Vision Ears, nose, mouth, throat: COMPLAINS OF: Nasal discharge, Throat pain, Hoarseness, Running Nose Respiratory: COMPLAINS OF: Cough, Wheezing, Sputum production, Shortness of breath Cardiovascular: COMPLAINS OF: Chest pain, Palpitations, DENIES: Lower Extremity Edema Gastrointestinal: DENIES: Abdominal pain, Bloody stools, Diarrhea, Nausea, Vomiting Genitourinary: DENIES: Urinary incontinence Musculoskeletal: COMPLAINS OF: Joint pain, Back pain, Neck pain Neurologic: COMPLAINS OF: Headache, DENIES: Seizures, Poor Balance Psychiatric: DENIES: Anxiety, Depression (Trey Neff MD R2) Past Family Social History Past Medical History A Fib CHF Mitral Valve replacement Bacterial Endocarditis CVA Kidney Cancer (Stage 1 large cell carcinoma) Skin Condition Past Surgical History Knee replacement Carotid artery stent Reported Medications Reported Meds & Active Scripts Active Metoprolol Tartrate 25 Mg Tab 25 Mg PO BID Furosemide 40 Mg Tab 40 Mg PO DAILY Finasteride 5 Mg Tab 5 Mg PO HS Coumadin (Warfarin) 5 Mg Tab 2.5 Mg PO MO Take 1/2 tablet (2.5mg) daily on Thursday Tacrolimus Topical 0.1 % Oint 1 Applic TOPICAL DAILY PRN Multi-Vitamin/Minerals (Multiple Vitamins W/ Minerals) 1 Tab Tab 1 Tab PO DAILY Vitamin D3 (Cholecalciferol) 1,000 Unit Tab 1,000 Units PO DAILY Magnesium Oxide 420 Mg Tab 420 Mg PO BID Ultram (Tramadol HCl) 50 Mg Tab 100 Mg PO Q8HR PRN Tylenol (Acetaminophen) 325 Mg Tab 325 Mg PO Q12HR PRN Proscar (Finasteride) 5 Mg Tab 5 Mg PO DAILY Do not crush. Pravachol (Pravastatin) 20 Mg Tab 20 Mg PO HS Omeprazole 20 Mg Tab 20 Mg PO BID Lisinopril 2.5 Mg Tab 2.5 Mg PO DAILY Hibiclens Topical (Chlorhexidine Gluconate) 4% Liq 1 Applic TOPICAL EVERY OTHER DAY Flomax (Tamsulosin HCl) 0.4 Mg Cap 0.4 Mg PO DAILY Coumadin (Warfarin) 5 Mg Tab 5 Mg PO SUTUWETHFRSA Take 1 tablet (5mg) daily on Thursday,Thursday,Thursday,,Thursday and Thursday Colace (Docusate Sodium) 100 Mg Cap 200 Mg PO BID Amitriptyline (Amitriptyline HCl) 10 Mg Tab 10 Mg PO HS Clotrimazole AF Topical (Clotrimazole) 1% Cream 1 Applic TOPICAL BID Potassium Chloride ER (Potassium Chloride) 10 Meq Cap 10 Meq PO BID (Trey Neff MD R2) Allergies: Coded Allergies: Coreg (Verified Allergy, Severe, 04/29/16) Adhesives (Verified Adverse Reaction, Severe, SKIN TEARS, 04/29/16) Hydrocodone (Verified Adverse Reaction, Mild, 04/29/16) REPORTS RED SPOTS ON SKIN AND TINGLING Family History noncontributory Social History Live in [place] in a Mobile Home with his Have pet Maribel [employer] Was in the [place] Former smoker quit 15 year ago Denies alcohol Denies illicit drugs (Trey Neff MD R2) Physical Exam Vital Signs Vital Signs Date Time Temp Pulse Resp B/P Pulse Ox O2 Delivery O2 Flow Rate FiO2 06/26/16 14:22 87 18 107/63 93 Room Air 06/26/16 12:57 135 16 Room Air 06/26/16 12:57 133 16 95 Room Air 06/26/16 12:57 133 133/75 103/66 06/26/16 12:57 95 Room Air 06/26/16 12:48 134 16 133/72 Room Air 06/26/16 12:22 98.6 138 22 134/71 96 Physical Exam GENERAL: Elderly, frail-appearing male, with nasal cannula in place resting comfortably in bed SKIN: No rashes, ecchymoses or lesions. Cool and dry. HEAD: Atraumatic. Normocephalic. No temporal or scalp tenderness. EYES: Pupils equal round and reactive. Extraocular motions intact. No scleral icterus. No injection or drainage. ENT: Nose without bleeding, purulent drainage or septal hematoma. Throat without erythema, tonsillar hypertrophy or exudate. Uvula midline. Airway patent. NECK: Trachea midline. No JVD or lymphadenopathy. Supple, nontender, no meningeal signs. CARDIOVASCULAR: Irregular rate and irregular rhythm. Ranging between 80-90 at time of exam, post diltiazem. 2/6 heart murmur in the mitral region RESPIRATORY: Wheezing noticeable in the lower lobes bilaterally, poor respiratory air flow, necessary muscle use noted. GASTROINTESTINAL: Abdomen soft, non-tender, nondistended. No hepato-splenomegaly , or palpable masses. No guarding. MUSCULOSKELETAL: Extremities without clubbing, cyanosis. 1+ edema. No joint tenderness, effusion, or edema noted. No calf tenderness. Negative Homans sign bilaterally. NEUROLOGICAL: Awake and alert. Cranial nerves II through XII grossly intact. Motor and sensory grossly within normal limits. Normal speech. Laboratory Laboratory Tests Test 06/26/16 12:45 White Blood Count 5.3 Red Blood Count 4.03 Hemoglobin 11.4 Hematocrit 35.9 Mean Corpuscular Volume 89.2 Mean Corpuscular Hemoglobin 28.2 Mean Corpuscular Hemoglobin 31.6 Concent Red Cell Distribution Width 14.3 Platelet Count 167 Mean Platelet Volume 8.3 Neutrophils (%) (Auto) 68.5 Lymphocytes (%) (Auto) 19.0 Monocytes (%) (Auto) 9.0 Eosinophils (%) (Auto) 2.6 Basophils (%) (Auto) 0.9 Neutrophils # (Auto) 3.7 Lymphocytes # (Auto) 1.0 Monocytes # (Auto) 0.5 Eosinophils # (Auto) 0.1 Basophils # (Auto) 0.1 CBC Comment DIFF FINAL Differential Comment Prothrombin Time 13.9 Prothromb Time International 1.2 Ratio Activated Partial 35.4 Thromboplast Time Sodium Level 139 Potassium Level 4.6 Chloride Level 105 Carbon Dioxide Level 31.0 Anion Gap 3 Blood Urea Nitrogen 27 Creatinine 1.60 Estimat Glomerular Filtration 41 Rate Random Glucose 115 Calcium Level 9.1 Magnesium Level 2.4 Total Bilirubin 0.9 Aspartate Amino Transf 23 (AST/SGOT) Alanine Aminotransferase 17 (ALT/SGPT) Alkaline Phosphatase 92 Total Creatine Kinase 55 Troponin I LESS THAN 0.02 B-Type Natriuretic Peptide 67 Total Protein 7.2 Albumin 3.6 (Trey Neff MD R2) Result Diagram: 06/26/16 1245 06/26/16 1245 Imaging Last Impressions Chest X-Ray 06/26/16 1235 Signed Impressions: Service Date/Time: June 12:40 - CONCLUSION: 1. Cardiomegaly. No acute pulmonary disease. Basim Don MD (Trey Neff MD R2) Assessment and Plan Assessment and Plan This 89-year-old male with an extensive past history significant for A. fib, congestive heart failure, coronary artery disease, cardiomyopathy, mitral valve replacement, and GERD. He is being admitted for A. fib with RVR. Code Status DNR Discussed Condition With [facility] Dr. Lopez (Trey Neff MD R2) Attending Attestation THIS CASE WAS DISCUSSED WITH THE RESIDENT PHYSICIANS. I HAVE REVIEWED THE RECORD AND AGREE WITH THE ABOVE NOTE AND PLAN OF CARE WAS DISCUSSED. I HAVE AUTHORIZED THE ORDER FOR ADMISSION TO AN IN-PATIENT STATUS. (Kee Lopez MD) Problem List: (1) Atrial fibrillation with rapid ventricular response Status: Acute Plan: EKG showing A. fib. Patient is on metoprolol, reports that his doctor was in the process of increasing it however had not done so yet. * Admitted to inpatient * Cardiology consulted, recommendations appreciated * Placed on telemetry * Diltiazem drip * Plan to transition back to metoprolol * Pain control with tramadol * Morphine for chest pain * Continue his warfarin, currently subtherapeutic though he reports usually being therapeutic * Trending troponins and CK-MB * Trending EKG * TSH ordered * CBC, CMP ordered for the a.m. (2) Chronic kidney disease Status: Chronic Plan: Patient has chronic kidney disease. Current creatinine is 1.6 which is consistent with previous studies. Currently not on dialysis. * IV fluids at maintenance NS at 125 MLS per hour * Monitor creatinine (3) Hypertension Status: Chronic Plan: Long-standing history of hypertension * Continue lisinopril 2.5 mg by mouth daily * Continue Lasix at 40 mg daily * Clonidine when necessary per elevated blood pressure protocol (4) CHF (congestive heart failure) Status: Chronic Plan: Long-standing history of congestive heart failure. BNP is 67. No worsening edema at this time. Chest x-ray shows cardiomegaly, with no acute pulmonary disease or congestion * Monitor at this time * Continue Lasix (5) Nutrition, metabolism, and development symptoms Status: Acute Plan: Diet: Heart healthy diet Fluids: IV fluids at 125 MLS per hour Vitals per diltiazem protocol Monitor electrolytes replace accordingly Monitor I's and O's Activity bedrest with bathroom privileges DVT prophylaxis with SCDs and Lovenox renally dosed GI prophylaxis with Protonix CODE STATUS: DNR Disposition: Pending control of A. fib and cardiology recommendations (Trey Neff MD R2) Physician Certification 2 Midnight Certification Type: Admission for Inpatient Services Order for Inpatient Services The services are ordered in accordance with Medicare regulations or non- Medicare payer requirements, as applicable. In the case of services not specified as inpatient-only, they are appropriately provided as inpatient services in accordance with the 2-midnight benchmark. Estimated LOS (days): 3 days is the estimated time the patient will need to remain in the hospital, assuming treatment plan goals are met and no additional complications. Post-Hospital Plan: Home (Trey Neff MD R2) Trey Neff MD R2 June 26, 2016 14:52 Kee Lopez MD June 27, 2016 13:13
[2016-06-26] MEDS ORDERED: traMADol HCL 50 MG TAB PO PRN (15:30)
[2016-06-26] MEDS ORDERED: SODIUM CHLORIDE 0.9% FLUSH 10 ML FLUSH IV FLUSH PRN (15:30)
[2016-06-26] MEDS ORDERED: ACETAMINOPHEN 325 MG TAB PO PRN (15:30)
[2016-06-26] MEDS ORDERED: PILL SPLITTER OTHER PRN (15:45)
[2016-06-26] MEDS ORDERED: ONDANSETRON HCL 4 MG/2 ML VIAL IV PUSH PRN (16:15)
[2016-06-26] MEDS ORDERED: SODIUM CHLOR 0.9% 1000 ML INJ 1,000 ML IV SCH (16:15)
[2016-06-26] MEDS ORDERED: MORPHINE SULFATE 4 MG/ML INJ IV PUSH PRN (16:15)
[2016-06-26] MEDS: WARFARIN SOD 5 MG TAB PO SCH (16:28)
[2016-06-26] MEDS: ENOXAPARIN SODIUM 30 MG/0.3 ML SYRINGE SQ SCH (16:30)
--- NOTE | 2016-06-26 19:26 | MB ---
cc: [facility] SEE DATE OF CONSULTATION: 06/26/2016 INDICATION Atrial fibrillation. HISTORY OF PRESENT ILLNESS An 89-year-old gentleman who has a history of known atrial fibrillation on anticoagulation in addition to prior congestive heart failure, coronary disease, cardiomyopathy, mitral valve replacement who presented to the emergency department upon referral from the [place] secondary to atrial fibrillation with rapid ventricular rate. He has been talking with his outpatient doctor and they had spoken about possibly going up on his beta-zacarias but had not done so. He has been having some shortness of breath over the course of the past few days with wheezing, cough and sputum production. When he came in to the emergency department he was noted to be in a rapid rate, started on Cardizem and admitted to the floor. His heart rates now are much better controlled, he is in the 70 beats per minute range, still in atrial fibrillation. He states that he is permanently in atrial fibrillation and he is now comfortable. He has no staff developer. PAST MEDICAL HISTORY 1. Atrial fibrillation. 2. Congestive heart failure. 3. Mitral valve replacement. 4. Prior history of bacterial endocarditis. 5. Stroke. 6. Kidney cancer. 7. Asthma. MEDICATIONS 1. Metoprolol 25 mg b.i.d. 2. Furosemide 40 mg a day. 3. Coumadin. 4. Multivitamin. 5. Proscar. 6. Pravachol. 7. Omeprazole. 8. Lisinopril. 9. Hibiclens. 10. Flomax. 11. Amitriptyline. ALLERGIES COREG, ADHESIVES, HYDROCODONE. FAMILY HISTORY Denies any family history of early coronary artery disease or sudden cardiac . SOCIAL HISTORY Quit smoking 15 years ago. Denies alcohol or drug use. PHYSICAL EXAMINATION VITAL SIGNS: Temperature 98, pulse 78, blood pressure 118/74 mmHg. GENERAL: Alert and oriented x3, in no acute distress. HEAD, EYES, EARS, NOSE AND THROAT: Pupils reactive to light and accommodation. Extraocular movements are intact. NECK: No elevation of jugular venous distention. No thyromegaly. No lymphadenopathy. No carotid bruits. LUNGS: Clear to auscultation bilaterally. CARDIOVASCULAR: Irregular, irregular rhythm. A 1/6 systolic murmur left sternal border. ABDOMEN: Nontender, nondistended. Good bowel sounds. No hepatosplenomegaly. EXTREMITIES: No clubbing, cyanosis or edema. Good peripheral pulses. NEUROLOGIC: Cranial nerves intact. Motor and sensory grossly intact. LABORATORY DATA WBC 5.3, hemoglobin is 11.4, platelet count 167, INR is 1.2, sodium 139, potassium 4.6, BUN is 27, creatinine is 1.6, troponin is negative. ASSESSMENT 1. Atrial fibrillation with rapid ventricular rate. 2. Mitral valve replacement, coronary disease, congestive heart failure, cardiomyopathy. PLAN I suspect that his rapid ventricular rate is secondary to increased adrenergic tone related to his shortness of breath and possible infection. He seems to be well-compensated from a congestive heart failure standpoint, BNP 67, lungs are clear. We will increase metoprolol to 50 mg twice a day and discontinue the lisinopril to allow a little bit more blood pressure. He is already on anticoagulation. Once his respiratory status improves, he will be back to his baseline. We will sign off. [facility] MD NORMAN Bonds/ANISH /6:14 PM /7:05 PM
[2016-06-26 21:22] LABS: MAGNESIUM 2.3 MG/DL (1.5-2.5)
[2016-06-26 21:23] LABS: CREATINE KINASE 50 U/L (39-308)
[2016-06-26] MEDS: METOPROLOL TARTRATE 50 MG TAB PO SCH (22:03)
[2016-06-26] MEDS: POTASSIUM CHLORIDE 10 MEQ CAP PO SCH (22:03)
[2016-06-26] MEDS: PRAVASTATIN SOD 20 MG TAB PO SCH (22:03)
[2016-06-26] MEDS: DOCUSATE SODIUM 100 MG CAP PO SCH (22:04)
[2016-06-26] MEDS: PANTOPRAZOLE SOD 20 MG DELAYED RELEASE TAB PO SCH (22:04)
[2016-06-26] MEDS: FINASTERIDE 5 MG TAB PO SCH (22:04)
[2016-06-26] MEDS: AMITRIPTYLINE HCL 10 MG TAB PO SCH (22:04)
[2016-06-26] MEDS: SODIUM CHLORIDE 0.9% FLUSH 10 ML FLUSH IV FLUSH SCH (22:05)
[2016-06-26] MEDS: traMADol HCL 50 MG TAB PO PRN (22:20)
[2016-06-27] VITALS (10 sets, daily range): BP systolic 123–140; BP diastolic 58–86; PULSE 62–100; RESP 17–20; TEMP 97.6–98.4; O2SAT 95–100
[2016-06-27 01:09] LABS: CREATINE KINASE 42 U/L (39-308)
[2016-06-27] MEDS: METOPROLOL TARTRATE 50 MG TAB PO SCH ×2 (08:29→20:44)
[2016-06-27] MEDS: FUROSEMIDE 40 MG TAB PO SCH (08:29)
[2016-06-27] MEDS: POTASSIUM CHLORIDE 10 MEQ CAP PO SCH ×2 (08:30→20:44)
[2016-06-27] MEDS: PANTOPRAZOLE SOD 20 MG DELAYED RELEASE TAB PO SCH ×2 (08:30→20:44)
[2016-06-27] MEDS: DOCUSATE SODIUM 100 MG CAP PO SCH ×2 (08:30→20:44)
[2016-06-27] MEDS: SODIUM CHLORIDE 0.9% FLUSH 10 ML FLUSH IV FLUSH SCH ×2 (08:31→20:44)
[2016-06-27] MEDS ORDERED: LISINOPRIL 5 MG TAB PO SCH (09:00)
--- NOTE | 2016-06-27 09:08 | HHI.FPPN ---
Subjective Remarks FM Attending Note: Patient seen and examined. S: Chart and all resident physician notes reviewed. In summary this is a 89 year old male who was admitted with an admission diagnosis of Atrial Fibrillation With Rvr, Ckd, Cardiomyopathy. This patient has a past history of A. fib, congestive heart failure, coronary artery disease, cardiomyopathy, mitral valve replacement, and GERD. He normally receives his general medical care at the [facility]. The patient came to the hospital due to chest discomfort associated with a rapid heartbeat. He had noted some increasing fatigue over the last week. This patient lives in a private home in [place] with his . From his description he is independent in his basic activities of daily living. His assists him in meeting his instrumental activities of daily living and she is the cryogenic transport driver of the household. The patient notes that he does walk around his home with a walker although the distance that he is able to walk is somewhat limited due to fatigue and shortness of breath. This has been a chronic problem. This patient was seen by cardiology this morning with the recommendation that his metoprolol dose be increased to help control his ventricular response from his atrial fibrillation. Objective Vitals Vital Signs Date Time Temp Pulse Resp B/P Pulse Ox O2 Delivery O2 Flow Rate FiO2 06/27/16 08:00 97.6 65 18 138/86 97 06/27/16 04:00 98.4 100 17 124/58 95 06/27/16 00:00 98.2 68 18 132/78 96 06/26/16 19:15 88 06/26/16 19:15 88 06/26/16 19:00 97.1 98 17 133/69 97 06/26/16 16:57 78 16 118/74 95 06/26/16 16:00 98.0 99 18 118/65 94 06/26/16 15:45 84 96 Room Air 06/26/16 14:22 87 18 107/63 93 Room Air 06/26/16 12:57 135 16 Room Air 06/26/16 12:57 133 16 95 Room Air 06/26/16 12:57 133 133/75 103/66 06/26/16 12:57 95 Room Air 06/26/16 12:48 134 16 133/72 Room Air 06/26/16 12:22 98.6 138 22 134/71 96 I/O 5/18/17 5/06/26/16 06/27/16 06/27/16 06/27/16 07:00 15:00 23:00 07:00 15:00 23:00 Intake Total 480 ml 200 ml Output Total 700 ml Balance -220 ml 200 ml Intake Oral 480 ml 200 ml Output Urine Total 700 ml # Voids 4 2 # Bowel Movements 0 0 Result Diagram: 06/26/16 1245 06/26/16 1245 Other Results Serial troponin I levels were low. He had a brain natriuretic peptide done which was 67. His TSH was 1.2. Imaging Last 48 hours Impressions Chest X-Ray 06/26/16 1235 Signed Impressions: Service Date/Time: June 12:40 - CONCLUSION: 1. Cardiomegaly. No acute pulmonary disease. Basim Don MD Objective Remarks O. CONSTITUTIONAL/GEN: normally nourished, in NAD. EYES: conjunctiva normal, PERRLA, EOMI. ENT: Mouth and pharynx normal. NECK: thyroid midline, carotids symmetrical. LUNGS: clear A-P, respiratory effort is normal. CARDIOVASCULAR: RR with a controlled rate. No significant edema. GI/ABD: soft without masses, without organomegaly. NEURO: No focal deficits. SKIN: color normal, no rashes noted. HEME/LYMPH: no bruising, petechia or significant adenopathy MUSC: back is normal in appearance. Extremities are normal in appearance. PSYCH/MENTAL STATUS: Alert and oriented x 3. A/P Assessment and Plan This 89-year-old male with an extensive past history significant for A. fib, congestive heart failure, coronary artery disease, cardiomyopathy, mitral valve replacement, and GERD. He is being admitted for A. fib with RVR. Problem List: (1) Atrial fibrillation with rapid ventricular response Status: Acute Plan: EKG showing A. fib. Patient is on metoprolol, reports that his doctor was in the process of increasing it however had not done so yet. * Admitted to inpatient * Cardiology consulted, recommendations appreciated * Placed on telemetry * Diltiazem drip * Plan to transition back to metoprolol * Pain control with tramadol * Morphine for chest pain * Continue his warfarin, currently subtherapeutic though he reports usually being therapeutic * Trending troponins and CK-MB * Trending EKG * TSH ordered * CBC, CMP ordered for the a.m. 06/27/16 Cardiology has evaluated the patient and recommended that his dose of metoprolol be increased to control the ventricular response from his atrial fibrillation. Will ask PT to evaluate the patient. Will encourage him to be up ambulating with his walker today to observe telemetry response to activity. We'll otherwise plan to keep him on his current medications. (2) Chronic kidney disease Status: Chronic Plan: Patient has chronic kidney disease. Current creatinine is 1.6 which is consistent with previous studies. Currently not on dialysis. * IV fluids at maintenance NS at 125 MLS per hour * Monitor creatinine (3) Hypertension Status: Chronic Plan: Long-standing history of hypertension * Continue lisinopril 2.5 mg by mouth daily * Continue Lasix at 40 mg daily * Clonidine when necessary per elevated blood pressure protocol (4) CHF (congestive heart failure) Status: Chronic Plan: Long-standing history of congestive heart failure. BNP is 67. No worsening edema at this time. Chest x-ray shows cardiomegaly, with no acute pulmonary disease or congestion * Monitor at this time * Continue Lasix 06/27/16 Normal BNP value would suggest that his CHF is currently controlled. (5) Nutrition, metabolism, and development symptoms Status: Acute Plan: Diet: Heart healthy diet Fluids: IV fluids at 125 MLS per hour Vitals per diltiazem protocol Monitor electrolytes replace accordingly Monitor I's and O's Activity bedrest with bathroom privileges DVT prophylaxis with SCDs and Lovenox renally dosed GI prophylaxis with Protonix CODE STATUS: DNR Disposition: Pending control of A. fib and cardiology recommendations Kee Lopez MD June 27, 2016 09:08
[2016-06-27] MEDS ORDERED: RESP: ALBUTEROL 2.5 MG/IPRATROPIUM 0.5 MG NEB (PRN) NEB (09:30)
[2016-06-27] MEDS: traMADol HCL 50 MG TAB PO PRN ×2 (09:31→20:43)
[2016-06-27 11:48] LABS: HEMATOCRIT 36.8 % (39.0-51.0); MEAN CELL VOLUME 89.4 FL (80.0-100.0); MEAN CORPUSCULAR HEMOGLOBIN 28.4 PG (27.0-34.0); MEAN CORPUSCULAR HGB CONC 31.8 % (32.0-36.0); PLATELET COUNT 158 TH/MM3 (150-450); RED BLOOD COUNT 4.11 MIL/MM3 (4.50-5.90); RED CELL DISTRIBUTION WIDTH 14.6 % (11.6-17.2); REVIEW FLAG FINAL; WHITE BLOOD COUNT 5.3 TH/MM3 (4.0-11.0)
[2016-06-27 11:54] LABS: INTERNATIONAL NORMALIZED RATIO 1.2 RATIO; PROTHROMBIN TIME - PATIENT 13.3 SEC (9.8-11.6)
[2016-06-27 12:09] LABS: BICARBONATE 33.2 MEQ/L (21.0-32.0)
[2016-06-27] MEDS: ENOXAPARIN SODIUM 30 MG/0.3 ML SYRINGE SQ SCH (16:00)
[2016-06-27] MEDS: WARFARIN SOD 5 MG TAB PO SCH (16:00)
[2016-06-27] MEDS: NYSTAT/DIPHENHY/LIDO MOUTHWASH (Adult) 120ML SWISH-SWAL SCH ×2 (18:00→20:45)
[2016-06-27] MEDS: FINASTERIDE 5 MG TAB PO SCH (20:43)
[2016-06-27] MEDS: PRAVASTATIN SOD 20 MG TAB PO SCH (20:44)
[2016-06-27] MEDS: AMITRIPTYLINE HCL 10 MG TAB PO SCH (20:44)
--- NOTE | 2016-06-27 21:38 | EKG ---
Date Performed: 06/26/2016 Time Performed: 19:07:07 PTAGE: 89 years EKG: ATRIAL FLUTTER/TACHYCARDIA ABNORMAL RHYTHM ECG PREVIOUS TRACING : 06/26/2016 14.29 Compared to prior tracing no significant change DOCTOR: Ady Santiago Interpretating Date/Time 06/27/2016 21:35:54
--- NOTE | 2016-06-27 21:47 | EKG ---
Date Performed: 06/26/2016 Time Performed: 14:29:47 PTAGE: 89 years EKG: ATRIAL FLUTTER/TACHYCARDIA NONSPECIFIC T-WAVE ABNORMALITY ABNORMAL RHYTHM ECG PREVIOUS TRACING : 06/26/2016 13.19 Compared to prior tracing no significant change DOCTOR: Ady Santiago Interpretating Date/Time 06/27/2016 21:46:54
--- NOTE | 2016-06-27 21:53 | EKG ---
Date Performed: 06/26/2016 Time Performed: 13:19:55 PTAGE: 89 years EKG: ATRIAL FIBRILLATION WITH RAPID VENTRICULAR RESPONSE NONSPECIFIC T-WAVE ABNORMALITY ABNORMAL RHYTHM ECG NO PREVIOUS TRACING DOCTOR: Ady Santiago Interpretating Date/Time 06/27/2016 21:52:01
[2016-06-28 00:53] VITALS: BP 142/78; PULSE 78; RESP 22; TEMP 97.4; O2SAT 98
[2016-06-28 04:33] VITALS: BP 111/88; PULSE 84; RESP 22; TEMP 97.5; O2SAT 94
[2016-06-28 06:16] LABS: HEMATOCRIT 36.8 % (39.0-51.0); MEAN CELL VOLUME 89.6 FL (80.0-100.0); MEAN CORPUSCULAR HEMOGLOBIN 28.5 PG (27.0-34.0); MEAN CORPUSCULAR HGB CONC 31.8 % (32.0-36.0); PLATELET COUNT 153 TH/MM3 (150-450); RED CELL DISTRIBUTION WIDTH 14.6 % (11.6-17.2); REVIEW FLAG FINAL; WHITE BLOOD COUNT 5.4 TH/MM3 (4.0-11.0)
[2016-06-28 06:26] LABS: INTERNATIONAL NORMALIZED RATIO 1.3 RATIO; PROTHROMBIN TIME - PATIENT 14.4 SEC (9.8-11.6)
[2016-06-28 06:39] LABS: BICARBONATE 32.4 MEQ/L (21.0-32.0); POTASSIUM 4.7 MEQ/L (3.5-5.1)
--- NOTE | 2016-06-28 07:05 | HHI.FPPN ---
Subjective Remarks Patient states that he feels better this morning. Denies chest pain or shortness of breath. He did have some nausea after taking medications but denies vomiting or abdominal pain. He wants to go home. (Savanna Patterson MD R1) Objective Vitals Vital Signs Date Time Temp Pulse Resp B/P Pulse Ox O2 Delivery O2 Flow Rate FiO2 06/28/16 04:33 97.5 84 22 111/88 94 06/28/16 00:53 97.4 78 22 142/78 98 06/27/16 22:40 98.4 72 20 123/62 97 06/27/16 20:00 66 06/27/16 17:24 98 21 06/27/16 16:00 97.9 64 18 126/74 98 06/27/16 12:00 97.6 62 20 140/82 97 06/27/16 11:42 100 21 06/27/16 11:30 16 06/27/16 09:00 66 06/27/16 08:00 97.6 65 18 138/86 97 I/O 06/27/16 06/27/16 06/27/16 06/28/16 06/28/16 06/28/16 07:00 15:00 23:00 07:00 15:00 23:00 Intake Total 200 ml 480 ml 720 ml 480 ml Output Total 3 ml 500 ml 1400 ml Balance 200 ml 477 ml 220 ml -920 ml Intake Oral 200 ml 480 ml 720 ml 480 ml Output Urine Total 3 ml 500 ml 1400 ml # Voids 2 # Bowel Movements 0 2 1 (Savanna Patterson MD R1) Result Diagram: 06/28/16 0552 06/28/16 0552 Objective Remarks O. CONSTITUTIONAL/GEN: normally nourished, in NAD. EYES: conjunctiva normal, PERRLA, EOMI. ENT: Mouth and pharynx normal. NECK: thyroid midline, carotids symmetrical. LUNGS: Bilateral expiratory wheezing, respiratory effort is normal. CARDIOVASCULAR: RR with a controlled rate. No significant edema. GI/ABD: soft without masses, without organomegaly. NEURO: No focal deficits. SKIN: color normal, no rashes noted. HEME/LYMPH: no bruising, petechia or significant adenopathy MUSC: back is normal in appearance. Extremities are normal in appearance. PSYCH/MENTAL STATUS: Alert and oriented x 3. (Eko,Savanna U MD R1) A/P Assessment and Plan This 89-year-old male with an extensive past history significant for A. fib, congestive heart failure, coronary artery disease, cardiomyopathy, mitral valve replacement, and GERD. He was admitted for A. fib with RVR and cardiology was consulted. Recommended discontinuing lisinopril and increase in his dose of metoprolol to 50 mg twice a day. He is currently in controlled rate. Discussed with Dr. Lopez Discharge Planning Pending cardiology recommendations (Savanna Patterson MD R1) Attending Attestation Case reviewed and discussed with the resident team. Agree with plan of care as discussed with me and documented in the resident note. (Kee Lopez MD) Problem List: (1) Atrial fibrillation with rapid ventricular response Status: Acute Plan: EKG showing A. fib. Patient is on metoprolol, reports that his doctor was in the process of increasing it however had not done so yet. * Admitted to inpatient * Cardiology consulted, recommendations appreciated * Placed on telemetry * Diltiazem drip - currently discontinued discontinued * The patient on metoprolol at increased dose of 50 mg every 12 * Pain control with tramadol * Morphine for chest pain * Continue his warfarin, currently subtherapeutic at 1.3 on 06/28 though he reports usually being therapeutic - pharmacy consulted to assist with warfarin management * TSH within normal limits * PT consult - encourage ambulation with walker (2) Chronic kidney disease Status: Chronic Plan: Patient has chronic kidney disease. Current creatinine is 1.6 which is consistent with previous studies. Currently not on dialysis. * Senior oral fluids * Monitor creatinine (3) Hypertension Status: Chronic Plan: Long-standing history of hypertension * Continue Lasix at 40 mg daily * Clonidine when necessary per elevated blood pressure protocol (4) CHF (congestive heart failure) Status: Chronic Plan: Long-standing history of congestive heart failure. BNP is 67. No worsening edema at this time. Chest x-ray shows cardiomegaly, with no acute pulmonary disease or congestion * Monitor at this time * Continue Lasix 06/27/16 Normal BNP value would suggest that his CHF is currently controlled. (5) Nutrition, metabolism, and development symptoms Status: Acute Plan: Diet: Heart healthy diet Fluids: Oral fluids Monitor electrolytes replace accordingly Monitor I's and O's Activity out of bed with assistance DVT prophylaxis with SCDs, Lovenox renally dose, and warfarin GI prophylaxis with Protonix CODE STATUS: DNR Disposition: Pending control of A. fib and cardiology recommendations (Savanna Patterson MD R1) Savanna Patterson MD R1 June 28, 2016 07:05 Kee Lpoez MD June 30, 2016 09:09
[2016-06-28 07:35] VITALS: O2SAT 92
[2016-06-28 08:00] VITALS: BP 125/76; PULSE 104; RESP 22; TEMP 97.2; O2SAT 97
[2016-06-28] MEDS: FUROSEMIDE 40 MG TAB PO SCH (09:08)
[2016-06-28] MEDS: SODIUM CHLORIDE 0.9% FLUSH 10 ML FLUSH IV FLUSH SCH (09:08)
[2016-06-28] MEDS: METOPROLOL TARTRATE 50 MG TAB PO SCH (09:08)
[2016-06-28] MEDS: POTASSIUM CHLORIDE 10 MEQ CAP PO SCH (09:08)
[2016-06-28] MEDS: PANTOPRAZOLE SOD 20 MG DELAYED RELEASE TAB PO SCH (09:08)
[2016-06-28] MEDS: traMADol HCL 50 MG TAB PO PRN (09:09)
[2016-06-28] MEDS: NYSTAT/DIPHENHY/LIDO MOUTHWASH (Adult) 120ML SWISH-SWAL SCH ×2 (09:09→15:18)
[2016-06-28] MEDS: DOCUSATE SODIUM 100 MG CAP PO SCH (09:14)
[2016-06-28 09:19] VITALS: PULSE 64; PULSE 84
[2016-06-28 12:00] VITALS: BP 123/57; PULSE 64; RESP 20; TEMP 97.4; O2SAT 97
[2016-06-28] MEDS ORDERED: RESP: ALBUTEROL 2.5 MG/IPRATROPIUM 0.5 MG NEB (SCH) NEB (12:00)
[2016-06-28] MEDS ORDERED: COUM5TAB PO (14:12)
[2016-06-28] MEDS ORDERED: METO-309 PO (14:12)
--- NOTE | 2016-06-28 14:16 | HHI.DCPOC ---
Discharge Care Plan Diagnosis: (1) Atrial fibrillation with rapid ventricular response (2) Hypertension (3) CHF (congestive heart failure) Goals to Promote Your Health * To prevent worsening of your condition and complications * To maintain your health at the optimal level Directions to Meet Your Goals Take your medications as prescribed Follow your dietary instruction Follow activity as directed Keep your appointments as scheduled Take your immunizations and boosters as scheduled If your symptoms worsen call your PCP, if no PCP go to Urgent Care Center or Emergency Room Smoking is Dangerous to Your Health. Avoid second hand smoke Call the 24-hour hour crisis hotline for domestic abuse at Savanna Patterson MD R1 June 28, 2016 14:16
--- NOTE | 2016-06-28 14:35 | HHI.DS ---
Discharge Summary Admission Date June 26, 2016 at 14:30 Discharge Date: June 28, 2016 Admitting Diagnosis atrial fibrillation with rvr, ckd, cardiomyopathy, chronic back pain (1) Atrial fibrillation with rapid ventricular response Diagnosis: Principal (2) Chronic kidney disease Diagnosis: Secondary (3) Hypertension Diagnosis: Secondary (4) CHF (congestive heart failure) Diagnosis: Secondary Brief History History mostly obtained from This 89-year-old male with an extensive past history significant for A. fib, congestive heart failure, coronary artery disease, cardiomyopathy, mitral valve replacement, and GERD. He's coming to the hospital today due to chest pain and shortness of breath. He gets rehabilitation frequently at home, and was having a rehabilitation session today. The rehabilitation nurse noticed that his heart rate was 144. He admits that he hadn't taken his meds yet, so he took them and noticed that his heart rate did not improve. He went to go see his doctor at the [facility] who did an EKG and told him to go to the hospital. He admits to feeling fatigued for the last week. He is also been feeling short of breath for the last 3 days with worsening wheezing, cough, and mild sputum production. In the past he usually gets edema when his congestive heart failure worsens, though currently he is denying any lower extremity edema. He admits to feeling like his heart is racing, and that it hurts when he takes deep breaths. He feels like she is constantly taking short small breaths. He denies any numbness or tingling in his arm or jaw. He describes the pain as a pressure metastases worse with deep breaths. CBC/BMP: 06/28/16 0552 06/28/16 0552 Significant Findings Laboratory Tests Test 06/26/16 06/26/16 06/27/16 06/27/16 12:45 20:13 00:10 11:28 Red Blood Count 4.03 MIL/MM3 4.11 MIL/MM3 (4.50-5.90) (4.50-5.90) Hemoglobin 11.4 GM/DL 11.7 GM/DL (13.0-17.0) (13.0-17.0) Hematocrit 35.9 % 36.8 % (39.0-51.0) (39.0-51.0) Mean Corpuscular Hemoglobin 31.6 % 31.8 % Concent (32.0-36.0) (32.0-36.0) Monocytes (%) (Auto) 9.0 % (0.0-8.0) Prothrombin Time 13.9 SEC 13.3 SEC (9.8-11.6) (9.8-11.6) Activated Partial 35.4 SEC Thromboplast Time (24.3-30.1) Anion Gap 3 MEQ/L (5-15) 4 MEQ/L (5-15) Blood Urea Nitrogen 27 MG/DL (7-18) 28 MG/DL (7-18) Creatinine 1.60 MG/DL 1.45 MG/DL (0.60-1.30) (0.60-1.30) Estimat Glomerular Filtration 41 ML/MIN (>89) 46 ML/MIN (>89) Rate Random Glucose 115 MG/DL (74-106) Troponin I LESS THAN 0.02 LESS THAN 0.02 LESS THAN 0.02 NG/ML NG/ML NG/ML (0.02-0.05) (0.02-0.05) (0.02-0.05) Carbon Dioxide Level 33.2 MEQ/L (21.0-32.0) Test 06/28/16 05:52 Red Blood Count 4.10 MIL/MM3 (4.50-5.90) Hemoglobin 11.7 GM/DL (13.0-17.0) Hematocrit 36.8 % (39.0-51.0) Mean Corpuscular Hemoglobin 31.8 % Concent (32.0-36.0) Prothrombin Time 14.4 SEC (9.8-11.6) Carbon Dioxide Level 32.4 MEQ/L (21.0-32.0) Blood Urea Nitrogen 30 MG/DL (7-18) Creatinine 1.61 MG/DL (0.60-1.30) Estimat Glomerular Filtration 41 ML/MIN (>89) Rate Imaging Last 72 hours Impressions Chest X-Ray 06/26/16 0735 Signed Impressions: Service Date/Time: June 12:40 - CONCLUSION: 1. Cardiomegaly. No acute pulmonary disease. Basim Don MD PE at Discharge O. CONSTITUTIONAL/GEN: normally nourished, in NAD. EYES: conjunctiva normal, PERRLA, EOMI. ENT: Mouth and pharynx normal. NECK: thyroid midline, carotids symmetrical. LUNGS: Bilateral expiratory wheezing, respiratory effort is normal. CARDIOVASCULAR: RR with a controlled rate. No significant edema. GI/ABD: soft without masses, without organomegaly. NEURO: No focal deficits. SKIN: color normal, no rashes noted. HEME/LYMPH: no bruising, petechia or significant adenopathy MUSC: back is normal in appearance. Extremities are normal in appearance. PSYCH/MENTAL STATUS: Alert and oriented x 3. Hospital Course This 89-year-old male with an extensive past history significant for A. fib, congestive heart failure, coronary artery disease, cardiomyopathy, mitral valve replacement, and GERD was admitted for A. fib with RVR. A Cardizem drip was started for rate control of A. fib Cardiology was consulted and recommended discontinuing lisinopril and increasing his dose of metoprolol to 50 mg twice a day. He improved clinically and his rate was well controlled. He was discharged home in stable condition. Please see the discharge medication documentation for more information on medication changes during this admission, if any. Pt Condition on Discharge: Stable Discharge Disposition: Discharge Home Discharge Instructions DIET: Follow Instructions for: Heart Healthy Diet Activities you can perform: Weight Bearing as [place] Follow up Referrals: Cardiology - 2 Weeks PCP Follow-up - 1 Week New Orders: PT/INR - 06/30/16 New Medications: Metoprolol Tartrate (Lopressor) 50 Mg Tab 50 MG PO Q12HR #60 TAB Warfarin (Coumadin) 5 Mg Tab 5 MG PO DAILY@1600 #30 TAB Continued Medications: Acetaminophen (Tylenol) 325 Mg Tab 325 MG PO Q12HR PRN PAIN SCALE 1 TO 10 #30 Ref 0 TAB Amitriptyline (Amitriptyline) 10 Mg Tab 10 MG PO HS Control Depression #30 Ref 0 TAB Chlorhexidine Gluconate Topical (Hibiclens Topical) 4% Liq 1 APPLIC TOPICAL EVERY OTHER DAY Skin Cleanser #118 Ref 0 ML Cholecalciferol (Vitamin D3) 1,000 Unit Tab 1000 UNITS PO DAILY Nutritional Supplement #1 Ref 0 BOTTLE Clotrimazole Topical (Clotrimazole AF Topical) 1% Cream 1 APPLIC TOPICAL BID Infection #15 Ref 0 GM Docusate Sodium (Colace) 100 Mg Cap 200 MG PO BID #60 Ref 0 CAP Finasteride (Proscar) 5 Mg Tab 5 MG PO DAILY Do not crush. Manage Prostate Problems #30 Ref 0 TAB Finasteride (Finasteride) 5 Mg Tab 5 MG PO HS #30 TAB Furosemide (Furosemide) 40 Mg Tab 40 MG PO DAILY #30 Ref 0 TAB Lisinopril (Lisinopril) 2.5 Mg Tab 2.5 MG PO DAILY #30 Ref 0 TAB Magnesium Oxide (Magnesium Oxide) 420 Mg Tab 420 MG PO BID #60 TAB Multiple Vitamins W/ Minerals (Multi-Vitamin/Minerals) 1 Tab Tab 1 TAB PO DAILY #30 TAB Omeprazole (Omeprazole) 20 Mg Tab 20 MG PO BID #30 Ref 0 TAB Potassium Chloride ER (Potassium Chloride ER) 10 Meq Cap 10 MEQ PO BID Electrolyte Replacement #60 Ref 0 CAP Pravastatin (Pravachol) 20 Mg Tab 20 MG PO HS Cholesterol Management #30 Ref 0 TAB Tacrolimus Topical (Tacrolimus Topical) 0.1 % Oint 1 APPLIC TOPICAL DAILY PRN DERMATITIS #1 Ref 0 GM Tamsulosin (Flomax) 0.4 Mg Cap 0.4 MG PO DAILY Manage Prostate Problems #30 Ref 0 CAP Tramadol (Ultram) 50 Mg Tab 100 MG PO Q8HR PRN PAIN #90 Ref 0 TAB Discontinued Medications: Metoprolol Tartrate (Metoprolol Tartrate) 25 Mg Tab 25 MG PO BID #60 Ref 0 TAB Warfarin (Coumadin) 5 Mg Tab 5 MG PO SUTUWETHFRSA Take 1 tablet (5mg) daily on Thursday,Thursday,Thursday, ,Thursday and Thursday Blood Clot Prevention #30 Ref 0 TAB Warfarin (Coumadin) 5 Mg Tab 2.5 MG PO MO Take 1/2 tablet (2.5mg) daily on Thursday Blood Clot Prevention #30 Ref 0 TAB Savanna Patterson MD R1 June 28, 2016 14:35
--- NOTE | 2016-06-28 15:14 | HHI.FF ---
Face to Face Verification Diagnosis: (1) Hypertension (2) Chronic kidney disease (3) Atrial fibrillation with rapid ventricular response (4) CHF (congestive heart failure) (5) Atrial fibrillation Physical Therapy Order: Evaluate and Treat, Improve ambulation, Strength and gait training Home Health Nursing Order: Medical education Signs/symptoms of disease process Medication education-adverse effect Nursing assessment with vital signs Instructions: Check PT/INR on Thursday06/30/16 I have seen patient Cristiano West on 06/28/16. My clinical findings support the need for the requested home health care services because: Ltd mobility - disease progression Med compliance is questionable Limited ability to care for self I certify that my clinical findings support that this patient is homebound because: Impaired cognitive ability/safety Unsteady gait/balance Poor cardiac reserve EkoSavanna MD R1 June 28, 2016 15:14
[2016-06-28] MEDS: ENOXAPARIN SODIUM 30 MG/0.3 ML SYRINGE SQ SCH (15:17)
[2016-06-28] MEDS ORDERED: WARFARIN SOD 2.5 MG TAB PO ONE (16:00)
[2016-06-28] MEDS ORDERED: WARFARIN SOD 5 MG TAB PO ONE (16:00)
[2016-06-28] MEDS: WARFARIN SOD 5 MG TAB PO SCH (16:14)
== END 2016-06-28 16:37 | disposition home or self-care (01) | DRG 309 ==
LOC: NEPE 12:20 → NEDA 14:30 → N04A 17:00
PROVIDERS: ADMIT Family Medicine; ATTEND Family Medicine
DX: I48.91 Unspecified atrial fibrillation (principal); I13.0 Hypertensive heart and chronic kidney disease with heart failure and stage 1 through stage 4 chronic kidney disease, or unspecified chronic kidney disease; I50.9 Heart failure, unspecified; I42.9 Cardiomyopathy, unspecified; D64.9 Anemia, unspecified; N18.9 Chronic kidney disease, unspecified; E78.00 Pure hypercholesterolemia, unspecified; G89.29 Other chronic pain; I25.10 Atherosclerotic heart disease of native coronary artery without angina pectoris; J45.909 Unspecified asthma, uncomplicated; K21.9 Gastro-esophageal reflux disease without esophagitis; H91.90 Unspecified hearing loss, unspecified ear; Z66 Do not resuscitate; Z79.01 Long term (current) use of anticoagulants; Z85.528 Personal history of other malignant neoplasm of kidney; Z86.73 Personal history of transient ischemic attack (TIA), and cerebral infarction without residual deficits; Z87.891 Personal history of nicotine dependence; Z95.2 Presence of prosthetic heart valve; Z96.659 Presence of unspecified artificial knee joint
CPT/HCPCS: 71010; 80048; 80053; 82550; 83735; 83880; 84443; 84484; 85025; 85027; 85610; 85730; 93005; J1650; J7030

== ENCOUNTER 2016-07-31 12:38 | Emergency (ER) | payer MEDICARE ==
[~2016-07-31] VITALS: Ht 170.2 cm; Wt 87.0 kg
[~2016-07-31 12:38] MED LIST changes: +METO-309 PO; -METO25TA3 PO
[2016-07-31 12:39] VITALS: BP 112/66; PULSE 109; RESP 16; TEMP 98.4; O2SAT 94
--- NOTE | 2016-07-31 13:25 | PD ---
HPI . Intermittent shortness of breath (Dalia Rivera) Chief Complaint: Respiratory Symptoms Time Seen by Provider: 13:25 (Dalia Rivera) Time Seen by Provider: 13:25 (Byron Wyman MD) Travel History International Travel<30 days: No Contact w/Intl Traveler<30days: No Traveled to known affect area: No (Dalia Rivera) History of Present Illness HPI 89-year-old male with multiple medical problems including A. fib, CHF, CAD, cardiomyopathy, chronic back pain with compression fracture of L4 that is now healing per reports from him and the , mitral valve replacement, history of bacterial endocarditis in 2006, left knee pain secondary left knee replacement surgery, left kidney mass status post cryoablation being followed by oncology here with complaints of intermittent shortness of breath. tells me that patient has intermittent exacerbations of CHF. His condition initially starts with slight weight gain, edema of the lower extremities and intermittent shortness of breath all of which he is currently experiencing. She tells me that yesterday he was working with home physical therapy and his oxygen saturation was about 93%. She thinks that he may have had some wheezing at the time. She did reach out to his primary care provider at the [facility] and was told to come to the emergency department for evaluation. Patient tells me that he had some intermittent shortness of breath, but it is not significant at this time. He also tells me that he may of had some chest pain, but is not experiencing it presently. He denies any chest pain, nausea, vomiting or diaphoresis. He does report having some diarrhea Thursday of this week that has now subsided. (Dalia Rivera) PFSH Past Medical History Hx Anticoagulant Therapy: Yes (coumadin) Arthritis: Yes Asthma: No Atrial Fibrillation: Yes Autoimmune Disease: No Blood Disorders: No Anxiety: No Depression: No Heart Rhythm Problems: Yes Cancer: Yes (renal) Cardiac Catheterization: Yes Cardiovascular Problems: Yes (chf,afib; floppy valve, EF is 30%) High Cholesterol: Yes Chemotherapy: Yes (cryoablasion for mass on kidneys) Chest Pain: Yes Congestive Heart Failure: Yes (EVF 30%, had bacterial endocarditis.) COPD: No Cerebrovascular Accident: Yes Diabetes: No Diminished Hearing: Yes (HEARING AID BILATERALLY) Endocrine: No Gastrointestinal Disorders: Yes (constipation) GERD: Yes Genitourinary: No Headaches: Yes (TEMPORAL ARTERITIS) Hepatitis: No Hiatal Hernia: No Hypertension: No Immune Disorder: No Implanted Vascular Access Dvce: Yes Kidney Stones: No Musculoskeletal: Yes Neurologic: Yes Psychiatric: No Reproductive: No Respiratory: Yes Integumentary: Yes Immunizations Current: Yes Migraines: No Radiation Therapy: No Renal Failure: No Seizures: No Sickle Cell Disease: No Sleep Apnea: No Thyroid Disease: No Ulcer: No (Dalia Rivera) Past Surgical History Abdominal Surgery: Yes (HERNIA REPAIR right groin 1994) AICD: No Body Medical Devices: PROSTHESIS IN THE THROAT, MITRAL VALVE REPLACEMENT 2003 Cardiac Surgery: Yes (OPEN HEART FOR MVP 2003) Coronary Stent: Yes Ear Surgery: No Endocrine Surgery: No Eye Surgery: No Genitourinary Surgery: No Gynecologic Surgery: No Joint Replacement: Yes (left knee) Neurologic Surgery: No Oral Surgery: No Pacemaker: No Thoracic Surgery: Yes Other Surgery: Yes (PROTHESIS IN NECK left / CRYOABLATION) (Dalia Rivera) Social History Alcohol Use: No Tobacco Use: No Substance Use: Yes (Dalia Rivera) Allergies-Medications (Allergen,Severity, Reaction): Coded Allergies: Coreg (Verified Allergy, Severe, 04/29/16) Adhesives (Verified Adverse Reaction, Severe, SKIN TEARS, 04/29/16) Hydrocodone (Verified Adverse Reaction, Mild, 04/29/16) REPORTS RED SPOTS ON SKIN AND TINGLING Reported Meds & Prescriptions Reported Meds & Active Scripts Active Lopressor (Metoprolol Tartrate) 50 Mg Tab 50 Mg PO Q12HR Coumadin (Warfarin) 5 Mg Tab 5 Mg PO DAILY@1600 Furosemide 40 Mg Tab 40 Mg PO DAILY Finasteride 5 Mg Tab 5 Mg PO HS Tacrolimus Topical 0.1 % Oint 1 Applic TOPICAL DAILY PRN Multi-Vitamin/Minerals (Multiple Vitamins W/ Minerals) 1 Tab Tab 1 Tab PO DAILY Vitamin D3 (Cholecalciferol) 1,000 Unit Tab 1,000 Units PO DAILY Magnesium Oxide 420 Mg Tab 420 Mg PO BID Ultram (Tramadol HCl) 50 Mg Tab 100 Mg PO Q8HR PRN Tylenol (Acetaminophen) 325 Mg Tab 325 Mg PO Q12HR PRN Proscar (Finasteride) 5 Mg Tab 5 Mg PO DAILY Do not crush. Pravachol (Pravastatin) 20 Mg Tab 20 Mg PO HS Omeprazole 20 Mg Tab 20 Mg PO BID Lisinopril 2.5 Mg Tab 2.5 Mg PO DAILY Hibiclens Topical (Chlorhexidine Gluconate) 4% Liq 1 Applic TOPICAL EVERY OTHER DAY Flomax (Tamsulosin HCl) 0.4 Mg Cap 0.4 Mg PO DAILY Colace (Docusate Sodium) 100 Mg Cap 200 Mg PO BID Amitriptyline (Amitriptyline HCl) 10 Mg Tab 10 Mg PO HS Clotrimazole AF Topical (Clotrimazole) 1% Cream 1 Applic TOPICAL BID Potassium Chloride ER (Potassium Chloride) 10 Meq Cap 10 Meq PO BID (Byron Wyman MD) Review of Systems General / Constitutional: Positive: Weight Gain, No: Fever Eyes: No: Visual changes HENT: No: Headaches Cardiovascular: No: Chest Pain or Discomfort Respiratory: Positive: Shortness of Breath, Wheezing Gastrointestinal: No: Abdominal Pain Genitourinary: No: Dysuria Musculoskeletal: Positive: Edema, No: Pain Skin: No Rash Neurologic: No: Weakness Psychiatric: No: Depression Endocrine: No: Polydipsia Hematologic/Lymphatic: No: Easy Bruising (Dalia Rivera) Physical Exam Narrative GENERAL: AAO x 3, no acute distress, Well-nourished, well-developed patient. SKIN: Warm and dry. No visible rashes or bruising. HEAD: Normocephalic and atraumatic. EYES: No scleral icterus. No injection or drainage. EOM intact, PERRLA ENT: No nasal drainage noted. Mucous membranes pink. Airway patent. no oropharynx abnormality NECK: Supple, trachea midline. No JVD. No lymphadenopathy CARDIOVASCULAR: Regular rate and rhythm without murmurs, gallops, or rubs. RESPIRATORY: Breath sounds equal bilaterally. slight mild scattered rales. GASTROINTESTINAL: Abdomen soft, non-tender, nondistended. EXTREMITIES: No cyanosis. b/l trace edema lower extremities, BACK: Nontender without obvious deformity. No CVA tenderness. NEURO: CN II-12 intact, supervisor area strength normal b/l, UE and LE 5/5, no focal deficits PSYCH: AAO x 3, normal affect. (Dalia Rivera) Data Data Last Documented VS Vital Signs Date Time Temp Pulse Resp B/P Pulse Ox O2 Delivery O2 Flow Rate FiO2 6/22/17 13:39 100 Nasal Cannula 2 07/31/16 13:39 66 16 07/31/16 12:39 98.4 112/66 (Byron Wyman MD) Orders Electrocardiogram (07/31/16 13:35) B-Type Natriuretic Peptide (07/31/16 13:35) Ckmb (Isoenzyme) Profile (07/31/16 13:35) Complete Blood Count With Diff (07/31/16 13:35) Comprehensive Metabolic Panel (07/31/16 13:35) Magnesium (Mg) (07/31/16 13:35) Prothrombin Time / Inr (Pt) (07/31/16 13:35) Act Partial Throm Time (Ptt) (07/31/16 13:35) Troponin I (07/31/16 13:35) Chest, Single Ap (07/31/16 13:35) Ecg Monitoring (07/31/16 13:35) Bilateral Bp Monitoring (07/31/16 13:35) Iv Access Insert/Monitor (07/31/16 13:35) Oximetry (07/31/16 13:35) Oxygen Administration (07/31/16 13:35) Sodium Chloride 0.9% Flush (Ns Flush) (07/31/16 13:45) (Byron Wyman MD) MDM Medical Decision Making Medical Screen Exam Complete: Yes Emergency Medical Condition: Yes Medical Record Reviewed: Yes Differential Diagnosis CHF exacerbation, less likely PNA, less likely pulmonary emboli, afib with RVR, CKD, Narrative Course 89 yr old male here with c/o intermittent SOB and possible exacerbation of CHF. IV access obtained, labs and CXR ordered. BNP: elevated from last visit to 128. Patient has CKD and BUN/Creat similar to last visit, with slightly elevated BUN 34/creatinine 1.66. He also seems to have a multifactorial anemia and H/H stable since last visit. Patient does seem to have a mild exacerbation of CHF. He is already on lasix 40 daily. He also takes K+ daily. INR is subtherapeutic at 1.2 and has been subtherapeutic for some time. I recommend f/u with his PCP. Case discussed with Dr. Wyman. We will provide 20 mg IV lasix here in ED. Patient will be dc home with aldactone 25 mg daily for 5 days. We are aware of the potassium 10 meq BID. I had a discussion with patient and found that he is eating a lot of canned products. This is likely the cause of his exacerbation of CHF like symptoms. I 've explained to him that these products contain lots of salt. He will try to decrease his oral intake of these types of products. I recommend follow-up with primary care provider in the next 2-3 days. Patient verbalized understanding of instructions, questions were answered, and thanked me for their care. I advised them if their condition worsens, please return to the nearest emergency room for further care. (Dalia Rivera) Interpretation(s) ATRIAL FIB 60'S, NO STEMI PATTERN...READ BY MD MARCELINA (Byron Wyman MD) Diagnosis Primary Impression: SOB (shortness of breath) Additional Impression: CHF (congestive heart failure) Qualified Code: I50.9 - Chronic congestive heart failure, unspecified congestive heart failure type Patient Instructions: General Instructions Additional Instructions: Please return to emergency department if your symptoms return or worsen. Follow up with your primary care provider. Take medications as prescribed. Please have your INR followed closely by her primary care provider. It has been low during your last 2 visits here in the emergency department . Try to cut down on your salt intake as we discussed. Med/Other Pt SpecificInfo: Prescription(s) given (Dalia Rivera) Scripts Spironolactone (Aldactone)25 Mg Tab25 Mg PO DAILY #5 TAB Ref 0 Prov:Byron Wyman MD 07/31/16 Disposition: 01 DISCHARGE HOME Condition: Stable Dalia Rivera Jul 31, 2016 13:25 Byron Wyman MD Jul 31, 2016 13:54 Total Creatine Kinase 53 U/L Troponin I LESS THAN 0.02 NG/ML B-Type Natriuretic Peptide 128 PG/ML Total Protein 6.8 GM/DL Albumin 3.4 GM/DL (Dalia Rivera) MDM Medical Decision Making Medical Screen Exam Complete: Yes Emergency Medical Condition: Yes Medical Record Reviewed: Yes Differential Diagnosis CHF exacerbation, less likely PNA, less likely pulmonary emboli, afib with RVR, CKD, Narrative Course 89 yr old male here with c/o intermittent SOB and possible exacerbation of CHF. IV access obtained, labs and CXR ordered. BNP: elevated from last visit to 128. Patient has CKD and BUN/Creat similar to last visit, with slightly elevated BUN 34/creatinine 1.66. He also seems to have a multifactorial anemia and H/H stable since last visit. Patient does seem to have a mild exacerbation of CHF. He is already on lasix 40 daily. He also takes K+ daily. INR is subtherapeutic at 1.2 and has been subtherapeutic for some time. I recommend f/u with his PCP. (Dalia Rivera) Interpretation(s) ATRIAL FIB 60'S, NO STEMI PATTERN...READ BY MD MARCELINA (Byron Wyman MD) Condition: Stable Dalia Rivera Jul 31, 2016 13:25 Byron Wyman MD Jul 31, 2016 13:54
[2016-07-31 13:28] VITALS: PULSE 84; RESP 20; O2SAT 95
[2016-07-31 13:35] VITALS: PULSE 67; RESP 22; O2SAT 100
[2016-07-31 13:39] VITALS: PULSE 66; RESP 16
[2016-07-31] MEDS ORDERED: SODIUM CHLORIDE 0.9% FLUSH 10 ML FLUSH IVF PRN (13:45)
[2016-07-31] MEDS ORDERED: DOCU100C PO (13:57)
[2016-07-31 14:07] LABS: AUTOMATED NEUTROPHIL # 3.2 TH/MM3 (1.8-7.7); BASOPHIL % 0.8 % (0.0-2.0); EOSINOPHIL # 0.2 TH/MM3 (0-0.4); EOSINOPHIL % 3.3 % (0.0-4.0); HEMATOCRIT 35.7 % (39.0-51.0); HEMO FLAGS DIFF FINAL; LYMPH % 21.5 % (9.0-44.0); LYMPHOCYTE # 1.1 TH/MM3 (1.0-4.8); MEAN CORPUSCULAR HEMOGLOBIN 28.8 PG (27.0-34.0); MEAN CORPUSCULAR HGB CONC 32.3 % (32.0-36.0); MONO % 9.3 % (0.0-8.0); NEUT % 65.1 % (16.0-70.0); PLATELET COUNT 160 TH/MM3 (150-450); RED BLOOD COUNT 4.01 MIL/MM3 (4.50-5.90); RED CELL DISTRIBUTION WIDTH 15.2 % (11.6-17.2); WHITE BLOOD COUNT 4.9 TH/MM3 (4.0-11.0)
[2016-07-31 14:15] LABS: INTERNATIONAL NORMALIZED RATIO 1.2 RATIO; PROTHROMBIN TIME - PATIENT 13.8 SEC (9.8-11.6)
[2016-07-31 14:27] LABS: ALT (GPT) 16 U/L (12-78); ANION GAP 6 MEQ/L (5-15); AST (GOT) 25 U/L (15-37); BICARBONATE 29.8 MEQ/L (21.0-32.0); BLOOD UREA NITROGEN 34 MG/DL (7-18); CHLORIDE 105 MEQ/L (98-107); GLOMERULAR FILTRATION RATE 39 ML/MIN (>89); MAGNESIUM 2.3 MG/DL (1.5-2.5); POTASSIUM 4.6 MEQ/L (3.5-5.1); SODIUM (NA) 141 MEQ/L (136-145)
[2016-07-31 14:31] LABS: ALKALINE PHOSPHATASE 82 U/L (45-117); TOTAL BILIRUBIN ADULT 0.8 MG/DL (0.2-1.0)
[2016-07-31 14:33] LABS: CREATINE KINASE 53 U/L (39-308)
--- NOTE | 2016-07-31 14:49 | RADRPT ---
EXAM DATE/TIME: 07/31/2016 13:48 [facility] COMPARISON: CHEST SINGLE AP, June 26, 2016, 12:40. INDICATIONS : Short of breath. MEDICAL HISTORY : Cardiovascular disease. Congestive heart failure. Stroke. SURGICAL HISTORY : Total knee replacement, left. Valve replacement. Vocal cord prosthesis. Hernia repair. ENCOUNTER: Initial ACUITY: 2 days PAIN SCORE: 0/10 LOCATION: Bilateral chest FINDINGS: Postsurgical changes of prior median sternotomy and aortic valve replacement. Lungs are hypoaerated b ut are otherwise clear. Pulmonary vascularity is within normal limits. Remainder of exam is unchanged . CONCLUSION: 1. Postsurgical features. 2. Mild stable cardiomegaly without failure. Humberto Jensen MD on July 31, 2016 at 14:46 Board Certified Radiologist. This report was verified electronically.
[2016-07-31] MEDS ORDERED: SPIR25 PO (15:21)
[2016-07-31] MEDS ORDERED: FUROSEMIDE 20 MG/2 ML VIAL IV PUSH ONE (15:30)
[2016-07-31 15:31] VITALS: BP 142/68; PULSE 63; O2SAT 100
--- NOTE | 2016-08-01 16:33 | EKG ---
Date Performed: 07/31/2016 Time Performed: 13:38:55 PTAGE: 89 years EKG: Sinus rhythm with PACs Compared to PREVIOUS TRACING , the patient has now converted to sinus rhythm with PACs. PREVIOUS TRAC ING 06/26/2016 19.07.07 DOCTOR: Fanny Figueroa Interpretating Date/Time 08/01/2016 16:32:49
== END 2016-07-31 16:00 | disposition home or self-care (01) ==
LOC: NEPC 12:38
DX: R06.02 Shortness of breath (principal); I50.9 Heart failure, unspecified; I49.1 Atrial premature depolarization; I48.91 Unspecified atrial fibrillation; I42.9 Cardiomyopathy, unspecified; I25.10 Atherosclerotic heart disease of native coronary artery without angina pectoris; K21.9 Gastro-esophageal reflux disease without esophagitis; Z95.2 Presence of prosthetic heart valve; Z79.01 Long term (current) use of anticoagulants; Z86.73 Personal history of transient ischemic attack (TIA), and cerebral infarction without residual deficits; Z95.5 Presence of coronary angioplasty implant and graft
CPT/HCPCS: 71010; 80053; 82550; 83735; 83880; 84484; 85025; 85610; 85730; 93005; 96374; 99285; J1940

== ENCOUNTER 2016-09-11 13:52 | Emergency (ER) | payer MEDICARE ==
[~2016-09-11] VITALS: Ht 170.2 cm; Wt 85.0 kg
[~2016-09-11 13:52] MED LIST changes: -COLA100C3 PO; +DOCU100C PO; -FINA5TAB2 PO; -LISI2.5T3 PO; +SPIR25 PO
[2016-09-11 13:53] VITALS: BP 111/65; PULSE 82; RESP 24; TEMP 97.7; O2SAT 96
--- NOTE | 2016-09-11 14:24 | PD ---
Physical Exam Time Seen by Provider: 14:23 Narrative 89 y/o male with 4 days of L ear bleeding. On coumadin. Vital signs reviewed. seen at triage desk. Awaiting bed placement. Data Data Last Documented VS Vital Signs Date Time Temp Pulse Resp B/P Pulse Ox O2 Delivery O2 Flow Rate FiO2 09/11/16 13:53 97.7 82 24 111/65 96 Room Air [facility] Medical Record Reviewed: Yes Supervised Visit with MAZIN: Perfecto Hernandez Sep 11, 2016 14:24
[2016-09-11] MEDS ORDERED: CORTI10A LEFT EAR (16:42)
[2016-09-11] MEDS ORDERED: PRAV40TA2 PO (16:58)
[2016-09-11] MEDS ORDERED: AMOX875T PO (17:35)
--- NOTE | 2016-09-11 17:42 | PD ---
HPI Chief Complaint: ENT Complaint Time Seen by Provider: 17:36 Travel History International Travel<30 days: No Contact w/Intl Traveler<30days: No Traveled to known affect area: No History of Present Illness HPI 89-year-old male that presents to the ED for evaluation of left ear bleeding. Patient states that he's had this since Thursday. Per patient she got new hearing a sense ever since she put it he noticed some bleeding. Per patient he has some pain in his neck [facility] Per she was concerned because the symptoms continue and she didn't feel like they did a good assessment. Patient does take Coumadin secondary to heart condition. They did check his INR yesterday was 3. He denies any other medical issues. She states that the pain on the year gets worse when something gets on the ear. No chest pain or shortness of breath. No other medical issues. She has been applying the drops prescribed by his doctor. He was told to follow with his die reamer on Thursday. Pain per patient is 4 out of 10. PFSH Past Medical History Hx Anticoagulant Therapy: Yes Arthritis: Yes Asthma: No Atrial Fibrillation: Yes Autoimmune Disease: No Blood Disorders: No Anxiety: No Depression: No Heart Rhythm Problems: Yes (Afib) Cancer: Yes (renal) Cardiac Catheterization: Yes (CE) Cardiovascular Problems: Yes High Cholesterol: Yes Chemotherapy: Yes (cryoablasion for mass on kidneys) Chest Pain: Yes Congestive Heart Failure: Yes (EVF 30%, had bacterial endocarditis.) COPD: No Cerebrovascular Accident: Yes Diabetes: No Diminished Hearing: Yes (HEARING AID BILATERALLY) Endocrine: No Gastrointestinal Disorders: Yes (constipation) GERD: Yes Genitourinary: No Headaches: Yes (Right Temporal Arteritis) Hepatitis: No Hiatal Hernia: No Hypertension: No Immune Disorder: No Implanted Vascular Access Dvce: Yes Kidney Stones: No Musculoskeletal: Yes Neurologic: Yes Psychiatric: No Reproductive: No Respiratory: Yes Integumentary: Yes Immunizations Current: Yes Migraines: No Radiation Therapy: No Renal Failure: No Seizures: No Sickle Cell Disease: No Sleep Apnea: No Thyroid Disease: No Ulcer: No Tetanus Vaccination: > 5 Years Influenza Vaccination: Yes Past Surgical History Abdominal Surgery: Yes (HERNIA REPAIR right groin 1994) AICD: No Body Medical Devices: PROSTHESIS IN THE THROAT, MITRAL VALVE REPLACEMENT 2003 Cardiac Surgery: Yes (OPEN HEART FOR MVP 2003) Coronary Stent: Yes Ear Surgery: No Endocrine Surgery: No Eye Surgery: No Genitourinary Surgery: No Gynecologic Surgery: No Joint Replacement: Yes (left knee) Neurologic Surgery: No Oral Surgery: No Pacemaker: No Thoracic Surgery: Yes Other Surgery: Yes (PROTHESIS IN NECK left / CRYOABLATION) Social History Alcohol Use: No Tobacco Use: Yes (10 yrs ago quit) Substance Use: No (pt denies ) Allergies-Medications (Allergen,Severity, Reaction): Coded Allergies: Coreg (Verified Allergy, Intermediate, RASH, 09/11/16) Adhesives (Verified Adverse Reaction, Severe, SKIN TEARS, 09/11/16) Hydrocodone (Verified Adverse Reaction, Mild, HIVES, 09/11/16) Reported Meds & Prescriptions Reported Meds & Active Scripts Active Amoxicillin 875 Mg Tab 875 Mg PO BID 10 Days Lopressor (Metoprolol Tartrate) 50 Mg Tab 50 Mg PO Q12HR Coumadin (Warfarin) 5 Mg Tab 5 Mg PO DAILY@1600 Furosemide 40 Mg Tab 40 Mg PO DAILY Tacrolimus Topical 0.1 % Oint 1 Applic TOPICAL DAILY PRN Multi-Vitamin/Minerals (Multiple Vitamins W/ Minerals) 1 Tab Tab 1 Tab PO DAILY Vitamin D3 (Cholecalciferol) 1,000 Unit Tab 1,000 Units PO DAILY Magnesium Oxide 420 Mg Tab 420 Mg PO BID Ultram (Tramadol HCl) 50 Mg Tab 100 Mg PO Q8HR PRN Tylenol (Acetaminophen) 325 Mg Tab 325 Mg PO Q12HR PRN Proscar (Finasteride) 5 Mg Tab 5 Mg PO DAILY Do not crush. Omeprazole 20 Mg Tab 20 Mg PO BID Hibiclens Topical (Chlorhexidine Gluconate) 4% Liq 1 Applic TOPICAL EVERY OTHER DAY Flomax (Tamsulosin HCl) 0.4 Mg Cap 0.4 Mg PO DAILY Amitriptyline (Amitriptyline HCl) 10 Mg Tab 10 Mg PO HS Clotrimazole AF Topical (Clotrimazole) 1% Cream 1 Applic TOPICAL BID Potassium Chloride ER (Potassium Chloride) 10 Meq Cap 10 Meq PO BID Reported Pravastatin 40 Mg Tab 40 Mg PO HS Ptabeqnd-Ayjtyixcs-SG Otic Drops (Neomycin/Polymyxin/Hydrocortisone) 1 % Soln 4 Drop LEFT EAR TID Docusate Sodium 100 Mg Cap 200 Mg PO BID Review of Systems Except as stated in HPI: all other systems reviewed are Neg Physical Exam Narrative GENERAL: Well-nourished, well-developed patient in no apparent distress. SKIN: Warm and dry. HEAD: Atraumatic. Normocephalic. EYES: Pupils equal and round reactive to light and accommodation. No scleral icterus. No injection or drainage. ENT: No nasal bleeding or discharge. Mucous membranes pink and moist. TMs are clear with no sign of infection or perforation. No mastoid tenderness. Ear canals are intact bilaterally. No lymphadenopathy. Nostril mucosa is red and moist with clear mucus noted. No sinus tenderness to palpation noted. Tonsils are not enlarged or swollen. No ulvua Deviation. Tongue is midline. Patient's ear canal on the left is swelling with blood clots noted. Minimal bleeding noted. Patient does appear to have what appears to be scar tissue on the floor of the ear canal likely secondary from scratch from the hearing aid. NECK: Trachea midline. No JVD. No meningeal signs noted CARDIOVASCULAR: Regular rate and rhythm. RESPIRATORY: No accessory muscle use. Clear to auscultation. Breath sounds equal bilaterally. GASTROINTESTINAL: Abdomen soft, non-tender, nondistended. Hepatic and splenic margins not palpable. MUSCULOSKELETAL: Extremities without clubbing, cyanosis, or edema. No obvious deformities. NEUROLOGICAL: Awake and alert. No obvious cranial nerve deficits. Motor grossly within normal limits. Five out of 5 muscle strength in the arms and legs. Normal speech. PSYCHIATRIC: Appropriate mood and affect; insight and judgment normal. Data Data Last Documented VS Vital Signs Date Time Temp Pulse Resp B/P Pulse Ox O2 Delivery O2 Flow Rate FiO2 09/11/16 16:45 18 09/11/16 13:53 97.7 82 111/65 96 Room Air MDM Medical Decision Making Medical Screen Exam Complete: Yes Emergency Medical Condition: Yes Medical Record Reviewed: Yes Differential Diagnosis Otitis externa versus otitis media versus laceration versus perforated eardrum Narrative Course 89-year-old male that presents to the ED for evaluation of left ear pain and bleeding. Patient was properly examined and was found to have signs and symptoms which appear to be consistent with bleeding from a scratch likely secondary to the straining. Possible infection noted. Patient's ear canal does appear to be swollen. Possible otitis externa likely. Patient does take Coumadin. Patient had his INR checked yesterday was 3. He was told to discontinue his medication for today. He has done so. was mainly concerned because symptoms are not improving with the drops. Patient has only had the drops one day. At this time I recommend that he continue using the drops. I will and amoxicillin as the eardrum itself does appear to be red and swollen. No sign of perforation noted however. I do recommend close follow with her ENT and the regional office coordinator. Follow up with PCP. See ED worsening symptoms. Diagnosis Primary Impression: Otitis externa of left ear Qualified Code: H60.322 - Acute hemorrhagic otitis externa of left ear Additional Impression: Otitis media Qualified Code: H66.002 - Acute suppurative otitis media of left ear without spontaneous rupture of tympanic membrane, recurrence not specified Referrals: Yovani Rodriguez MD Patient Instructions: General Instructions Additional Instructions: Take medication as prescribed. Continues in the drops. Follow with ENT if possible tomorrow. See ED if worsening symptoms. Med/Other Pt SpecificInfo: Prescription(s) given Scripts Amoxicillin 875 Mg [id number] Mg PO BID 10 Days Prov:Ricarda Caal DO 09/11/16 Disposition: 01 DISCHARGE HOME Condition: Stable Martin Paz Sep 11, 2016 17:42
[2016-09-11 17:45] VITALS: BP 106/70; TEMP 97.9
== END 2016-09-11 17:45 | disposition home or self-care (01) ==
LOC: NEPD 13:52
DX: H60.322 Hemorrhagic otitis externa, left ear (principal); H66.92 Otitis media, unspecified, left ear; I48.91 Unspecified atrial fibrillation; I50.9 Heart failure, unspecified; K21.9 Gastro-esophageal reflux disease without esophagitis; E78.00 Pure hypercholesterolemia, unspecified; M13.88 Other specified arthritis, other site; Z86.73 Personal history of transient ischemic attack (TIA), and cerebral infarction without residual deficits; Z79.01 Long term (current) use of anticoagulants
CPT/HCPCS: 99283